=== PATIENT | female | born 1955 | race Caucasian/White ===

== ENCOUNTER 2023-06-12 11:00 | Outpatient (CLI) | payer MEDICARE, SELFPAY ==
[2023-06-12 11:27] LABS: Basophils Percent Auto 0.4 % (0.2-1.2); Eosinophils Absolute Auto 0.2 K/mm3 (0-0.3); Eosinophils Percent Auto 2.2 % (0-4.4); Hemoglobin 12.8 g/dL (12.0-15.0); Immature Granulocyte Absolute 0.05 K/mm3 (0.00-0.031); Immature Granulocyte Percent A 0.5 % (0-0.5); Lymphocytes Absolute Auto 2.24 K/mm3 (0.9-3.2); Lymphocytes Percent Auto 24.5 % (18.3-44.2); Mean Corpuscular HGB Conc 32.8 g/dl (32-36); Mean Corpuscular Hemoglobin 29.7 pg (26-34); Mean Corpuscular Volume 90.5 fl (80-100); Mean Platelet Volume 8.5 fl (7.4-10.4); Monocytes Absolute Auto 0.6 K/mm3 (0.1-0.6); Monocytes Percent Auto 6.1 % (2.6-8.5); Neutrophils Absolute Auto 6.1 K/mm3 (1.3-6.7); Neutrophils Percent Auto 66.3 % (45.5-73.1); Platelet Count Result 336 k/mm3 (150-375); Red Blood Count 4.31 M/mm3 (4.2-5.4); Red Cell Distribution Width 12.6 % (11.5-14.5); White Blood Count 9.2 K/mm3 (4.5-10.0)
[2023-06-12 12:31] LABS: Alanine Aminotransferase 20 U/L (6-35); Albumin Level 4.4 g/dL (3.5-5.1); Alkaline Phosphatase 55 U/L (38-126); Anion Gap 8 mmol/L (8-16); Aspartate Amino Transferase 23 U/L (14-36); Bilirubin,Total 0.7 mg/dL (0.2-1.3); Blood Urea Nitrogen 35 mg/dL (7-17); Calcium 9.7 mg/dL (8.4-10.2); Carbon Dioxide 28 mmol/L (22-30); Chloride 99 mmol/L (98-107); Estimated Glomerular Filt Rate 34; Glucose 109 mg/dL (65-110); Lactate Dehydrogenase 217 U/L (120-246); Potassium 3.5 mmol/L (3.4-5.0); Sodium 135 mmol/L (137-145)
[2023-06-12 12:41] LABS: Iron 93 ug/dL (37-170)
[2023-06-12 12:45] LABS: Percent Iron Saturation 27 % (20-50)
[2023-06-12 13:00] LABS: Thyroid Stimulating Hormone 0.099 uIU/mL (0.465-4.680)
[2023-06-12 13:36] LABS: Folic Acid 18.6 ng/mL (2.76->20)
[2023-06-15 07:23] LABS: Methylmalonic Acid 331 nmol/L (87-318)
[2023-06-16 21:00] LABS: Soluble Transferrin Receptor 2.01 mg/L (0.76-1.76)
== END 2023-06-12 11:01 | disposition home or self-care (01) ==
PROVIDERS: Visit Provider Internal Medicine Hematology & Oncology
DX: D64.9 Anemia, unspecified (principal)
CPT/HCPCS: 36415; 80053; 82607; 82728; 82746; 83540; 83550; 83615; 83921; 84238; 84443; 85025

== ENCOUNTER 2023-11-10 09:35 | Outpatient (CLI) | payer MEDICARE, OTHER, SELFPAY ==
[2023-11-10 09:58] LABS: Basophils Absolute Auto 0.1 K/mm3 (0.0-0.1); Basophils Percent Auto 0.8 % (0.2-1.2); Eosinophils Absolute Auto 0.2 K/mm3 (0-0.3); Eosinophils Percent Auto 3.2 % (0-4.4); Hematocrit 36.8 % (37.0-47.0); Immature Granulocyte Absolute 0.02 K/mm3 (0.00-0.031); Immature Granulocyte Percent A 0.3 % (0-0.5); Lymphocytes Absolute Auto 2.18 K/mm3 (0.9-3.2); Lymphocytes Percent Auto 34.5 % (18.3-44.2); Mean Corpuscular HGB Conc 32.6 g/dl (32-36); Mean Corpuscular Hemoglobin 29.9 pg (26-34); Mean Corpuscular Volume 91.5 fl (80-100); Mean Platelet Volume 8.4 fl (7.4-10.4); Monocytes Absolute Auto 0.5 K/mm3 (0.1-0.6); Monocytes Percent Auto 7.6 % (2.6-8.5); Neutrophils Absolute Auto 3.4 K/mm3 (1.3-6.7); Neutrophils Percent Auto 53.6 % (45.5-73.1); Platelet Count Result 267 k/mm3 (150-375); Red Blood Count 4.02 M/mm3 (4.2-5.4); Red Cell Distribution Width 12.1 % (11.5-14.5); White Blood Count 6.3 K/mm3 (4.5-10.0)
[2023-11-10 10:03] LABS: Blood Urea Nitrogen 30 mg/dL (8-26); Carbon Dioxide 29 mmol/L (22-30); Chloride 100 mmol/L (98-109); Estimated Glomerular Filt Rate 28; Glucose 99 mg/dL (70-105); Ionized Calcium (POC) 1.24 mmol/L (1.11-1.31); Sodium 140 mmol/L (138-146)
== END 2023-11-10 09:36 | disposition home or self-care (01) ==
LOC: ANHLAB 09:45
PROVIDERS: Visit Provider Internal Medicine Hematology & Oncology
DX: D64.9 Anemia, unspecified (principal)
CPT/HCPCS: 36415; 80047; 85025

== ENCOUNTER 2024-05-27 13:43 | Outpatient (CLI) | payer MEDICARE, OTHER, SELFPAY ==
[2024-05-27 14:00] LABS: Basophils Percent Auto 0.4 % (0.2-1.2); Eosinophils Absolute Auto 0.2 K/mm3 (0-0.3); Eosinophils Percent Auto 2.4 % (0-4.4); Hematocrit 35.7 % (37.0-47.0); Hemoglobin 11.8 g/dL (12.0-15.0); Immature Granulocyte Absolute 0.04 K/mm3 (0.00-0.031); Immature Granulocyte Percent A 0.6 % (0-0.5); Lymphocytes Absolute Auto 2.39 K/mm3 (0.9-3.2); Lymphocytes Percent Auto 33.5 % (18.3-44.2); Mean Corpuscular HGB Conc 33.1 g/dl (32-36); Mean Corpuscular Hemoglobin 30.4 pg (26-34); Mean Platelet Volume 8.3 fl (7.4-10.4); Monocytes Absolute Auto 0.4 K/mm3 (0.1-0.6); Monocytes Percent Auto 6.2 % (2.6-8.5); Neutrophils Absolute Auto 4.1 K/mm3 (1.3-6.7); Neutrophils Percent Auto 56.9 % (45.5-73.1); Platelet Count Result 260 k/mm3 (150-375); Red Blood Count 3.88 M/mm3 (4.2-5.4); Red Cell Distribution Width 13.6 % (11.5-14.5); White Blood Count 7.1 K/mm3 (4.5-10.0)
[2024-05-27 16:42] LABS: Anion Gap 8 mmol/L (4-12); Blood Urea Nitrogen 32 mg/dL (7-17); Calcium 9.8 mg/dL (8.4-10.2); Carbon Dioxide 29 mmol/L (22-30); Chloride 98 mmol/L (98-107); Estimated Glomerular Filt Rate 32; Glucose 102 mg/dL (65-110); Potassium 4.6 mmol/L (3.4-5.0); Sodium 135 mmol/L (137-145)
[2024-05-27 16:48] LABS: Iron 83 ug/dL (37-170)
[2024-05-27 16:59] LABS: Percent Iron Saturation 26 % (20-50)
== END 2024-05-27 13:44 | disposition home or self-care (01) ==
LOC: ANHLAB 13:46
PROVIDERS: PCP Specialist; Visit Provider Internal Medicine Hematology & Oncology
DX: D64.9 Anemia, unspecified (principal)
CPT/HCPCS: 36415; 80048; 82728; 83540; 83550; 85025

== ENCOUNTER 2025-02-27 14:56 | Outpatient (CLI) | payer MEDICARE, OTHER, SELFPAY ==
--- OUTSIDE RECORDS SUMMARY | 2025-02-27 15:00 | XMS_ITS ---
Author Organization [facility] Address [address] [place], [place] [id number] Care Team Providers Care Historic Interpreter Name Role Phone RAMON BERRY Unavailable [phone] Сергей Cunningham Unavailable Unavailable Allergies Allergen (clinical drug ingredient) Drug/Non Drug Allergy documented on EMR Reaction Allergy Type Onset Date Status oxaprozin Daypro Unknown Drug Allergy Active Aminoglycoside (FN) Aminoglycosides Unknown Drug Allergy Active aspirin Aspirin Unknown Drug Allergy Active Penicillin Unknown Drug Allergy Active quinine Quinine Unknown Drug Allergy Active tetracycline Tetracycline Unknown Drug Allergy A ctive REASON FOR VISIT *General care Social History Tobacco Use: Social History Observation Description Date Details (start date - stop date) Never Smoker NA - NA Tobacco Control (Standard) Question Answer Notes Tobacco use: Nonsmoker AUDIT-C (Standard) Question Answer Notes Did you have a drink containing alcohol in the p ast year? No Points 0 Interpretation Negative Vital Signs Height 67 in 02/17/2025 Weight 217 lbs 02/17/2025 BMI 33.98 kg/m2 02/17/2025 Height-cm 170.18 cm 02/17/2025 Weight-kg 98.43 kg 02/17/2025 Encounters Encounter Location Date Provider Diagnosis [facility] [address] [place], [place] [id number] 02/17/2025 RAMON BERRY Onychomycosis B35.1 ; Pain in right toe(s) M79.674 ; Pain in left toe(s) M79.675 and Atherosclerosis of [place] arteries of extremities with intermittent claudication, bilateral legs I70.213 Assessments Encounter Date Diagnosis (ICD Code) Assessment Notes Treatment Notes Treatment Clinical Notes Section Notes 02/17/2025 Onychomycosis (ICD-10 - B35.1) Nails 1-5 Bilateral were debrided extensively with nail nippers and emery board, reducing length and girth to pink healthy tissue with any subungual debris and necrotic tissue removed 02/17/2025 Pain in right toe(s) (ICD-10 - M79.674) 02/17/2025 Pain in left toe(s) (ICD-10 - M79.675) 02/17/2025 Atherosclerosis of [place] arteries of extremities with intermittent claudication, bilateral legs (ICD-10 - I70.213) Plan Of Treatment Treatment Notes Assessment Notes Onychomycosis Nails 1-5 Bilateral were debrided extensively with nail nippers and emery board, reducing length and girth to pink healthy tissue with any subungual debris and necrotic tissue removed Next Appt Details Follow Up: 9 weeks, Reason: Provider Name:RAMON ALVARADO, 04/28/2025 03:20:00 PM, [address] [facility] [address] [facility] [address], [place], [id number], Progress Notes * Angus LILLYB: 4 (69 yo F)Acc No.[id number]:02/17/2025 Patient: Latesha BATRES Provider: Chelo Berry DPM :1955 A ge:69 Y S ex:Female Date:02/17/2025 Address:[address] [place], [place] [id number] Subjective: * Chief Complaints: * 1 . *General care. * HPI: H PI: General care P atient presents to the office for at risk foot care. Patient states that their nails are thickened, elongated and painful. Patient states that it is aggravated by shoe gear. Onset is gradual. Patient denies being diabetic., Patient is taking prescription blood thinners., Date last seen by Dr. Cunningham was 02/17/25. , Initials ars. * Medical History: A kaci reflux, Pneumonia, Stroke, Anemia, Asthma/Bronchitis, Cancer, GERD, Leg/Feet cramps, Respiratory disease, Arthritis, Bladder infections, Gout, Angina, Back Trouble, Heart Disease, Varicose veins, High blood pressure, Lung Disease, Restless leg syndrome, Family member . * Family History: F ather: unknown, cancer, kidney stones. M other: unknown, Acid Reflux, arthritis. B rother: unknown, Cancer, High Blood Pressure. S ister: unknown, High Blood Pressure, cancer. * Social History: T obacco Use: T obacco Control (Standard) T obacco use: N onsmoker D rug/Alcohol: A CHAZ-C (Standard) D id you have a drink containing alcohol in the past year? N o P oints 0 I nterpretation N egative * Allergies: Q uinine, Daypro, Penicillin, Aspirin, Tetracycline, Aminoglycosides. Objective: * Vitals: S hoe Size: 10, Wt:217lbs, Wt-k.43 kg, Ht: 67 in, Ht-cm: 170.18 cm, BMI:33.98Index, Body Surface Area: 2.15. * Examination: C onstitutional: Constitutional T he patient is awake, alert, well developed, well groomed and well nourished. . D ermatologic: Skin findings: S kin is thin, atrophic and lacking pedal hair. . Nail pathology: N ails 1-5 bilateral are elongated, thick, discolored, and dystrophic with subungual debris. They are painful to palpation . Ulcer: T here is no evidence of ulceration noted at this time . Hyperkeratotic Skin Lesion T here is no evidence of hyperkeratosis . M usculoskeletal: Muscle Strength M uscle strength is 5/5 in regards to dorsiflexion, plantarflexion, inversion, and eversion in bilateral lower extremities. . Foot Structure T he foot structure is noted to be normal bilaterally . Pain on palpation T here is no pain on palpation . Gait T here is normal gait noted . N eurologic: Muscle power: 5 /5 bilaterally . Gross sensation G ross sensation is intact to light touch. . V ascular: Dorsalis pedis pulse: 0 /4 bilateral . Posterior tibial pulse: 0 /4 bilaterally . Capillary refill: g reater than 3 seconds bilaterally .? Temperature gradient: w arm to cool bilaterally . ? Assessment: * Assessment: 1. O nychomycosis - B35.1 (Primary) 2 . P ain in right toe(s) - M79.674? 3. P ain in left toe(s) - M79.675 4 . A therosclerosis of [place] arteries of extremities with intermittent claudication, bilateral legs - I70.213 Plan: * Treatment: * Procedure Codes: 1 1721 DEBRIDE NAIL, 6 OR MORE, Modifiers: Q8 * Follow Up: 9 weeks * Billing Information: * Visit Code: * Procedure Codes: 65216 DEBRIDE NAIL, 6 OR MORE. Modifiers: Q8 * Electronic signature of RAMON BERRY DPM on 02/27/2025 at 03:00 PM CDT Sign off status: Pending * Provider: Chelo Berry DPM Date: 0 02/17/2025 Generated for Axel Zacarias/Zi on: 0 02/27/2025 03:00 PM CDT History and Physical Notes * HPI (History of Present Illness) Category Sub-Category Detail Notes Category Not es HPI General care Patient presents to the office for at risk foot care. Patient states that their nails are thickened, elongated and painful. Patient states that it is aggravated by shoe gear. Onset is gradual. Patient denies being diabetic., Patient is taking prescription blood thinners., Date last seen by Dr. Cunningham was 02/17/25. , Initials ars Examination Category Sub-Category Detail Notes Category Not es Constitutional Constitutional The patient is a wake, alert, well developed, well groomed and well nourished. Dermatologic Skin findings: Skin is thin, at rophic and lacking pedal hair. Nail pathology: Nails 1-5 bilateral are elongated, thick, discolored, and dystrophic with subungual debris. They are painful to palpation Ulcer: There is no evidence of ulceration noted at this time Hyperkeratotic Skin Lesion There is no e vidence of hyperkeratosis Musculoskeletal Muscle Strength Muscle strength is 5/5 in regards to dorsiflexion, plantarflexion, inversion, and eversion in bilateral lower extremities. Pain on palpation There is no pain on palpation Foot Structure The foot structure i s noted to be normal bilaterally Gait There is normal gait noted Neurologic Muscle power: 5/5 bilaterally Gross sensation Gross sensation is i ntact to light touch. Vascular Dorsalis pedis pulse: 0/4 bilateral Posterior tibial pulse: 0/4 bilaterally Capillary refill: greater than 3 secon ds bilaterally Temperature gradient: warm to cool bilat erally
--- OUTSIDE RECORDS SUMMARY | 2025-02-27 15:00 | XMS_ITS ---
Author Organization [facility] Address [address] [address] Care Team Providers Care Publication Manager Name Role Phone Javier Momin Unavailable [phone] Social History Sex Assigned At : Social History Observation Description Sex Assigned At Male Encounters Encounter Location Date Provider Diagnosis [facility] [address] [facility] [address] [place] [address] 01/24/2025 Javier Momin Chronic kidney disea se, stage 3b N18.32 ; Essential (primary) hypertension I10 ; Heart failure, unspecified I50.9 ; Renal osteodystrophy N25.0 ; Retention of urine, unspecified R33.9 ; Gastro-esophageal reflux disease without esophagitis K21.9 ; Diverticulosis of large intestine without perforation or abscess without bleeding K57.30 ; Low back pain, unspecified M54.50 ; Vitamin D deficiency, unspecified E55.9 ; Hypothyroidism, unspecified E03.9 ; Chronic fatigue, unspecified R53.82 ; Atherosclerotic heart disease of [place] coronary artery with unspecified angina pectoris I25.119 and CAD (coronary artery disease) I25.10 Assessments Encounter Date Diagnosis (ICD Code) Assessment Notes Treatment Notes Treatment Clinical Notes Section Notes 01/24/2025 Chronic kidney disease, stage 3b (ICD-10 - N18.32) 01/24/2025 Essential (primary) hypertension (ICD-10 - I10) 01/24/2025 Heart failure, unspecified (ICD-10 - I50.9) 01/24/2025 Renal osteodystrophy (ICD-10 - N25.0) 01/24/2025 Retention of urine, unspecified (ICD-10 - R33.9) 01/24/2025 Gastro-esophageal reflux disease without esophagitis (ICD-10 - K21.9) 01/24/2025 Diverticulosis of large intestine without perforation or abscess without bleeding (ICD-10 - K57.30) 01/24/2025 Low back pain, unspecified (ICD-10 - M54.50) 01/24/2025 Vitamin D deficiency, unspecified (ICD-10 - E55.9) 01/24/2025 Hypothyroidism, unspecified (ICD-10 - E03.9) 01/24/2025 Chronic fatigue, unspecified (ICD-10 - R53.82) 01/24/2025 Atherosclerotic heart disease of [place] coronary artery with unspecified angina pectoris (ICD-10 - I25.119) 01/24/2025 CAD (coronary artery disease) (ICD-10 - I25.10) Plan Of Treatment Next Appt Details Provider Name:Javier Momin , 03/28/2025 01:45:00 PM, [address] [facility] [address], [address], Progress Notes * ROSANNA DUMASMELVAB: 4 (69 yo F)Acc No.[id number]:01/24/2025 Progress Notes Patient: STEPHEN BATRES Provider: Arturo BLACKWELL MD, F.A.C.P, F.A.S.N. :1955 A ge:69 Y S ex:Female Date:01/24/2025 Address:[address] [place] [address] Subjective: * Chief Complaints: * * Medical History: Objective: * Vitals: Assessment: * Assessment: 1. C hronic kidney disease, stage 3b - N18.32 2 . E ssential (primary) hypertension - I10 3 . H eart failure, unspecified - I50.9 4 . R enal osteodystrophy - N25.0 5 . R etention of urine, unspecified - R33.9 & #160; 6 . G hannah-esophageal reflux disease without esophagitis - K21.9 7 .?Diverticulosis of large intestine without perforation or abscess without bleeding - K57.30 8 . L ow back pain, unspecified - M54.50 9 . V itamin D deficiency, unspecified - E55.9 1 0. H ypothyroidism, unspecified - E03.9 ?11. C hronic fatigue, unspecified - R53.82 1 2. A therosclerotic heart disease of [place] coronary artery with unspecified angina pectoris - I25.119 1 3. C AD (coronary artery disease) - I25.10 Plan: * Treatment: * Billing Information: * Visit Code: 72903 Office Visit, Est Pt., Level 4. * Procedure Codes: * Electronic signature of Austen Momin MD on 02/27/2025 at 03:00 PM CDT Sign off status: Pending * Provider: Arturo BLACKWELL MD, F.A.C.P, F.A.S.N. Date: 0 01/24/2025 Generated for Printing/Faxing/eTransmitting on: 0 02/27/2025 03:00 PM CDT
--- OUTSIDE RECORDS SUMMARY | 2025-02-27 15:00 | XMS_ITS | Clinical Summary ---
Author Organization [facility] Address [address] [place] [address] Care Team Providers Care Assisted Living Administrator Name Role Phone Сергей Cunningham MD Primary Care Provider + Сергей Cunningham MD Unavailable [phone] Source Comments [facility],non-owned Affiliates and Associated Physician Practices is amultiple site organization consisting of ambulatory clinics and hospital sitesin [place], [place], [place] and [place]. This disclosure is being madepursuant to the Care Everywhere program and may not contain all information available regarding this patient. Last updated 18.[facility] Allergies Active Allergy Reactions Criticality Noted Date Comments Aspirin Other Low 09/11/2014 Unknown Erythromycin Anaphylaxis High 11/19/2018 Oxaprozin Other Low 09/11/2014 Unknown Penicillins Other Low 09/11/2014 unknown Pentazocine Anaphylaxis High 11/19/2018 Quinine Other Low 09/11/2014 Unknown Sumatriptan Anaphylaxis High 11/19/2018 Tetracycline Other Low 09/11/2014 unknown Medications * Be aware that medications may not be up to date on this document. Alwaysverify current medications with the patient. spironolactone (ALDACTONE) 100 MG tablet Take 100 mg by mouth once daily 05/10/20 21 Active acetaminophen-codeine (TYLENOL #4) 300-60 MG tablet TAKE 2 TABLETS BY MOUTH EVERY 4 HOURS NEEDED FOR PAIN . DO NOT EXCEED 6 PER 24 HOURS 12/21/19 22 Active albuterol (PROVENTIL;VENTOLIN) (2.5 MG/3ML) 0.083% nebulizer solution Inhale 2.5 mg by mouth 3 times daily as needed 08/17/20 21 Active amLODIPine (NORVASC) 10 MG tablet Take 10 mg by mouth once daily 05/21/20 21 Active Calcium Carb-Cholecalciferol 600-1000 MG-UNIT Take 1 tablet by mouth 2 times daily 07/05/20 21 Active clopidogrel (PLAVIX) 75 MG tablet Take 75 mg by mouth once daily 11/15/19 22 Active diphenhydrAMINE (BENADRYL) 25 MG capsule Take 25 mg by mouth every 6 hours as needed Active Docusate Sodium (DSS) 100 MG Take 100 mg by mouth once daily 07/12/20 21 Active furosemide (LASIX) 20 MG tablet 07/26/20 21 Active gabapentin (NEURONTIN) 300 MG capsule TAKE 1 CAPSULE BY MOUTH EVERY 8 HOURS 11/30/19 22 Active guanFACINE CR 24hr (INTUNIV) 2 MG tablet Take 2 mg by mouth once daily 11/30/19 22 Active isosorbide mononitrate CR 24hr (IMDUR) 120 MG tablet Take 120 mg by mouth once daily 05/21/20 21 Active levETIRAcetam (KEPPRA) 500 MG tablet Take 500 mg by mouth 2 times daily 11/30/19 22 Active linaCLOtide (LINZESS) 145 MCG capsule Take 145 mcg by mouth once daily 06/22/20 21 Active nitroGLYCERIN (NITROSTAT) 0.4 MG tablet Dissolve 0.4 mg under the tongue Active ondansetron (ZOFRAN) 8 MG tablet TAKE 1 TABLET BY MOUTH EVERY 8 HOURS NEEDED FOR NAUSEA 01/09/20 21 Active pantoprazole EC (PROTONIX) 40 MG tablet Take 40 mg by mouth once daily 10/27/19 22 Active ranolazine ER 12hr (RANEXA) 500 MG tablet Take 1 tablet by mouth 2 times daily 11/18/19 21 Active atorvastatin (LIPITOR) 10 MG tablet 1 tab Active calcium carbonate (CALTRATE) 600 MG tablet Active Cholecalciferol 25 MCG (1000 UT) Active cloNIDine (CATAPRES) 0.1 MG tablet Take 0.1 mg by mouth Active EPINEPHrine (EPIPEN) 0.3 MG/0.3ML auto-injector pen Continuous as needed. Active levalbuterol (XOPENEX) 1.25 MG/3ML nebulizer solution Inhale 3 mL by mouth every 8 hours Active losartan - hydroCHLOROthiazide (HYZAAR) 50-12.5 MG tablet losartan-hydr ochlorothiazi de 50-12.5 mg tablet 01/26/20 22 Active Magnesium 200 MG TABS Active Active Problems Problem Noted Date Diagnosed Date Greater trochanteric pain syndrome 12/24/2021 Lumbar radiculopathy 12/24/2021 Sacroiliac joint dysfunction of right side 12/24 Infectious disease contact 06/03/2021 Chronic kidney disease, unspecified 06/01/2021 Dizziness 05/20/2021 Frequent falls 06/24/2020 Overview (12/24/2021): Last Assessment & Plan: Most likely secondary to right foot drop. Would benefit from an AFO. Right foot drop 06/24/2020 Overview (12/24/2021): Last Assessment & Plan: Stable. Requires AFO to ambulate Right hemiparesis 06/24/2020 Overview (12/24/2021): Last Assessment & Plan: Residual weakness secondary to CVA. Depression screening 06/23/2020 Overview (12/24/2021): Last Assessment & Plan: Negative for depression Risk for falls 06/23/2020 Overview (12/24/2021): Last Assessment & Plan: High risk for falls secondary to right foot drop Osteopenia of neck of femur 12/18/2019 Overview (12/24/2021): Last bone density was done in June of 2019. She was started on Fosamax at that time. Last Assessment & Plan: Bone density was improved on a July 05, 2021. Continue calcium plus vitamin- D. Other headache syndrome 12/18/2019 Overview (12/24/2021): Last Assessment & Plan: Most likely Allergic to aspirin 12/16/2019 Overview (12/24/2021): Last Assessment & Plan: Patient gets anaphylaxis from aspirin. Dyspnea on exertion 07/10/2019 Other fatigue 07/10/2019 Atherosclerotic heart diseas e of [place] coronary artery without angina pectoris 06/05/2019 Cerebral infarction due to u nspecified occlusion or stenosis of unspecified cerebral artery 06/05/2019 Essential (primary) hypertension 06/05/2019 Hyperlipidemia 06/05/2019 Chronic stable angina 05/07/2019 Overview (12/24/2021): Last Assessment & Plan: Stable on isosorbide and Ranexa Hypertensive heart disease without heart failure 10/31/2018 Overview (12/24/2021): Last Assessment & Plan: Well controlled on chlorthalidone, amlodipine, clonidine, and guanfacine. Spironolactone and isosorbide on hold. History of coronary artery stent placement 08/15 Overview (12/24/2021): Patient had stent placement in the mid LAD and also proximal to mid RCA on 07/16/2018 Last Assessment & Plan: Stable on clopidogrel Chronic constipation 04/18/2018 Overview (12/24/2021): Last Assessment & Plan: Stable on linzess and docusate sodium. Class 1 obesity due to exces s calories with serious comorbidity and body mass index (BMI) of 33.0 to 33.9 in adult 04/18/2018 Overview (12/24/2021): Last Assessment & Plan: BMI Follow-up includes: exercise counseling. Pure hypercholesterolemia 10/04/2016 Overview (12/24/2021): Last Assessment & Plan: Stable on atorvastatin GERD (gastroesophageal reflux disease) 6 Overview (12/24/2021): Last Assessment & Plan: Stable on pantoprazole Right sided sciatica 03/29/2016 Overview (12/24/2021): Last Assessment & Plan: Pain is worse than usual for 1 week. No history of falling this time. Will continue Tylenol No. 4, gabapentin. Will add baclofen for 1 week to cover for this pain and left neck pain. Allergic rhinitis 03/23/2016 Overview (12/24/2021): Last Assessment & Plan: Stable. Patient takes Benadryl p.r.n. Asthma 03/23/2016 Overview (12/24/2021): Last Assessment & Plan: Stable. Continue albuterol HFA and albuterol nebulizer. Expressive aphasia 03/23/2016 Overview (12/24/2021): Last Assessment & Plan: Stable History of CVA with residual deficit 03/23/2016 Overview (12/24/2021): Last Assessment & Plan: Stable on clopidogrel and atorvastatin Seizure disorder 03/23/2016 Overview (12/24/2021): Last Assessment & Plan: Brandon currently on hold Syncope and collapse 09/11/2014 Immunizations Immunization Administration Dates Next Due INFLUENZA VACCINE, TRIV. (AF LURIA, FLUZONE TRIVALENT; 6MO+) (IIV3) 09/16/2014 PNEUMOCOCCAL PPSV23 09/16/2014 Family History Medical History Relation Name Comments Cancer Father Colon Heart Disease Father Hypertension Father Cancer Mother Breast Heart Disease Mother Hypertension Mother Relation Name Status Comments Father Mother Social History Tobacco Use Types Packs/Day Years Used Date Smoking Tobacco: Former Smokeless Tobacco: Never Alcohol Use Standard Drinks/Week Comments No 0 (1 standard drink = 0.6 oz pur e alcohol) Comments Unknown Sex and Gender Information Value Date Recorded Sex Assigned at Female 08/20/2024 8:11 PM FIRE PREVENTION INSPECTOR Legal Sex Female 6:22 PM FIRE PREVENTION INSPECTOR Gender Identity Female 08/20/2024 8:11 PM FIRE PREVENTION INSPECTOR Sexual Orientation Not on file Last Filed Vital Signs Vital Sign Reading Time Taken Comments Blood Pressure 129/66 09/16/2014 11:53 AM FIRE PREVENTION INSPECTOR Pulse 79 09/16/2014 11:53 AM FIRE PREVENTION INSPECTOR Temperature 36.2 C (97.2 F) 09/16/2014 11:53 AM FIRE PREVENTION INSPECTOR Respiratory Rate 22 09/16/2014 11:53 AM FIRE PREVENTION INSPECTOR Oxygen Saturation 100% 09/16/2014 11:53 AM FIRE PREVENTION INSPECTOR Inhaled Oxygen Concentration - - Weight 104.3 kg (230 lb) 12/24/2021 10:59 AM CDT Height 170.2 cm (5' 7) 12/24/2021 10:59 AM CDT Body Mass Index 36.02 12/24/2021 10:59 AM CDT Plan of Treatment Health Maintenance Due Date Last Done Comments BONE DENSITY TESTING 1955 COLOGUARD (AGES 45-75) - COLON CA SCREENING 1955 COLON MONITORING 1955 COLONOSCOPY - COLON CA SCREENING 1955 CT COLONOGRAPHY - COLON CA SCREENING 1955 Colorectal Cancer Screening 1955 FIT - COLON CA SCREENING 1955 FLEX SIG - COLON CA SCREENING 1955 MAMMOGRAM 1955 HEPATITIS C SCREENING 09/02/1971 DTAP/TDAP/TD VACCINES (1 - Tdap) 1972 ZOSTER VACCINE (1 of 2) 2003 Respiratory Syncytial Virus (RSV) Vaccine Pt: or over 60 yrs (1 - Risk 60-74 years 1-dose series) 2013 PNEUMOCOCCAL VACCINE 50+ (2 of 2 - PCV) 09/16/2015 09/16/2014 SCREENING FOR DIABETES 12/24/2021 5, 09/15/2014, 09/14/2014, Additional history exists COVID-19 VACCINE ( season) 2024 10/29/2020, 10/08/2020 DEPRESSION SCREENING 08/21/2024 INFLUENZA VACCINE (Season Ended) 2025 08/07/2019, 07/17/2018, 07/05/2017, Additional history exists HEPATITIS B VACCINE Aged Out No longe r eligible based on patient's age to complete this topic HIB VACCINE Aged Out No longer eligi ble based on patient's age to complete this topic HPV VACCINE Aged Out No longer eligi ble based on patient's age to complete this topic MENINGOCOCCAL (Group B) VACCINE SHARED DECISION-MAKING Aged Out No longer eligible based on patient's age to complete this topic MENINGOCOCCAL GROUPS A/C/Y/W VACCINE Aged Out No longer eligible based on patient's age to complete this topic Procedures Procedure Name Priority Date/Time Associated Diagnosis Comments BASIC METABOLIC PANEL (CALCIUM TOTAL) Routine 09/16/2014 6:17 AM FIRE PREVENTION INSPECTOR from Last 3 Months or Most Recently Relevant to Health Maintenance Results * (ABNORMAL) BASIC METABOLIC PANEL (CALCIUM TOTAL) (09/16/2014 6:17 AM FIRE PREVENTION INSPECTOR) BUN 28(H) 7 - 26 mg/dL [facility] Creatinine 1.0 0.6 - 1.2 mg/dL [facility] Sodium 135(L) 136 - 145 mmol/L [facility] Potassium 3.5 3.5 - 4.5 mmol/L [facility] Chloride 98 98 - 107 mmol/L [facility] CO2 24 22 - 29 mmol/L [facility] Glucose 102 70 - 115 mg/dL [facility] Calcium 9.0 8.4 - 10.2 mg/dL [facility] Anion Gap 17 8 - 18 [facility] BUN/Creatinine Ratio 28(H) 7 - 23 [facility] Osmolality Calculated 272 270 - 300 mOsm/kg [facility] eGFR 56(L) >60 mL/min/1.7 3 m2 [facility] Blood specimen (specimen) BLOOD SPECIMEN / Unknown 09/16/2014 6:17 AM FIRE PREVENTION INSPECTOR 09/16/2014 6:17 AM FIRE PREVENTION INSPECTOR us Basim Alvarez MD LAB - CHEMISTRY ORDERABLES Fin al Result [facility] [address] [place] [address] from Last 3 Months or Most Recently Relevant to Health Maintenance Insurance MEDICARE [facility] MEDICARE [facility] Care Teams Assisted Living Administrator Relationship Specialty Start Date End Date Сергей Cunningham MD PCP - General 09/11/14 Сергей Cunningham MD [address] [place] [address] PCP - Strive [facility] 12/19/24
--- OUTSIDE RECORDS SUMMARY | 2025-02-27 15:01 | XMS_ITS | Clinical Summary ---
Author Organization [facility] Address [address] [place] [address] Care Team Providers Care End User Support Specialist Name Role Phone Unavailable Primary Care Provider Unavailabl e Social History Tobacco Use Types Packs/Day Years Used Date Smoking Tobacco: Never Assessed Comments Unknown Sex and Gender Information Value Date Recorded Sex Assigned at Not on file Legal Sex Female 6:03 PM CDT Gender Identity Not on file Sexual Orientation Not on file Plan of Treatment Health Maintenance Due Date Last Done Comments Colorectal Cancer Screening Colonoscopy (10 Years) 1953 Hepatitis C 1971 DTaP, Tdap and Td Vaccines (1 - Tdap) 1972 Mammogram Screening 1993 Zoster Vaccines (1 of 2) 2003 Dexa Scan (General) 2018 COVID-19 Vaccine (3 - season) 2024 10/29/2020, 10/08/2020 RSV Immunization or 60+ Years (1 - 1-dose 75+ series) 2028 Pneumococcal Vaccine: 50+ Years Completed 06/24/2020, 08/21/2019, 10/31/2018, Additional history exists Meningococcal B Vaccine Aged Out No l onger eligible based on patient's age to complete this topic Meningococcal Vaccine Aged Out No zofia curtis eligible based on patient's age to complete this topic RSV Immunizations Under 20 Months Aged Out No longer eligible based on patient's age to complete this topic
--- OUTSIDE RECORDS SUMMARY | 2025-02-27 15:01 | XMS_ITS | Encounter Summary ---
Author Organization [facility] Facility Care Team Providers Care Race Engine Builder Name Role Phone Сергей Cunningham MD Primary Care Provider + Reina Mena MD Unavailable Pedro Momin MD Unavailable Encounter Details Date Type Department Care Team (Latest Contact Info) Description 09/19/2017 Orders Only [facility] CLINCONV ProviderVicky MD [address] [place], [place] [id number] Social History Tobacco Use Types Packs/Day Years Used Date Smoking Tobacco: Former Comments Unknown Sex and Gender Information Value Date Recorded Sex Assigned at Not on file Legal Sex Female 7:20 PM ELEMENTARY TEACHER Gender Identity Female 08/19/2022 6:55 AM ELEMENTARY TEACHER Sexual Orientation Not on file documented as of this encounter Plan of Treatment Not on file documented as of this encounter Procedures Procedure Name Priority Date/Time Associated Diagnosis Comments COLONOSCOPY - SCAN 09/19/2017 12 :00 AM ELEMENTARY TEACHER documented in this encounter Results * COLONOSCOPY - SCAN (09/19/2017 12:00 AM ELEMENTARY TEACHER) Narrative 09/19/2017 12:00 AM ELEMENTARY TEACHER Ordered by an unspecified provider. us Historical Provider Final Res ult documented in this encounter Visit Diagnoses Not on filedocumented in this encounter Additional Health Concerns Infection Onset Date Last Indicated Resolved Time COVID: Suspected 04/12/2024 04/12/2024 04/12/2024 6:54 PM CDT COVID: Suspected 11/06/2024 11/06/2024 11/06/2024 2:41 PM CDT COVID: Suspected 02/20/2025 02/20/2025 02/20/2025 8:21 AM CDT documented as of this encounter Care Teams Race Engine Builder Relationship Specialty Start Date End Date Сергей Cunningham MD [address] [place] [address] PCP - General Internal Medicine 01/15/19 Reina Mena MD [address] [facility] [address] Consulting Physician Pain Management 10/12/22 [place] [address] [address] Consulting Physician Cardiology 08/04/23 documented as of this encounter
--- OUTSIDE RECORDS SUMMARY | 2025-02-27 15:01 | XMS_ITS | Patient Health Record ---
Author Organization [facility] Address [address] [place] [address] Care Team Providers Care Semi Automatic Sewing Machine Operator Name Role Phone Javier Momin Unavailable [phone] Reason For Referral No Information Medications Medication SIG (Take, Route, Frequency, Duration) Notes Start Date End Date Status Allopurinol 100 MG Take 1 tablet by fady th once daily; Duration: 90 Active Calcitriol 0.25 MCG Take 1 capsule by mo uth once daily; Duration: 90 Active Vitamin D (Ergocalciferol) 1.25 MG (37732 UT) 1 capsule Orally twice a week; Duration: 90 days Active Losartan Potassium 50 MG Take 1 tablet b y mouth once daily; Duration: 90 Active Social History Sex Assigned At : Social History Observation Description Sex Assigned At Male Problems Problem Type SNOMED Code ICD Code Onset Dates Problem Status W/U Status Risk Notes Problem Hypothyroidism (45107295) Hypothyroidism, unspecified (E03.9) Active confirmed Problem Vitamin D deficiency (63738632) Vitamin D deficiency, unspecified (E55.9) Active confirmed Problem Essential hypertension (94808651) Essential (primary) hypertension (I10) Active confirmed Problem Angina (959674855) 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) Active confirmed Problem Heart failure (63059279) Heart failure, unspecified (I50.9) Active confirmed Problem Gastro-esophageal reflux disease without esophagitis (279458718) Gastro-esophageal reflux disease without esophagitis (K21.9) Active confirmed Problem Diverticular disease of colon (339798853) Diverticulosis of large intestine without perforation or abscess without bleeding (K57.30) Active confirmed Problem Chronic kidney disease stage 4 (564732154) Chronic kidney disease, stage 4 (severe) (N18.4) Active confirmed Problem Renal osteodystrophy (43063817) Renal osteodystrophy (N25.0) Active confirmed Problem Retention of urine (293104174) Retention of urine, unspecified (R33.9) Active confirmed Problem Chronic fatigue syndrome (disorder) (88357505) Chronic fatigue, unspecified (R53.82) Active confirmed Problem Chronic kidney disease stage 3B (disorder) (530178107) Chronic kidney disease, stage 3b (N18.32) Active confirmed Problem Low back pain (452907258) Low back pain, unspecified (M54.50) Active confirmed Problem Coronary artery disease (31342486) CAD (coronary artery disease) (I25.10) Active confirmed Encounters Encounter Location Date Provider Diagnosis [facility] [address] [address] 05/03/2024 Javier Momin Chronic kidney disea se, stage 3b N18.32 ; Essential (primary) hypertension I10 ; Gastro-esophageal reflux disease without esophagitis K21.9 ; Heart failure, unspecified I50.9 ; Renal osteodystrophy N25.0 and Retention of urine, unspecified R33.9 [facility] [address] [place] [address] 06/14/2024 Javier Momin Chronic kidney disea se, stage 3a N18.31 ; Chronic kidney disease, stage 4 (severe) N18.4 ; Essential (primary) hypertension I10 ; Heart failure, unspecified I50.9 ; Renal osteodystrophy N25.0 ; Retention of urine, unspecified R33.9 ; Chronic kidney disease, stage 3b N18.32 and Gastro-esophageal reflux disease without esophagitis K21.9 [facility] [address] [place] [address] 08/30/2024 Javier Momin Chronic kidney disea se, stage 3b N18.32 ; Low back pain, unspecified M54.50 ; Diverticulosis of large intestine without perforation or abscess without bleeding K57.30 ; Hypothyroidism, unspecified E03.9 ; Vitamin D deficiency, unspecified E55.9 and Renal osteodystrophy N25.0 [facility] [address] [address] 10/04/2024 Javier Momin Chronic kidney disea se, stage 3b N18.32 ; Essential (primary) hypertension I10 ; Heart failure, unspecified I50.9 ; Renal osteodystrophy N25.0 ; Retention of urine, unspecified R33.9 ; Gastro-esophageal reflux disease without esophagitis K21.9 ; Chronic kidney disease, stage 4 (severe) N18.4 ; Diverticulosis of large intestine without perforation or abscess without bleeding K57.30 ; Low back pain, unspecified M54.50 ; Vitamin D deficiency, unspecified E55.9 and Hypothyroidism, unspecified E03.9 [facility] [address] [place] [address] 10/18/2024 Javier Momin Chronic kidney disea se, stage 3b N18.32 ; Renal osteodystrophy N25.0 ; Chronic fatigue, unspecified R53.82 ; Atherosclerotic heart disease of stebbins coronary artery with unspecified angina pectoris I25.119 ; CAD (coronary artery disease) I25.10 ; Essential (primary) hypertension I10 ; Heart failure, unspecified I50.9 ; Retention of urine, unspecified R33.9 ; Gastro-esophageal reflux disease without esophagitis K21.9 ; Chronic kidney disease, stage 4 (severe) N18.4 ; Diverticulosis of large intestine without perforation or abscess without bleeding K57.30 ; Low back pain, unspecified M54.50 ; Vitamin D deficiency, unspecified E55.9 and Hypothyroidism, unspecified E03.9 [facility] [address] [place] [address] 11/29/2024 Javier Momin Chronic kidney disea se, stage 3b N18.32 ; Essential (primary) hypertension I10 ; Heart failure, unspecified I50.9 ; Renal osteodystrophy N25.0 ; Retention of urine, unspecified R33.9 ; Gastro-esophageal reflux disease without esophagitis K21.9 ; Chronic kidney disease, stage 4 (severe) N18.4 ; Diverticulosis of large intestine without perforation or abscess without bleeding K57.30 ; Low back pain, unspecified M54.50 ; Vitamin D deficiency, unspecified E55.9 ; Hypothyroidism, unspecified E03.9 ; Chronic fatigue, unspecified R53.82 ; Atherosclerotic heart disease of stebbins coronary artery with unspecified angina pectoris I25.119 and CAD (coronary artery disease) I25.10 [facility] [address] [place] [address] 01/24/2025 Javier Momin Chronic kidney disea se, [...] unspecified R53.82 ; Atherosclerotic heart disease of stebbins coronary artery with unspecified angina pectoris I25.119 and CAD (coronary artery disease) I25.10 [facility] [address] [facility] [address] [place] [address] 07/25/2024 Javier Samuel [address] [place] [address] 10/17/2024 Javier Momin [facility] [address] [place] [address] 10/18/2024 Javier Momin [facility] [address] [address] 02/18/2025 Javier Momin Assessments Encounter Date Diagnosis (ICD Code) Assessment Notes Treatment Notes Treatment Clinical Notes Section Notes 05/03/2024 Chronic kidney disease, stage 3b (ICD-10 - N18.32) 06/14/2024 Chronic kidney disease, stage 4 (severe) (ICD-10 - N18.4) 06/14/2024 Chronic kidney disease, stage 3a (ICD-10 - N18.31) 08/30/2024 Chronic kidney disease, stage 3b (ICD-10 - N18.32) 10/04/2024 Chronic kidney disease, stage 3b (ICD-10 - N18.32) 10/18/2024 Renal osteodystrophy (ICD-10 - N25.0) 10/18/2024 Chronic kidney disease, stage 3b (ICD-10 - N18.32) 11/29/2024 Chronic kidney disease, stage 3b (ICD-10 - N18.32) 01/24/2025 Chronic kidney disease, stage 3b (ICD-10 - N18.32) 01/24/2025 Essential (primary) hypertension (ICD-10 - I10) 10/18/2024 Chronic fatigue, unspecified (ICD-10 - R53.82) 11/29/2024 Essential (primary) hypertension (ICD-10 - I10) 08/30/2024 Low back pain, unspecified (ICD-10 - M54.50) 10/04/2024 Essential (primary) hypertension (ICD-10 - I10) 06/14/2024 Essential (primary) hypertension (ICD-10 - I10) 05/03/2024 Essential (primary) hypertension (ICD-10 - I10) 05/03/2024 Gastro-esophageal reflux disease without esophagitis (ICD-10 - K21.9) 06/14/2024 Heart failure, unspecified (ICD-10 - I50.9) 10/04/2024 Heart failure, unspecified (ICD-10 - I50.9) 08/30/2024 Diverticulosis of large intestine without perforation or abscess without bleeding (ICD-10 - K57.30) 10/18/2024 Atherosclerotic heart disease of stebbins coronary artery with unspecified angina pectoris (ICD-10 - I25.119) 01/24/2025 Heart failure, unspecified (ICD-10 - I50.9) 11/29/2024 Heart failure, unspecified (ICD-10 - I50.9) 11/29/2024 Renal osteodystrophy (ICD-10 - N25.0) 01/24/2025 Renal osteodystrophy (ICD-10 - N25.0) 10/18/2024 CAD (coronary artery disease) (ICD-10 - I25.10) 08/30/2024 Hypothyroidism, unspecified (ICD-10 - E03.9) 10/04/2024 Renal osteodystrophy (ICD-10 - N25.0) 06/14/2024 Renal osteodystrophy (ICD-10 - N25.0) 05/03/2024 Heart failure, unspecified (ICD-10 - I50.9) 05/03/2024 Renal osteodystrophy (ICD-10 - N25.0) 06/14/2024 Retention of urine, unspecified (ICD-10 - R33.9) 10/04/2024 Retention of urine, unspecified (ICD-10 - R33.9) 08/30/2024 Vitamin D deficiency, unspecified (ICD-10 - E55.9) 10/18/2024 Essential (primary) hypertension (ICD-10 - I10) 01/24/2025 Retention of urine, unspecified (ICD-10 - R33.9) 11/29/2024 Retention of urine, unspecified (ICD-10 - R33.9) 11/29/2024 Gastro-esophageal reflux disease without esophagitis (ICD-10 - K21.9) 01/24/2025 Gastro-esophageal reflux disease without esophagitis (ICD-10 - K21.9) 10/18/2024 Heart failure, unspecified (ICD-10 - I50.9) 08/30/2024 Renal osteodystrophy (ICD-10 - N25.0) 10/04/2024 Gastro-esophageal reflux disease without esophagitis (ICD-10 - K21.9) 06/14/2024 Chronic kidney disease, stage 3b (ICD-10 - N18.32) 05/03/2024 Retention of urine, unspecified (ICD-10 - R33.9) 06/14/2024 Gastro-esophageal reflux disease without esophagitis (ICD-10 - K21.9) 10/04/2024 Chronic kidney disease, stage 4 (severe) (ICD-10 - N18.4) 10/18/2024 Retention of urine, unspecified (ICD-10 - R33.9) 01/24/2025 Diverticulosis of large intestine without perforation or abscess without bleeding (ICD-10 - K57.30) 11/29/2024 Chronic kidney disease, stage 4 (severe) (ICD-10 - N18.4) 11/29/2024 Diverticulosis of large intestine without perforation or abscess without bleeding (ICD-10 - K57.30) 01/24/2025 Low back pain, unspecified (ICD-10 - M54.50) 10/18/2024 Gastro-esophageal reflux disease without esophagitis (ICD-10 - K21.9) 10/04/2024 Diverticulosis of large intestine without perforation or abscess without bleeding (ICD-10 - K57.30) 10/04/2024 Low back pain, unspecified (ICD-10 - M54.50) 10/18/2024 Chronic kidney disease, stage 4 (severe) (ICD-10 - N18.4) 11/29/2024 Low back pain, unspecified (ICD-10 - M54.50) 01/24/2025 Vitamin D deficiency, unspecified (ICD-10 - E55.9) 01/24/2025 Hypothyroidism, unspecified (ICD-10 - E03.9) 11/29/2024 Vitamin D deficiency, unspecified (ICD-10 - E55.9) 10/18/2024 Diverticulosis of large intestine without perforation or abscess without bleeding (ICD-10 - K57.30) 10/04/2024 Vitamin D deficiency, unspecified (ICD-10 - E55.9) 10/04/2024 Hypothyroidism, unspecified (ICD-10 - E03.9) 10/18/2024 Low back pain, unspecified (ICD-10 - M54.50) 11/29/2024 Hypothyroidism, unspecified (ICD-10 - E03.9) 01/24/2025 Chronic fatigue, unspecified (ICD-10 - R53.82) 01/24/2025 Atherosclerotic heart disease of stebbins coronary artery with unspecified angina pectoris (ICD-10 - I25.119) 11/29/2024 Chronic fatigue, unspecified (ICD-10 - R53.82) 10/18/2024 Vitamin D deficiency, unspecified (ICD-10 - E55.9) 11/29/2024 Atherosclerotic heart disease of stebbins coronary artery with unspecified angina pectoris (ICD-10 - I25.119) 10/18/2024 Hypothyroidism, unspecified (ICD-10 - E03.9) 01/24/2025 CAD (coronary artery disease) (ICD-10 - I25.10) 11/29/2024 CAD (coronary artery disease) (ICD-10 - I25.10) Plan Of Treatment Next Appt Details Provider Name:Javier Momin , 03/28/2025 01:45:00 PM, [address], [facility] [address], [place], [address],
--- OUTSIDE RECORDS SUMMARY | 2025-02-27 15:01 | XMS_ITS | Encounter Summary ---
Author Organization [facility] Healthcare Address [address] [place] [address] Care Team Providers Care Senior Education Specialist Name Role Phone Сергей Cunningham MD Primary Care Provider + Reina Mena MD Unavailable Pedro Momin MD Unavailable Encounter Details Date Type Department Care Team (Late st Contact Info) Description 02/18/2025 Results Follow-Up [facility] Primary Care [address] [place] [address] Azucena Dickinson PA [address] [place] [address] XR Spine Thoracic 2 Views, XR Ribs Left 2 Views, XR Spine Lumbar 4 or More Views, Additional followed-up results: 2 Social History Tobacco Use Types Packs/Day Years Used Date Smoking Tobacco: Former Cigarettes Q uit: 1984 Smokeless Tobacco: Never Alcohol Use Standard Drinks/Week Comments Never 0 (1 standard drink = 0.6 oz pur e alcohol) OASIS D0700: Social Isolation Answer Da te Recorded Frequency of experiencing loneliness or isolatio n Never 05/14/2024 OASIS A1250: Transportation Answer Date Recorded Lack of Transportation (Medical) No 05/14/2024 Lack of Transportation (Non-Medical) No 05/14/2024 Patient Unable or Declines to Respond No 05/14/2024 OASIS B1300: Health Literacy Answer Javier e Recorded Frequency of needing help to read materials from doctor or pharmacy Never 05/14/2024 [facility] Utilities Answer Date Recorded In the past 12 months has th e electric, gas, oil, or water company threatened to shut off services in your home? No 04/15/2024 Social Connection and Isolat ion Panel [NHANES] Answer Date Recorded In a typical week, how many times do you talk on the phone with family, friends, or neighbors? More than three times a week 04/15/2024 How often do you get togethe r with friends or relatives? More than three times a week 04/15/2024 How often do you attend chur ch or yazdanism services? 1 to 4 times per year 04/15/2024 Do you belong to any clubs o r organizations such as restorationism groups, unions, fraternal or athletic groups, or school groups? Yes 04/15/2024 How often do you attend meet ings of the clubs or organizations you belong to? 1 to 4 times per year 04/15/2024 Are you , , di vorced, , never , or living with a partner? 04/15/2024 AUDIT-C Answer Date Recorded Q1: How often do you have a drink containing alcohol? Never 02/17/2025 Q2: How many drinks containi ng alcohol do you have on a typical day when you are drinking? Patient does not drink Q3: How often do you have si x or more drinks on one occasion? Never 02/17/2025 Overall Financial Resource Strain (CARDIA) Answe r Date Recorded How hard is it for you to pa y for the very basics like food, housing, medical care, and heating? Not hard at all 04/15/2024 PHQ-2 Answer Date Recorded PHQ-2 Total Score (If total score is 3 or more points, staff should administer the PHQ-9) 0 10/03/2024 Hunger Vital Sign Answer Date Recorded Within the past 12 months, y ou worried that your food would run out before you got the money to buy more. Never true 04/15/20 24 Within the past 12 months, t he food you bought just didn't last and you didn't have money to get more. Never true 04/15/2024 PRAPARE - Transportation Answer Date Re corded In the past 12 months, has l ack of transportation kept you from medical appointments or from getting medications? No 03/22 In the past 12 months, has l ack of transportation kept you from meetings, work, or from getting things needed for daily living? No 04/15/2024 Housing Stability Vital Sign Answer Javier e Recorded In the last 12 months, was t here a time when you were not able to pay the mortgage or rent on time? No 04/15/2024 In the past 12 months, how m any times have you moved where you were living? 0 04/15/2024 At any time in the past 12 m [facility], were you homeless or living in a [facility] (including now)? No 04/15/2024 Personal Safety Answer Date Recorded Have you ever been in or are you currently in a harmful physical or emotional relationship or is someone making you feel afraid or unsafe? Denies 02/20/2025 Comments No Sex and Gender Information Value Date Recorded Sex Assigned at Not on file Legal Sex Female 7:20 PM BARREL SCRAPER Gender Identity Female 08/19/2022 6:55 AM BARREL SCRAPER Sexual Orientation Not on file documented as of this encounter Plan of Treatment Not on file documented as of this encounter Visit Diagnoses Not on filedocumented in this encounter Additional Health Concerns Infection Onset Date Last Indicated Resolved Time COVID: Suspected 02/20/2025 02/20/2025 02/20/2025 8:21 AM CDT documented as of this encounter Care Teams Senior Education Specialist Relationship Specialty Start Date End Date Сергей Cunningham MD [address] [place] [address] PCP - General Internal Medicine 01/15/19 Reina Mena MD [address] [facility], [address] [address] Consulting Physician Pain Management 10/12/22 [place] [id number] [address] Consulting Physician Cardiology 08/04/23 documented as of this encounter
--- OUTSIDE RECORDS SUMMARY | 2025-02-27 15:01 | XMS_ITS | Encounter Summary ---
Author Organization [facility] Facility Care Team Providers Care Rug Receiving Clerk Name Role Phone Сергей Cunningham MD Primary Care Provider + Reina Mena MD Unavailable Pedro Momin MD Unavailable Encounter Details Date Type Department Care Team (Latest Contact Info) Description 08/31/2017 Orders Only [facility] CLINCONV ProviderVicky MD [address] [place] [address] Social History Tobacco Use Types Packs/Day Years Used Date Smoking Tobacco: Former Comments Unknown Sex and Gender Information Value Date Recorded Sex Assigned at Not on file Legal Sex Female 7:20 PM TENSION WORKER Gender Identity Female 08/19/2022 6:55 AM TENSION WORKER Sexual Orientation Not on file documented as of this encounter Plan of Treatment Not on file documented as of this encounter Procedures Procedure Name Priority Date/Time Associated Diagnosis Comments PROCEDURE - RESULT 08/31/2017 12 :00 AM TENSION WORKER documented in this encounter Results * PROCEDURE - RESULT (08/31/2017 12:00 AM TENSION WORKER) Narrative 08/31/2017 12:00 AM TENSION WORKER Ordered by an unspecified provider. us Historical [...] documented as of this encounter Care Teams Rug Receiving Clerk Relationship Specialty Start Date End Date Сергей Cunningham MD [address] [place] [address] PCP - General Internal Medicine 01/15/19 Reina Mena MD [address] [facility] [address] Consulting Physician Pain Management 10/12/22 [place] [address] [address] Consulting Physician Cardiology 08/04/23 documented as of this encounter
--- OUTSIDE RECORDS SUMMARY | 2025-02-27 15:01 | XMS_ITS | Clinical Summary ---
Author Organization [facility] Address [address] [place] [id number] Care Team Providers Care Die Set Up Worker Name Role Phone Сергей Cunningham MD Primary Care Provider [phone] Allergies Active Allergy Reactions Criticality Noted Date Comments Aspirin Anaphylaxis,Other (S ee Comments),Rash High 04/17/2014 Unknown Erythromycin Anaphylaxis High 11/19/2018 Oxaprozin Anaphylaxis,Other (S ee Comments),Unknown High 09/11/2014 Unknown Penicillins Anaphylaxis,Other (S ee Comments),Unknown High 04/17/2014 unknown anaphylaxis Pentazocine Anaphylaxis,Unknown High 01/01/2018 Quinine Anaphylaxis,Other (S ee Comments),Unknown High 09/11/2014 Unknown Sumatriptan Anaphylaxis High 11/19/2018 Tetracyclines Anaphylaxis,Nausea a nd Vomiting,Unknown High 09/11/2014 unknown Medications ranolazine ER (RANEXA) 500 mg Extended Release 12 hour tablet TAKE 1 TABLET BY MOUTH TWICE A DAY 02/19/20 20 Active pantoprazole (PROTONIX) 40 mg Tablet, Delayed Release (E.C.) TAKE 1 TABLET BY MOUTH EVERY DAY 03/25/20 20 Active ondansetron (ZOFRAN) 8 mg Tablet TAKE 1 TABLET BY MOUTH THREE TIMES A DAY 03/16/20 20 Active levETIRAcetam (KEPPRA) 500 mg tablet TAKE 1 TABLET BY MOUTH TWICE A DAY 02/25/20 20 Active levalbuterol (XOPENEX) 1.25 mg/3 mL Solution for Nebulization Take 3 mL by inhalation. Active guanFACINE (INTUNIV) 2 mg Extended Release 24 hour tablet TAKE 1 TABLET BY MOUTH EVERY DAY 02/18/20 20 Active EPINEPHrine (EPIPEN) 0.3 mg/0.3 mL Auto-Injector Inject 1 Pen by intramuscular injection. 04/05/20 Active diphenhydrAMINE (BENADRYL) 25 mg capsule Take 25 mg by mouth. Active clopidogreL (PLAVIX) 75 mg Tablet TAKE ONE TABLET BY MOUTH ONCE DAILY 02/18/20 Active cloNIDine HCL (CATAPRES) 0.1 mg tablet Take 0.1 mg by mouth. Active atorvastatin (LIPITOR) 10 mg tablet 1 tab Active amLODIPine (NORVASC) 10 mg tablet TAKE 1 TABLET BY MOUTH EVERY DAY 03/25/20 Active acetaminophen-co deine (TYLENOL #4) 300-60 mg tablet TAKE TWO TABLETS BY MOUTH EVERY 4 HOURS NEEDED FOR PAIN 01/27/20 Active albuterol (PROVENTIL,FEDERICO PERLITA) 2.5 mg /3 mL (0.083 %) Solution for Nebulization Take 2.5 mg by inhalation. Active furosemide (LASIX) 20 mg tablet Take 1 Tablet (20 mg) by mouth daily. 30 Tablet 1 04/12/20 Active spironolactone (ALDACTONE) 100 mg tablet Take 1 Tablet (100 mg) by mouth daily. 30 Tablet 1 04/12/20 Active Additional Information Patient taking differently: 25 mgOral DAILY, Reported on 05/28/2024 allopurinoL (ZYLOPRIM) 100 mg tablet Take 100 mg by mouth daily. 05/14/20 24 Active losartan (COZAAR) 50 mg tablet Take 50 mg by mouth daily. 08/09/20 Active Active Problems Problem Noted Date Diagnosed Date Fall 04/09/2023 Acute non-recurrent maxillary sinusitis 03/08/20 23 Overview (04/09/2023): Last Assessment & Plan: Mostly sinus congestion. Pt had anaphylactic reaction to PCN, erythromycin and doxy. I didn't consider antibiotic as there is no significant danger from not using antibiotics. Will try prednisone taper to improve congestion, also can try claritin 10 mg as needed. Chronic bilateral low back pain without sciatica 01/24/2022 Overview (04/09/2023): Last Assessment & Plan: Stable on Tylenol No. 4 and gabapentin. Chronic kidney disease, unspecified 06/01/2021 Depression screening 06/23/2020 Overview (04/09/2023): Last Assessment & Plan: Negative for depression Last Assessment & Plan: Negative for depression Cerebral infarction due to u nspecified occlusion or stenosis of unspecified cerebral artery 06/05/2019 Essential (primary) hypertension 06/05/2019 Hyperlipidemia 06/05/2019 Atherosclerotic heart diseas e of [place] coronary artery without angina pectoris 08/15/2018 Overview (04/09/2023): Cardiac catheterization done on 07/16/2018 showed a occlusive disease involving the mid LAD and 20% stenosis in the distal and proximal LAD. Circumflex has 25% stenosis. RCA has proximal 30% followed was on 5% stenosis. Distally it has a 30% and 60% les Last Assessment & Plan: Stable on atorvastatin and clopidogrel. Not on aspirin secondary to aspirin allergy Chronic constipation 04/18/2018 Overview (04/09/2023): Last Assessment & Plan: Stable on Linzess Last Assessment & Plan: Stable on linzess and docusate sodium. Class 2 severe obesity due t o excess calories with serious comorbidity and body mass index (BMI) of 37.0 to 37.9 in adult 04/18/2018 Overview (04/09/2023): Last Assessment & Plan: BMI Follow-up includes: exercise counseling. Last Assessment & Plan: BMI Follow-up includes: exercise counseling. GERD (gastroesophageal reflux disease) 6 Overview (04/09/2023): Last Assessment & Plan: Stable on pantoprazole Last Assessment & Plan: Stable on pantoprazole Allergic rhinitis 03/23/2016 Overview (04/09/2023): Last Assessment & Plan: Stable. Patient takes Benadryl p.r.n. Asthma 03/23/2016 Overview (04/09/2023): Last Assessment & Plan: Stable. Continue albuterol HFA and albuterol nebulizer Last Assessment & Plan: Stable. Continue albuterol HFA and albuterol nebulizer. History of CVA with residual deficit 03/23/2016 Overview (04/09/2023): Last Assessment & Plan: Stable on clopidogrel and atorvastatin Last Assessment & Plan: Stable on clopidogrel and atorvastatin Encounters Date Type Department Care Team Description 02/18/2025 External Device Data STL ABSTRACTION Provider, Abstract from Last 3 Months Family History Medical History Relation Name Comments Heart Disease Brother Lung Cancer Brother Diabetes Father Heart Disease Father Kidney Cancer Father Cancer Mother Diabetes Mother Heart Disease Mother Cancer Sister Heart Disease Sister Relation Name Status Comments Brother Daughter Alive Father Mother Sister Social History Tobacco Use Types Packs/Day Years Used Date Smoking Tobacco: Never Tobacco Cessation:Counseling Given: Not Answered Alcohol Use Standard Drinks/Week Comments Never 0 (1 standard drink = 0.6 oz pur e alcohol) Feeling Safe Answer Date Recorded Are you in a relationship wi th someone who hurts you emotionally and/or physically? No 04/10/2023 Food Insecurity Answer Date Recorded Social/Environmental Concerns No concerns Transportation Needs Answer Date Record ed Social/Environmental Concerns No concerns Housing Stability Answer Date Recorded Social/Environmental Concerns No concerns Utility Needs Answer Date Recorded Social/Environmental Concerns No concerns Comments No Sex and Gender Information Value Date Recorded Sex Assigned at Not on file Legal Sex Female 10:09 PM CDT Gender Identity Not on file Sexual Orientation Not on file Last Filed Vital Signs Vital Sign Reading Time Taken Comments Blood Pressure 120/74 05/28/2024 2:45 PM CDT Pulse 62 05/28/2024 2:45 PM CDT Temperature 36.3 C (97.3 F) 05/28/2024 2:45 PM CDT Respiratory Rate 16 05/28/2024 2:45 PM CDT Oxygen Saturation 94% 05/28/2024 2:45 PM CDT Inhaled Oxygen Concentration - - Weight 97.1 kg (214 lb) 05/28/2024 2:45 PM CDT Height 170.2 cm (5' 7) 06/12/2023 9:59 AM CDT Body Mass Index 33.52 06/12/2023 9:59 AM CDT Plan of Treatment Upcoming Encounters Date Type Department Care Team (Late st Contact Info) Description 03/10/2025 4:35 PM CDT Telephone Check Up [facility] Oncology and Hematology - Dougie [address] [facility] [address] [place] [address] Daniel Ram MD [address] [facility] [address] [place] [address] Health Maintenance Due Date Last Done Comments DTAP/TDAP/TD VACCINES (1 - Tdap) 1972 Traditional Medicare (ACO) A nnual Wellness Visit 1972 FIT-DNA Q 3 years 1998 FIT/FOBT Q 1 year 1998 ZOSTER VACCINE (1 of 2) 2003 RSV VACCINE (60+ or ) (1 - Risk 60-74 years 1-dose series) 2013 COVID-19 Vaccine (2023-2 5 season) 2024 10/29/2020, 10/08/2020 BREAST CANCER SCREENING 02/12/2025 02/13/20 24, 02/13/2024, 12/02/2022, Additional history exists INFLUENZA VACCINE (#1) 2025 2, 06/16/2020, 08/07/2019, Additional history exists OSTEOPOROSIS SCREENING 09/05/2028 4, 09/05/2023, 07/05/2021, Additional history exists Flex Sig/CT Colonography Q 5 years 04/14/20292023, 04/14/2024 COLORECTAL SCREENING 04/14/2034 04/14/2024, 04/14/2024, 11/03/2023, Additional history exists Colorectal Cancer Screening 04/14/2034 PNEUMOCOCCAL VACCINE 50+ YEARS Completed 1 08/24/2019, 08/21/2019, 10/31/2018, Additional history exists Insurance MEDICARE PART A AND B [facility] MEDICARE PART A AND B [facility] Advance Directives For more information, please contact: [phone] * NO CPR (In Event of Cardiopulmonary Arrest) (Latest Code Status on File) Date Activated Date Inactivated Comments 04/09/2023 6:57 PM 04/10/2023 6:53 PM Question Answer Comments Mechanical Ventilation (for respiratory distress) - Invasive (i.e. intubation): No Mechanical Ventilation (for respiratory distress) - Non-Invasive (i.e. BiPAP, CPAP): Yes * Full Code Date Activated Date Inactivated Comments 04/09/2023 5:38 PM 04/09/2023 6:57 PM Care Teams Die Set Up Worker Relationship Specialty Start Date End Date Сергей Cunningham MD [address] [place] [phone] PCP - General Internal Medicine 04/01/20
--- OUTSIDE RECORDS SUMMARY | 2025-02-27 15:01 | XMS_ITS | Encounter Summary ---
Author Organization [facility] Facility Care Team Providers Care Salesperson Shoes Name Role Phone Сергей Cunningham MD Primary Care Provider + Reina Mena MD Unavailable [place] Momin MD Unavailable Encounter Details Date Type Department Care Team (Latest Contact Info) Description 05/22/2018 Orders Only [facility] CLINCONV ProviderVicky MD [address] [place], [place] [id number] Social History Tobacco Use Types Packs/Day Years Used Date Smoking Tobacco: Former Comments Unknown Sex and Gender Information Value Date Recorded Sex Assigned at Not on file Legal Sex Female 7:20 PM FREELANCE DIRECTOR Gender Identity Female 08/19/2022 6:55 AM FREELANCE DIRECTOR Sexual Orientation Not on file documented as of this encounter Plan of Treatment Not on file documented as of this encounter Procedures Procedure Name Priority Date/Time Associated Diagnosis Comments CARDIOLOGY REPORT 05/22/2018 12: 00 AM CDT documented in this encounter Results * CARDIOLOGY REPORT (05/22/2018 12:00 AM CDT) Anatomical Region Laterality Modality Other Narrative 05/22/2018 12:00 AM CDT Ordered by an unspecified provider. Historical Provider [facility] Final Result documented in this encounter Visit Diagnoses Not on filedocumented in this encounter Additional Health Concerns Infection Onset Date Last Indicated Resolved Time COVID: Suspected 04/12/2024 04/12/2024 04/12/2024 6:54 PM CDT COVID: Suspected 11/06/2024 11/06/2024 11/06/2024 2:41 PM CDT COVID: Suspected 02/20/2025 02/20/2025 02/20/2025 8:21 AM CDT documented as of this encounter Care Teams Salesperson Shoes Relationship Specialty Start Date End Date Сергей Cunningham MD [address] [place] [address] PCP - General Internal Medicine 01/15/19 Reina Mena MD [address] [address] Consulting Physician Pain Management 10/12/22 [place] [address] [address] Consulting Physician Cardiology 08/04/23 documented as of this encounter
--- OUTSIDE RECORDS SUMMARY | 2025-02-27 15:01 | XMS_ITS ---
Author Organization [facility] Address [address] [address] Care Team Providers Care Drilling Engineering Manager Name Role Phone Javier Momin Unavailable [phone] Social History Sex Assigned At : Social History Observation Description Sex Assigned At Male Encounters Encounter Location Date Provider Diagnosis [facility] [address] [facility] [address] [place] [address] 11/29/2024 Javier Momin Chronic kidney disea se, [...] unspecified R53.82 ; Atherosclerotic heart disease of [place] coronary artery with unspecified angina pectoris I25.119 and CAD (coronary artery disease) I25.10 Assessments Encounter Date Diagnosis (ICD Code) Assessment Notes Treatment Notes Treatment Clinical Notes Section Notes 11/29/2024 Chronic kidney disease, stage 3b (ICD-10 - N18.32) 11/29/2024 Essential (primary) hypertension (ICD-10 - I10) 11/29/2024 Heart failure, unspecified (ICD-10 - I50.9) 11/29/2024 Renal osteodystrophy (ICD-10 - N25.0) 11/29/2024 Retention of urine, unspecified (ICD-10 - R33.9) 11/29/2024 Gastro-esophageal reflux disease without esophagitis (ICD-10 - K21.9) 11/29/2024 Chronic kidney disease, stage 4 (severe) (ICD-10 - N18.4) 11/29/2024 Diverticulosis of large intestine without perforation or abscess without bleeding (ICD-10 - K57.30) 11/29/2024 Low back pain, unspecified (ICD-10 - M54.50) 11/29/2024 Vitamin D deficiency, unspecified (ICD-10 - E55.9) 11/29/2024 Hypothyroidism, unspecified (ICD-10 - E03.9) 11/29/2024 Chronic fatigue, unspecified (ICD-10 - R53.82) 11/29/2024 Atherosclerotic heart disease of [place] coronary artery with unspecified angina pectoris (ICD-10 - I25.119) 11/29/2024 CAD (coronary artery disease) (ICD-10 - I25.10) Plan Of Treatment Next Appt Details Provider Name:Javier Merrill , 03/28/2025 01:45:00 PM, [address], [facility], Progress Notes * LUIS ANGEL DUMASB: 4 (69 yo F)Acc No.[id number]:11/29/2024 Patient: STEPHEN BATRES Provider: Arturo BLACKWELL MD, F.A.C.P, F.A.S.N. :1955 A ge:69 Y S ex:Female Date:11/29/2024 Address:[address] [place] [address] Subjective: * Chief Complaints: Objective: Assessment: * Assessment: 1. C hronic kidney disease, stage 3b - N18.32 (Primary) 2 . E ssential (primary) hypertension - I10 3 . H eart failure, unspecified - I50.9 ?4. R enal osteodystrophy - N25.0 5 . R etention of urine, unspecified - R33.9 6 . G hannah-esophageal reflux disease without esophagitis - K21.9 7 . C hronic kidney disease, stage 4 (severe) - N18.4 8 . D iverticulosis of large intestine without perforation or abscess without bleeding - K57.30 9 . Low back pain, unspecified - M54.50 1 0. V itamin D deficiency, unspecified - E55.9 1 1. H ypothyroidism, unspecified - E03.9 1 2. C hronic fatigue, unspecified - R53.82 1 3. A therosclerotic heart disease of [place] coronary artery with unspecified angina pectoris - I25.119 1 4. C AD (coronary artery disease) - I25.10 Plan: * Billing Information: * Visit Code: 41367 Office Visit, Est Pt., Level 4. * Procedure Codes: * Electronic signature of Austen Momin MD on 02/27/2025 at 03:01 PM CDT Sign off status: Pending * Provider: rAturo BLACKWELL MD, F.A.C.P, F.A.S.N. Date: 0 11/29/2024 Generated for Printing/Faxing/eTransmitting on: 0 02/27/2025 03:01 PM CDT
--- OUTSIDE RECORDS SUMMARY | 2025-02-27 15:01 | XMS_ITS | Encounter Summary ---
Author Organization [facility] Facility Care Team Providers Care Health Consultant Name Role Phone Сергей Cunningham MD Primary Care Provider + Reina Mena MD Unavailable [place] Momin MD Unavailable Encounter Details Date Type Department Care Team (Latest Contact Info) Description 07/11/2017 Orders Only [facility] CLINCONV ProviderVicky MD [address] [place] [id number] Social History Tobacco Use Types Packs/Day Years Used Date Smoking Tobacco: Former Comments Unknown Sex and Gender Information Value Date Recorded Sex Assigned at Not on file Legal Sex Female 7:20 PM BOWLING ALLEY OPERATOR Gender Identity Female 08/19/2022 6:55 AM BOWLING ALLEY OPERATOR Sexual Orientation Not on file documented as of this encounter Plan of Treatment Not on file documented as of this encounter Procedures Procedure Name Priority Date/Time Associated Diagnosis Comments PROCEDURE - RESULT 07/11/2017 12 :00 AM BOWLING ALLEY OPERATOR documented in this encounter Results * PROCEDURE - RESULT (07/11/2017 12:00 AM BOWLING ALLEY OPERATOR) Narrative 07/11/2017 12:00 AM BOWLING ALLEY OPERATOR Ordered by an unspecified provider. us Historical [...] documented as of this encounter Care Teams Health Consultant Relationship Specialty Start Date End Date Сергей Cunningham MD [address] [place] [address] PCP - General Internal Medicine 01/15/19 Reina Mena MD [address] [facility] [address] Consulting Physician Pain Management 10/12/22 [place] [address] [address] Consulting Physician Cardiology 08/04/23 documented as of this encounter
--- OUTSIDE RECORDS SUMMARY | 2025-02-27 15:01 | XMS_ITS | Encounter Summary ---
Author Organization [facility] Facility Care Team Providers Care Corporate Fitness Program Coordinator Name Role Phone Сергей Cunningham MD Primary Care Provider + Reina Mena MD Unavailable [place] Momin MD Unavailable Encounter Details Date Type Department Care Team (Latest Contact Info) Description 07/16/2018 Orders Only [facility] CLINCONV ProviderVicky MD [address] [place], [place] [phone] Social History Tobacco Use Types Packs/Day Years Used Date Smoking Tobacco: Former Comments Unknown Sex and Gender Information Value Date Recorded Sex Assigned at Not on file Legal Sex Female 7:20 PM EVENT SALES MANAGER Gender Identity Female 08/19/2022 6:55 AM EVENT SALES MANAGER Sexual Orientation Not on file documented as of this encounter Plan of Treatment Not on file documented as of this encounter Procedures Procedure Name Priority Date/Time Associated Diagnosis Comments CARDIOLOGY REPORT 07/23/2018 12: 00 AM EVENT SALES MANAGER documented in this encounter Results * CARDIOLOGY REPORT (07/23/2018 12:00 AM EVENT SALES MANAGER) Anatomical Region Laterality Modality Other Narrative 07/23/2018 12:00 AM EVENT SALES MANAGER Ordered by an unspecified provider. us Historical Provider [facility] Final Result documented in this encounter Visit Diagnoses Not on filedocumented in this encounter Additional Health Concerns Infection Onset Date Last Indicated Resolved Time COVID: Suspected 04/12/2024 04/12/202404/1204/12/2024 6:54 PM CDT COVID: Suspected 11/06/2024 11/06/2024 11/06/2024 2:41 PM CDT COVID: Suspected 02/20/2025 02/20/2025 02/20/2025 8:21 AM CDT documented as of this encounter Care Teams Corporate Fitness Program Coordinator Relationship Specialty Start Date End Date Сергей Cunningham MD [address] [place] [address] PCP - General Internal Medicine 01/15/19 Reina Mena MD [address] [facility] [address] Consulting Physician Pain Management 10/12/22 [place] [address] [address] Consulting Physician Cardiology 08/04/23 documented as of this encounter
--- OUTSIDE RECORDS SUMMARY | 2025-02-27 15:01 | XMS_ITS | Encounter Summary ---
Author Organization [facility] Facility Care Team Providers Care Cement Mason Name Role Phone Сергей Cunningham MD Primary Care Provider + Reina Mena MD Unavailable [place] Momin MD Unavailable Encounter Details Date Type Department Care Team (Latest Contact Info) Description 04/18/2018 Orders Only [facility] CLINCONV ProviderVicky MD [address] [place], [place] [phone] Social History Tobacco Use Types Packs/Day Years Used Date Smoking Tobacco: Former Comments Unknown Sex and Gender Information Value Date Recorded Sex Assigned at Not on file Legal Sex Female 7:20 PM EXPERIMENTAL ROCKETSLED MECHANIC Gender Identity Female 08/19/2022 6:55 AM EXPERIMENTAL ROCKETSLED MECHANIC Sexual Orientation Not on file documented as of this encounter Plan of Treatment Not on file documented as of this encounter Procedures Procedure Name Priority Date/Time Associated Diagnosis Comments CARDIOLOGY REPORT 04/18/2018 12: 00 AM CDT documented in this encounter Results * CARDIOLOGY REPORT (04/18/2018 12:00 AM CDT) Anatomical Region Laterality Modality Other Narrative 04/18/2018 12:00 AM CDT Ordered by an unspecified [...] documented as of this encounter Care Teams Cement Mason Relationship Specialty Start Date End Date Сергей Cunningham MD [address] [place] [address] PCP - General Internal Medicine 01/15/19 Reina Mena MD [address] [address] Consulting Physician Pain Management 10/12/22 [place] [address] [address] Consulting Physician Cardiology 08/04/23 documented as of this encounter
--- OUTSIDE RECORDS SUMMARY | 2025-02-27 15:01 | XMS_ITS | Encounter Summary ---
Author Organization [facility] Facility Care Team Providers Care Marksmanship Instructor Name Role Phone Сергей Cunningham MD Primary Care Provider + Renia Mena MD Unavailable [place] Momin MD Unavailable Encounter Details Date Type Department Care Team (Latest Contact Info) Description 07/02/2018 Orders Only [facility] CLINCONV ProviderVicky MD [address] [place], [place] [phone] Social History Tobacco Use Types Packs/Day Years Used Date Smoking Tobacco: Former Comments Unknown Sex and Gender Information Value Date Recorded Sex Assigned at Not on file Legal Sex Female 7:20 PM TRAVELING CLERK Gender Identity Female 08/19/2022 6:55 AM TRAVELING CLERK Sexual Orientation Not on file documented as of this encounter Plan of Treatment Not on file documented as of this encounter Procedures Procedure Name Priority Date/Time Associated Diagnosis Comments CARDIOLOGY REPORT 07/03/2018 12: 00 AM TRAVELING CLERK documented in this encounter Results * CARDIOLOGY REPORT (07/03/2018 12:00 AM TRAVELING CLERK) Anatomical Region Laterality Modality Other Narrative 07/03/2018 12:00 AM TRAVELING CLERK Ordered by an unspecified provider. us Historical [...] documented as of this encounter Care Teams Marksmanship Instructor Relationship Specialty Start Date End Date Сергей Cunningham MD [address] [place] [address] PCP - General Internal Medicine 01/15/19 Reina Mena MD [address] [facility] [address] Consulting Physician Pain Management 10/12/22 [place] [address] [address] Consulting Physician Cardiology 08/04/23 documented as of this encounter
--- OUTSIDE RECORDS SUMMARY | 2025-02-27 15:01 | XMS_ITS ---
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) Active confirmed Problem Coronary artery disease (43628732) CAD (coronary artery disease) (I25.10) Active confirmed Encounters Encounter Location Date Provider Diagnosis [place] [address] [facility] [address] [place] [address] 10/18/2024 Javier Momin Chronic kidney disea se, stage 3b N18.32 ; Renal osteodystrophy N25.0 ; Chronic fatigue, unspecified R53.82 ; Atherosclerotic heart disease of knik coronary artery with unspecified angina pectoris I25.119 [...] deficiency, unspecified E55.9 and Hypothyroidism, unspecified E03.9 Assessments Encounter Date Diagnosis (ICD Code) Assessment Notes Treatment Notes Treatment Clinical Notes Section Notes 10/18/2024 Chronic kidney disease, stage 3b (ICD-10 - N18.32) 10/18/2024 Renal osteodystrophy (ICD-10 - N25.0) 10/18/2024 Chronic fatigue, unspecified (ICD-10 - R53.82) 10/18/2024 Atherosclerotic heart disease of knik coronary artery with unspecified angina pectoris (ICD-10 - I25.119) 10/18/2024 CAD (coronary artery disease) (ICD-10 - I25.10) 10/18/2024 Essential (primary) hypertension (ICD-10 - I10) 10/18/2024 Heart failure, unspecified (ICD-10 - I50.9) 10/18/2024 Retention of urine, unspecified (ICD-10 - R33.9) 10/18/2024 Gastro-esophageal reflux disease without esophagitis (ICD-10 - K21.9) 10/18/2024 Chronic kidney disease, stage 4 (severe) (ICD-10 - N18.4) 10/18/2024 Diverticulosis of large intestine without perforation or abscess without bleeding (ICD-10 - K57.30) 10/18/2024 Low back pain, unspecified (ICD-10 - M54.50) 10/18/2024 Vitamin D deficiency, unspecified (ICD-10 - E55.9) 10/18/2024 Hypothyroidism, unspecified (ICD-10 - E03.9) Plan Of Treatment Next Appt Details Provider Name:Javier Momin , 03/28/2025 01:45:00 PM, [address], [address], Progress Notes * PITERLUIS ANGELB: 4 (69 yo F)Acc No.[id number]:10/18/2024 Progress Notes Patient: STEPHEN BATRES Provider: Arturo BLACKWELL MD, F.A.C.P, F.A.S.N. :1955 A ge:69 Y S ex:Female Date:10/18/2024 Address:[address] [place] [address] Subjective: * Chief Complaints: * * Medical History: Objective: * Vitals: Assessment: * Assessment: 1. C hronic kidney disease, stage 3b - N18.32 (Primary) 2 . R enal osteodystrophy - N25.0 3 . C hronic fatigue, unspecified - R53.82 4 .?Atherosclerotic heart disease of knik coronary artery with unspecified angina pectoris - I25.119 5 . C AD (coronary artery disease) - I25.10 6 . E ssential (primary) hypertension - I10 7 . H eart failure, unspecified - I50.9 8 . R etention of urine, unspecified - R33.9 9 . G hannah-esophageal reflux disease without esophagitis - K21.9 1 0. C hronic kidney disease, stage 4 (severe) - N18.4 1 1. D iverticulosis of large intestine without perforation or abscess without bleeding - K57.30 1 2. L ow back pain, unspecified - M54.50 & #160; 1 3. V itamin D deficiency, unspecified - E55.9 1 4. H ypothyroidism, unspecified - E03.9 Plan: * Treatment: * Billing Information: * Visit Code: 85516 Office Visit, Est Pt., Level 4. * Procedure Codes: * Electronic signature of Austen Momin MD on 02/27/2025 at 03:01 PM CDT Sign off status: Pending * Provider: Arturo BLACKWELL MD, F.A.C.P, F.A.S.N. Date: 0 10/18/2024 Generated for Printing/Faxing/eTransmitting on: 0 02/27/2025 03:01 PM CDT
--- OUTSIDE RECORDS SUMMARY | 2025-02-27 15:01 | XMS_ITS | Clinical Summary ---
Author Organization [facility] Care Team Providers Care Pressure Welder Name Role Phone Unavailable Primary Care Provider Unavailabl e Social History Tobacco Use Types Packs/Day Years Used Date Smoking Tobacco: Never Assessed Comments Unknown Sex and Gender Information Value Date Recorded Sex Assigned at Not on file Legal Sex Female 2:44 PM PATTERN MOLDER Gender Identity Not on file Sexual Orientation Not on file Plan of Treatment Health Maintenance Due Date Last Done Comments DEXA Bone Density 1955 Hepatitis C Virus (HCV) Screening 1955 TdaP Immunization 1955 Colonoscopy 1998 Colorectal Cancer Screening 1998 Cologuard 2003 Immunochemical Fecal Occult Blood 2003 Mammogram 2003 Pneumococcal Immunization (5 0+ years) (1 of 1 - PCV) 2003 Zoster Immunization (1 of 2) 2003 Influenza Immunization (#1) 04/21/202405/22, 08/07/2019, 07/17/2018 SARS-COV-2 Immunization ( season) 2024 10/29/2020, 10/08/2020 Respiratory Syncytial Virus (RSV) Immunization (Adult) (1 - 1-dose 75+ series) 2028 Hepatitis B Immunization Aged Out No longer eligible based on patient's age to complete this topic Meningococcal Immunization (ACWY) Aged Out No longer eligible b ased on patient's age to complete this topic Rotavirus Immunization Aged Out No lo nger eligible based on patient's age to complete this topic
--- OUTSIDE RECORDS SUMMARY | 2025-02-27 15:01 | XMS_ITS | Encounter Summary ---
Author Organization [facility] Care Team Providers Care Cobbler Apprentice Name Role Phone Сергей Cunningham MD Primary Care Provider + Reina Mena MD Unavailable Pedro Momin MD Unavailable Encounter Details Date Type Department Care Team (Latest Contact Info) Description 09/20/2017 Orders Only [facility] ProviderVicky MD [address] [place], [place] [id number] Social History Tobacco Use Types Packs/Day Years Used Date Smoking Tobacco: Former Comments Unknown Sex and Gender Information Value Date Recorded Sex Assigned at Not on file Legal Sex Female 7:20 PM BOARD SAW RUNNER Gender Identity Female 08/19/2022 6:55 AM BOARD SAW RUNNER Sexual Orientation Not on file documented as of this encounter Plan of Treatment Not on file documented as of this encounter Procedures Procedure Name Priority Date/Time Associated Diagnosis Comments COLONOSCOPY - SCAN 09/20/2017 12 :00 AM BOARD SAW RUNNER documented in this encounter Results * COLONOSCOPY - SCAN (09/20/2017 12:00 AM BOARD SAW RUNNER) Narrative 09/20/2017 12:00 AM BOARD SAW RUNNER Ordered by an unspecified provider. us Historical [...] documented as of this encounter Care Teams Cobbler Apprentice Relationship Specialty Start Date End Date Сергей Cunningham MD [address] [place] [address] PCP - General Internal Medicine 01/15/19 Reina Mena MD [address] [facility] [address] Consulting Physician Pain Management 10/12/22 [place] [id number] [address] Consulting Physician Cardiology 08/04/23 documented as of this encounter
--- OUTSIDE RECORDS SUMMARY | 2025-02-27 15:02 | XMS_ITS | Encounter Summary ---
Author Organization [facility] Address [address] [place] [address] Care Team Providers Care Lead Shop Operator Name Role Phone Сергей Cunningham MD Primary Care Provider + Reina Mena MD Unavailable Pedro Momin MD Unavailable Encounter Details Date Type Department Care Team (Late st Contact Info) Description 02/01/2023 Telephone [facility] Pain [facility] [address] [address] Mary Narayanan, DONOVAN Social History Tobacco Use Types Packs/Day Years Used Date Smoking Tobacco: Former Cigarettes Q uit: 1984 Smokeless Tobacco: Never Alcohol Use Standard Drinks/Week Comments Never 0 (1 standard drink = 0.6 oz pur e alcohol) AUDIT-C Answer Date Recorded Q1: How often do you have a drink containing alcohol? Never 10/25/2022 Q2: How many drinks containi ng alcohol do you have on a typical day when you are drinking? Patient does not drink Q3: How often do you have si x or more drinks on one occasion? Never 10/25/2022 PHQ-2 Answer Date Recorded PHQ-2 Total Score 0 08/25/2022 Comments No Sex and Gender Information Value Date Recorded Sex Assigned at Not on file Legal Sex Female 7:20 PM STEEL DIE PRINTER Gender Identity Female 08/19/2022 6:55 AM STEEL DIE PRINTER Sexual Orientation Not on file documented as [...] documented as of this encounter Care Teams Lead Shop Operator Relationship Specialty Start Date End Date Сергей Cunningham MD [address] [place] [address] PCP - General Internal Medicine 01/15/19 Reina Mena MD [address] [address] Consulting Physician Pain Management 10/12/22 [place] [id number] [address] Consulting Physician Cardiology 08/04/23 documented as of this encounter
--- OUTSIDE RECORDS SUMMARY | 2025-02-27 15:02 | XMS_ITS ---
Author Organization [facility] [address] [facility] ricardo Address [address] [place] [address] Care Team Providers Care Mammography Technician Name Role Phone Сергей Cunningham MD Primary Care Provider + Reina Mena MD Unavailable Pedro Momin MD Unavailable Active Problems Problem Noted Date Diagnosed Date Contusion of left knee 02/17/2025 Assessment & Plan (02/17/2025 4:06 PM CDT): S/p fall in the yard 3 d ago landing on L knee. Will check xray Acute left-sided thoracic back pain 02/17/2025 Assessment & Plan (02/17/2025 4:07 PM CDT): S/p fall in the yard 3 d ago. Will check xray. Pain in rib 02/17/2025 Assessment & Plan (02/17/2025 4:07 PM CDT): Bilat anterior. S/p fall in the yard 3 d ago. Will check xray Chronic kidney disease, stage 4 (severe) 025 Assessment & Plan (10/03/2024 2:34 PM CENTRAL OFFICE REPAIRER): Stable on losartan. Follows with Dr. Merrill SANTIAGO 03/13/2024 Assessment & Plan (03/13/2024 8:42 AM CDT): Will look into studies at [facility] Iron deficiency anemia due to chronic blood loss 08/23/2023 Assessment & Plan (10/01/2024 7:12 AM CENTRAL OFFICE REPAIRER): Stable on iron daily. Follows with Hematology. Assessment & Plan (08/23/2023 7:00 AM CENTRAL OFFICE REPAIRER): Stable on iron daily. Follows with Hematology. Basal cell carcinoma of lower eyelid, left 08/03 Hordeolum externum left lower eyelid 07/10/2023 Assessment & Plan (07/10/2023 4:06 PM CENTRAL OFFICE REPAIRER): Improving on its own. Okay to observe to resolution. Thoracic spondylosis 01/19/2023 Spondylosis of lumbar region without myelopathy or radiculopathy 01/19/2023 Muscle strain 08/25/2022 Assessment & Plan (08/25/2022 2:59 PM CENTRAL OFFICE REPAIRER): Multiple sites after falling on August 16. No fractures. Patient still has lumbar pain with right-sided sciatica. Will try prednisone taper. Madison and cyclobenzaprine prescribed in ER did not help pain at all, will stop that. Multiple thyroid nodules 08/25/2022 Assessment & Plan (10/01/2024 7:12 AM CENTRAL OFFICE REPAIRER): Stable. Follows with Dr. Canela Assessment & Plan (08/23/2023 6:55 AM CENTRAL OFFICE REPAIRER): Due for repeat thyroid ultrasound Assessment & Plan (02/13/2023 7:21 AM CDT): Due for repeat thyroid ultrasound in August 2023 Assessment & Plan (08/25/2022 1:57 PM CENTRAL OFFICE REPAIRER): Incidental finding on neck CT that was done due to fall and neck pain. Bilateral thyroid nodules, up to 1.3 cm on left side. Will order thyroid ultrasound to f/u. Lumbar pain 01/24/2022 Assessment & Plan (02/17/2025 4:11 PM CDT): Acute on chronic. S/p fall in the yard 3 d ago. Will check xray. Patient is taking Tylenol No. 4, 2 tablets 3 times a day without any relief. Will temporary switch it to Madison 5/325 1 tablet every 6 hours. Do not take Tylenol No. 4 while on Madison. Will check lumbar x-ray. Patient currently has an active prescription for opioid medication. I reviewed patient's use of this medication, risk for Opioid Use Disorder, and potential benefit of other non-opioid pain therapies. Discussed with patient that opiates use can lead to dependency and and abuse. Discussed side effects of nausea, constipation, dizziness, drowsiness, sedation, respiratory depression and . Offered a prescription for Narcan. Assessment & Plan (10/01/2024 7:11 AM CENTRAL OFFICE REPAIRER): Stable on Tylenol No. 4 and gabapentin. Assessment & Plan (03/12/2024 8:09 AM CDT): Stable on Tylenol No. 4 and gabapentin. Assessment & Plan (02/13/2023 7:20 AM CDT): Stable on Tylenol No. 4 and gabapentin. Assessment & Plan (08/01/2022 8:32 AM CENTRAL OFFICE REPAIRER): Stable on Tylenol No. 4 and gabapentin. Had recent SI joint injection, but they are not lasting very long. Assessment & Plan (05/05/2022 9:29 AM CDT): Stable with Tylenol No. 4 and gabapentin. Continue pain management injections. Due for urine drug screening test. Not due for Tylenol No. 4 refill at this point. Will be due around May 26. Assessment & Plan (01/24/2022 8:52 AM CDT): Stable with Tylenol 4 the gabapentin Right hemiparesis 06/24/2020 Assessment & Plan (10/01/2024 7:11 AM CENTRAL OFFICE REPAIRER): Residual weakness secondary to CVA. Stable. Assessment & Plan (03/12/2024 8:09 AM CDT): Residual weakness secondary to CVA. Stable. Assessment & Plan (08/23/2023 6:55 AM CENTRAL OFFICE REPAIRER): Residual weakness secondary to CVA. Stable. Assessment & Plan (02/13/2023 7:20 AM CDT): Residual weakness secondary to CVA. Stable. Assessment & Plan (07/28/2022 12:19 PM CENTRAL OFFICE REPAIRER): Residual weakness secondary to CVA. Stable. Assessment & Plan (01/20/2022 8:41 AM CDT): Residual weakness secondary to CVA. Assessment & Plan (07/08/2021 1:03 PM CENTRAL OFFICE REPAIRER): Residual weakness secondary to CVA. Assessment & Plan (01/04/2021 1:13 PM CDT): Residual weakness secondary to CVA. Has a right footdrop. Assessment & Plan (06/24/2020 10:36 AM CENTRAL OFFICE REPAIRER): Residual weakness secondary to CVA. Has right foot drop. Right foot drop 06/24/2020 Assessment & Plan (10/01/2024 7:11 AM CENTRAL OFFICE REPAIRER): Stable. Requires an AFO to ambulate. Assessment & Plan (03/12/2024 8:09 AM CDT): Stable. Requires an AFO to ambulate. Assessment & Plan (08/23/2023 6:55 AM CENTRAL OFFICE REPAIRER): Stable. Requires an AFO to ambulate. Assessment & Plan (02/13/2023 7:21 AM CDT): Stable. Requires an AFO to ambulate. Assessment & Plan (07/28/2022 12:19 PM CENTRAL OFFICE REPAIRER): Stable. Requires an AFO to ambulate. Assessment & Plan (01/20/2022 8:40 AM CDT): Stable. Required AFO to ambulate Assessment & Plan (07/08/2021 1:03 PM CENTRAL OFFICE REPAIRER): Stable. Requires AFO to ambulate Assessment & Plan (01/04/2021 1:14 PM CDT): Stable. Requires AFO to ambulate Assessment & Plan (06/24/2020 10:36 AM CENTRAL OFFICE REPAIRER): We will order an AFO to help prevent falls. Cervicalgia 06/24/2020 Assessment & Plan (03/09/2021 3:29 PM CDT): New onset 3 days ago. No history of falling. Patient is on Tylenol No. 4 q.i.d. and gabapentin 300 mg t.i.d. due to chronic low back pain, continue that. Will add short-term muscle relaxer. Continue icing/heating pad, Voltaren cream prn. Assessment & Plan (06/24/2020 10:43 AM CENTRAL OFFICE REPAIRER): Pain worse secondary to falls. Will check MRI to rule out compression fracture or herniated disc. Encounter for Medicare annual wellness exam 10/2019 Depression screening 06/23/2020 Assessment & Plan (03/12/2024 8:10 AM CDT): Negative for depression Assessment & Plan (02/13/2023 7:22 AM CDT): Negative for depression Assessment & Plan (01/20/2022 8:41 AM CDT): Negative for depression Assessment & Plan (06/23/2020 12:34 PM CENTRAL OFFICE REPAIRER): Negative for depression Risk for falls 06/23/2020 Assessment & Plan (03/12/2024 8:10 AM CDT): Moderate risk for fall fall secondary to hemiparesis right footdrop Assessment & Plan (02/13/2023 7:22 AM CDT): Moderate risk for fall fall secondary to hemiparesis right footdrop Assessment & Plan (01/24/2022 8:51 AM CDT): Moderate risk for fall fall secondary to hemiparesis right footdrop Assessment & Plan (06/24/2020 10:38 AM CENTRAL OFFICE REPAIRER): High risk for falls secondary to right foot drop Osteopenia of neck of femur 12/18/2019 Overview (12/18/2019): Last bone density was done in June of 2019. She was started on Fosamax at that time. Assessment & Plan (10/01/2024 7:11 AM CENTRAL OFFICE REPAIRER): Bone density was worse on DEXA in June of 2023. Continue calcium plus vitamin-D. Assessment & Plan (03/12/2024 8:09 AM CDT): Bone density was worse on DEXA in June of 2023. Continue calcium plus vitamin-D. Assessment & Plan (08/23/2023 6:54 AM CENTRAL OFFICE REPAIRER): Bone density improved on July 05, 2021. Continue calcium plus vitamin-D. Assessment & Plan (02/13/2023 7:19 AM CDT): Bone density improved on July 05, 2021. Continue calcium plus vitamin-D. Assessment & Plan (01/20/2022 8:40 AM CDT): Bone density improved on July 05, 2021. Continue calcium plus vitamin-D Assessment & Plan (07/12/2021 8:56 AM CENTRAL OFFICE REPAIRER): Bone density was improved on a July 05, 2021. Continue calcium plus vitamin- D. Assessment & Plan (01/06/2021 3:04 PM CDT): Continue calcium plus vitamin-D. Due for repeat bone density in June of 2021. Stop alendronate secondary to side effects. Assessment & Plan (06/23/2020 12:34 PM CENTRAL OFFICE REPAIRER): Stable on alendronate and calcium plus vitamin-D. Will due for repeat bone density in June 2021 Assessment & Plan (12/18/2019 9:31 AM CDT): Continue alendronate and calcium plus vitamin-D. Will be due for repeat bone density in June of 2021 Aspirin allergy 12/16/2019 Assessment & Plan (10/01/2024 7:11 AM CENTRAL OFFICE REPAIRER): Patient gets anaphylaxis from aspirin. Assessment & Plan (03/12/2024 8:10 AM CDT): Patient gets anaphylaxis from aspirin. Assessment & Plan (08/23/2023 6:54 AM CENTRAL OFFICE REPAIRER): Patient gets anaphylaxis from aspirin. Assessment & Plan (06/23/2020 12:33 PM CENTRAL OFFICE REPAIRER): Patient gets anaphylaxis from aspirin. Assessment & Plan (12/16/2019 8:34 AM CDT): Patient gets anaphylaxis from aspirin. Chronic stable angina 05/07/2019 Assessment & Plan (10/01/2024 7:11 AM CENTRAL OFFICE REPAIRER): Stable on isosorbide and Ranexa Assessment & Plan (03/12/2024 8:07 AM CDT): Stable on isosorbide and Ranexa Assessment & Plan (08/23/2023 6:54 AM CENTRAL OFFICE REPAIRER): Stable on isosorbide and Ranexa Assessment & Plan (02/13/2023 7:19 AM CDT): Stable on isosorbide and Ranexa Assessment & Plan (07/28/2022 12:20 PM CENTRAL OFFICE REPAIRER): Stable on isosorbide and Ranexa Assessment & Plan (01/20/2022 8:39 AM CDT): Stable on isosorbide and Ranexa Assessment & Plan (07/08/2021 1:03 PM CENTRAL OFFICE REPAIRER): Stable on isosorbide and Ranexa Assessment & Plan (01/04/2021 1:12 PM CDT): Stable on isosorbide and Ranexa Assessment & Plan (06/23/2020 12:31 PM CENTRAL OFFICE REPAIRER): Stable on isosorbide and Ranexa Assessment & Plan (12/16/2019 8:37 AM CDT): Stable on isosorbide and Ranexa Assessment & Plan (06/13/2019 3:35 PM CDT): Continue isosorbide and nitroglycerin as needed. Hypertensive heart and kidne y disease without heart failure and with chronic kidney disease stage IV 10/31/2018 Assessment & Plan (10/01/2024 7:10 AM CENTRAL OFFICE REPAIRER): Well controlled on amlodipine, clonidine, and guanfacine Assessment & Plan (03/13/2024 8:32 AM CDT): Well controlled on amlodipine, clonidine, and guanfacine Assessment & Plan (08/23/2023 6:53 AM CENTRAL OFFICE REPAIRER): Well controlled on chlorthalidone, amlodipine, clonidine, and guanfacine Assessment & Plan (02/13/2023 7:17 AM CDT): Well controlled on chlorthalidone, amlodipine, clonidine, and guanfacine Assessment & Plan (07/28/2022 12:17 PM CENTRAL OFFICE REPAIRER): Well controlled on chlorthalidone, amlodipine, clonidine, and guanfacine Assessment & Plan (01/20/2022 8:37 AM CDT): Well controlled on chlorthalidone, amlodipine, clonidine, and guanfacine. Assessment & Plan (07/12/2021 9:13 AM CENTRAL OFFICE REPAIRER): Well controlled on chlorthalidone, amlodipine, clonidine, and guanfacine. Spironolactone and isosorbide on hold. Assessment & Plan (01/04/2021 1:11 PM CDT): Well controlled onWell controlled on spironolactone, chlorthalidone, amlodipine, clonidine, and guanfacine Assessment & Plan (06/23/2020 12:30 PM CENTRAL OFFICE REPAIRER): Well controlled. Continue spironolactone, chlorthalidone, amlodipine, clonidine, furosemide, and guanfacine Assessment & Plan (12/16/2019 8:33 AM CDT): Well controlled. Continue spironolactone, chlorthalidone, amlodipine, clonidine, furosemide, and guanfacine Assessment & Plan (06/13/2019 3:32 PM CDT): Well controlled. Continue spironolactone, chlorthalidone, amlodipine, clonidine, furosemide, guanfacine. 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 Circumflex has 25% stenosis. RCA has proximal 30% followed was on 5% stenosis. Distally it has a 30% and 60% les Assessment & Plan (10/01/2024 7:10 AM CENTRAL OFFICE REPAIRER): Stable on atorvastatin and clopidogrel. Not on aspirin secondary to aspirin allergy Assessment & Plan (03/12/2024 8:06 AM CDT): Stable on atorvastatin and clopidogrel. Not on aspirin secondary to aspirin allergy Assessment & Plan (08/23/2023 6:53 AM CENTRAL OFFICE REPAIRER): Stable on atorvastatin and clopidogrel. Not on aspirin secondary to aspirin allergy Assessment & Plan (02/13/2023 7:17 AM CDT): Stable on atorvastatin and clopidogrel. Not on aspirin secondary to aspirin allergy Assessment & Plan (07/28/2022 12:20 PM CENTRAL OFFICE REPAIRER): Stable on atorvastatin and clopidogrel. Not on aspirin secondary to aspirin allergy Assessment & Plan (01/20/2022 8:38 AM CDT): Stable on atorvastatin and clopidogrel. Not on aspirin secondary to aspirin allergy. Assessment & Plan (07/08/2021 12:59 PM CENTRAL OFFICE REPAIRER): Stable on atorvastatin and clopidogrel. Not on aspirin secondary to aspirin allergy Assessment & Plan (01/04/2021 1:11 PM CDT): Stable on atorvastatin and clopidogrel. Not on aspirin secondary to aspirin allergy. Assessment & Plan (06/23/2020 12:30 PM CENTRAL OFFICE REPAIRER): Stable. Continue isosorbide, nitroglycerin, Ranexa, and atorvastatin. Patient has allergy to aspirin and does not tolerate beta-rosales secondary to her asthma. She follows with Dr. Garrison. Assessment & Plan (12/16/2019 8:34 AM CDT): Stable. Patient follows with Dr. Garrison. Continue isosorbide, nitroglycerin, Ranexa, and atorvastatin. Patient has an allergy to aspirin. Assessment & Plan (06/14/2019 9:06 AM CDT): Stable. Patient sees Dr. Garrison, his checking lipid panel and liver function. Pain continue isosorbide, nitroglycerin, ranexa and atorvastatin.. History of coronary artery stent placement 08/15 Overview (05/07/2019): Patient had stent placement in the mid LAD and also proximal to mid RCA on 07/16/2018 Assessment & Plan (12/16/2019 8:37 AM CDT): Stable on clopidogrel Chronic constipation 04/18/2018 Assessment & Plan (08/23/2023 6:56 AM CENTRAL OFFICE REPAIRER): Stable on Linzess Assessment & Plan (02/13/2023 7:19 AM CDT): Stable on Linzess Assessment & Plan (07/28/2022 12:20 PM CENTRAL OFFICE REPAIRER): Stable on Linzess Assessment & Plan (01/20/2022 8:39 AM CDT): Stable on Linzess Assessment & Plan (07/12/2021 9:11 AM CENTRAL OFFICE REPAIRER): Stable on linzess and docusate sodium. Class 1 obesity due to exces s calories with serious comorbidity and body mass index (BMI) of 30.0 to 30.9 in adult 04/18/2018 Assessment & Plan (10/01/2024 7:12 AM CENTRAL OFFICE REPAIRER): BMI Follow-up includes: exercise counseling. Assessment & Plan (03/12/2024 8:09 AM CDT): BMI Follow-up includes: exercise counseling. Assessment & Plan (08/23/2023 6:54 AM CENTRAL OFFICE REPAIRER): BMI Follow-up includes: exercise counseling. Assessment & Plan (02/13/2023 7:19 AM CDT): BMI Follow-up includes: exercise counseling. Assessment & Plan (07/28/2022 12:19 PM CENTRAL OFFICE REPAIRER): BMI Follow-up includes: exercise counseling. Assessment & Plan (01/20/2022 8:39 AM CDT): BMI Follow-up includes: exercise counseling. Assessment & Plan (07/08/2021 1:03 PM CENTRAL OFFICE REPAIRER): BMI Follow-up includes: exercise counseling. Assessment & Plan (01/04/2021 1:14 PM CDT): BMI Follow-up includes: exercise counseling. Assessment & Plan (06/23/2020 12:33 PM CENTRAL OFFICE REPAIRER): BMI Follow-up includes: exercise counseling. Pure hypercholesterolemia 10/04/2016 Assessment & Plan (10/01/2024 7:10 AM CENTRAL OFFICE REPAIRER): Stable on atorvastatin Assessment & Plan (03/12/2024 8:06 AM CDT): Stable on atorvastatin Assessment & Plan (08/23/2023 6:53 AM CENTRAL OFFICE REPAIRER): Stable on atorvastatin Assessment & Plan (02/13/2023 7:18 AM CDT): Stable on atorvastatin Assessment & Plan (07/28/2022 12:17 PM CENTRAL OFFICE REPAIRER): Stable on atorvastatin Assessment & Plan (01/20/2022 8:38 AM CDT): Stable on atorvastatin Assessment & Plan (07/08/2021 12:59 PM CENTRAL OFFICE REPAIRER): Stable on atorvastatin Assessment & Plan (01/04/2021 1:11 PM CDT): Stable on atorvastatin Assessment & Plan (06/23/2020 12:31 PM CENTRAL OFFICE REPAIRER): Stable on atorvastatin Assessment & Plan (12/16/2019 8:35 AM CDT): Stable on atorvastatin Assessment & Plan (06/13/2019 3:40 PM CDT): Well controlled on atorvastatin. Dr. Garrison checks lipids GERD (gastroesophageal reflux disease) 6 Assessment & Plan (10/01/2024 7:11 AM CENTRAL OFFICE REPAIRER): Stable on pantoprazole Assessment & Plan (03/12/2024 8:07 AM CDT): Stable on pantoprazole Assessment & Plan (08/23/2023 6:54 AM CENTRAL OFFICE REPAIRER): Stable on pantoprazole Assessment & Plan (02/13/2023 7:18 AM CDT): Stable on pantoprazole Assessment & Plan (07/28/2022 12:18 PM CENTRAL OFFICE REPAIRER): Stable on pantoprazole Assessment & Plan (01/20/2022 8:39 AM CDT): Stable on pantoprazole Assessment & Plan (07/08/2021 1:02 PM CENTRAL OFFICE REPAIRER): Stable on pantoprazole Assessment & Plan (01/04/2021 1:13 PM CDT): Stable on pantoprazole Assessment & Plan (06/23/2020 12:33 PM CENTRAL OFFICE REPAIRER): Stable on pantoprazole Assessment & Plan (12/16/2019 8:37 AM CDT): Stable on pantoprazole Assessment & Plan (06/13/2019 3:44 PM CDT): Stable, continue pantoprazole. Mild intermittent asthma with acute exacerbation 03/23/2016 Assessment & Plan (11/06/2024 2:39 PM CDT): With exacerbation. Continue albuterol HFA and albuterol nebulizer. Will do a prednisone taper Assessment & Plan (10/01/2024 7:10 AM CENTRAL OFFICE REPAIRER): Stable. Continue albuterol HFA and albuterol nebulizer Assessment & Plan (03/12/2024 8:06 AM CDT): Stable. Continue albuterol HFA and albuterol nebulizer Assessment & Plan (08/23/2023 6:53 AM CENTRAL OFFICE REPAIRER): Stable. Continue albuterol HFA and albuterol nebulizer Assessment & Plan (02/13/2023 7:18 AM CDT): Stable. Continue albuterol HFA and albuterol nebulizer Assessment & Plan (07/28/2022 12:18 PM CENTRAL OFFICE REPAIRER): Stable. Continue albuterol HFA and albuterol nebulizer Assessment & Plan (01/20/2022 8:38 AM CDT): Stable. Continue albuterol HFA and albuterol nebulized Assessment & Plan (07/08/2021 1:01 PM CENTRAL OFFICE REPAIRER): Stable. Continue albuterol HFA and albuterol nebulizer. Assessment & Plan (01/04/2021 1:12 PM CDT): Stable. Continue albuterol HFA and albuterol nebulizer Assessment & Plan (06/23/2020 12:32 PM CENTRAL OFFICE REPAIRER): Stable. Continue albuterol HFA p.r.n. and albuterol nebulizer. Assessment & Plan (12/16/2019 8:35 AM CDT): Stable. Continue a albuterol HFA p.r.n. and nebulizer p.r.n. Assessment & Plan (06/13/2019 3:43 PM CDT): Stable. Continue albuterol inhaler and nebulizer as needed. History of CVA with residual deficit 03/23/2016 Assessment & Plan (10/01/2024 7:10 AM CENTRAL OFFICE REPAIRER): Stable on clopidogrel and atorvastatin Assessment & Plan (03/12/2024 8:06 AM CDT): Stable on clopidogrel and atorvastatin Assessment & Plan (08/23/2023 6:54 AM CENTRAL OFFICE REPAIRER): Stable on clopidogrel and atorvastatin Assessment & Plan (02/13/2023 7:18 AM CDT): Stable on clopidogrel and atorvastatin Assessment & Plan (07/28/2022 12:18 PM CENTRAL OFFICE REPAIRER): Stable on clopidogrel and atorvastatin Assessment & Plan (01/20/2022 8:38 AM CDT): Stable on clopidogrel and atorvastatin Assessment & Plan (07/08/2021 1:01 PM CENTRAL OFFICE REPAIRER): Stable on clopidogrel and atorvastatin Assessment & Plan (01/04/2021 1:12 PM CDT): Stable on clopidogrel and atorvastatin Assessment & Plan (06/23/2020 12:31 PM CENTRAL OFFICE REPAIRER): Stable on clopidogrel and atorvastatin Assessment & Plan (12/16/2019 8:35 AM CDT): Stable on clopidogrel and atorvastatin. Assessment & Plan (06/14/2019 9:19 AM CDT): With expressive aphasia. Stable. Continue clopidogrel, atorvastatin. Expressive aphasia 03/23/2016 Assessment & Plan (10/01/2024 7:11 AM CENTRAL OFFICE REPAIRER): Stable Assessment & Plan (03/12/2024 8:06 AM CDT): Stable Assessment & Plan (08/23/2023 6:54 AM CENTRAL OFFICE REPAIRER): Stable Assessment & Plan (02/13/2023 7:18 AM CDT): Stable Assessment & Plan (07/28/2022 12:18 PM CENTRAL OFFICE REPAIRER): Stable Assessment & Plan (01/20/2022 8:39 AM CDT): Stable Assessment & Plan (07/08/2021 1:01 PM CENTRAL OFFICE REPAIRER): Stable Assessment & Plan (01/04/2021 1:12 PM CDT): Stable Assessment & Plan (06/23/2020 12:32 PM CENTRAL OFFICE REPAIRER): Stable Assessment & Plan (12/16/2019 8:36 AM CDT): Stable Assessment & Plan (06/14/2019 1:49 PM CDT): Stable Seizure disorder 03/23/2016 Assessment & Plan (10/01/2024 7:11 AM CENTRAL OFFICE REPAIRER): Stable on Keppra Assessment & Plan (03/12/2024 8:06 AM CDT): Stable on Keppra Assessment & Plan (08/23/2023 6:54 AM CENTRAL OFFICE REPAIRER): Stable on Keppra Assessment & Plan (02/13/2023 7:18 AM CDT): Stable on Keppra Assessment & Plan (07/28/2022 12:18 PM CENTRAL OFFICE REPAIRER): Stable on Keppra Assessment & Plan (01/20/2022 8:39 AM CDT): Stable on Keppra Assessment & Plan (07/12/2021 9:13 AM CENTRAL OFFICE REPAIRER): Keppra currently on hold Assessment & Plan (01/04/2021 1:13 PM CDT): Stable on Keppra Assessment & Plan (06/23/2020 12:31 PM CENTRAL OFFICE REPAIRER): Stable on Keppra Assessment & Plan (12/16/2019 8:36 AM CDT): Stable on Keppra. Assessment & Plan (06/14/2019 9:02 AM CDT): Stable, continue Keppra. Pt takes it as precautionary treatment after stroke. Doesn't see neurologist anymore. Current Treatment and Therapy Plans No current plan information found. Past Treatment and Therapy Plans No past plan information found. Lifetime Dose Tracking * Chemical Lifetime Dose Automatic Entry Manual Entr y Fluoro Time 5.2 minutes 5.2 minutes 0 minutes Air kerma at the reference point (Ka,r) 287.4 mGy 2 87.4 mGy 0 mGy Resolved Problems Problem Noted Date Diagnosed Date Resolved Date Abdominal pain 04/13/2024 09/16/2024 Nausea and vomiting 04/12/2024 09/16/19 25 Fall 04/09/2023 08/23/2023 Acute non-recurrent maxillary sinusitis 03/08/2023 08/23/2023 Assessment & Plan (07/10/2023 4:01 PM CENTRAL OFFICE REPAIRER): Mostly sinus congestion. Pt had anaphylactic reaction to PCN, erythromycin and doxy. I didn't consider antibiotic as there is no significant danger from not using antibiotics. Will try prednisone taper to improve congestion, also can try claritin 10 mg as needed. Assessment & Plan (03/08/2023 8:32 AM CDT): Mostly sinus congestion. Pt had anaphylactic reaction to PCN, erythromycin and doxy. I didn't consider antibiotic as there is no significant danger from not using antibiotics. Will try prednisone taper to improve congestion, also can try claritin 10 mg as needed. Viral upper respiratory infection 08/25/2022 02/13/2023 Assessment & Plan (08/25/2022 2:59 PM CENTRAL OFFICE REPAIRER): Onset 3 days ago. COVID was negative today. Mostly dry cough. No respiratory distress. Will try Tessalon Perles. Chronic kidney disease, unspecified 06/01/2021 08/23/2023 Agitation 06/24/2020 02/13/2023 Assessment & Plan (06/24/2020 10:21 AM CENTRAL OFFICE REPAIRER): Worse when she does not eat. Sounds like it is related to hypoglycemia. Instructed patient on eating 3 meals a day. Acute midline low back pain without sciatica 0 12/28/2020 Frequent falls 06/24/2020 02/13/2023 Assessment & Plan (06/24/2020 1:38 PM CENTRAL OFFICE REPAIRER): Most likely secondary to right foot drop. Would benefit from an AFO. Other headache syndrome 12/18/201901/20 Assessment & Plan (12/18/2019 9:20 AM CDT): Most likely Cerebral infarction due to u nspecified occlusion or stenosis of unspecified cerebral artery 06/05/2019 08/23/2023 Hyperlipidemia 06/05/2019 08/23/2023 Dyslipidemia 04/23/2019 05/07/2019 Atherosclerosis of [place] co ronary artery of [place] heart with angina pectoris 07/24/20182018 History of allergy to aspirin 06/20/2018 12/16/2019 Overview (05/07/2019): Patient gives history of anaphylactic reaction with aspirin she also had anaphylactic reaction with the all cillins, mycins, quinine, Daypro, tetracycline and Talwin Nausea 03/29/2016 12/16/2019 Assessment & Plan (06/14/2019 9:00 AM CDT): Chronic, stable on zofran daily. 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 No history of falling this time. Will continue Tylenol No. 4, gabapentin. Will add baclofen for 1 week to cover for this pain and left neck pain. Assessment & Plan (01/04/2021 1:14 PM CDT): Pain controlled with Tylenol #4 Assessment & Plan (12/16/2019 8:37 AM CDT): Chronic. Pain controlled with Tylenol #4 Assessment & Plan (06/13/2019 3:45 PM CDT): Chronic, continue Tylenol No. 4 as needed. Essential (primary) hypertension 03/23/2016 05/07/2019 Overactive bladder 03/23/2016 Assessment & Plan (06/14/2019 9:00 AM CDT): Incontinence, managing without meds Allergic rhinitis 03/23/2016 01/20/2022 Assessment & Plan (12/16/2019 8:36 AM CDT): Stable. Patient takes Benadryl p.r.n. Assessment & Plan (06/13/2019 3:41 PM CDT): Stable. Patient takes Benadryl as needed.
--- OUTSIDE RECORDS SUMMARY | 2025-02-27 15:02 | XMS_ITS | Encounter Summary ---
Author Organization [facility] Healthcare Address [address] [place] [address] Care Team Providers Care Video Production Engineer Name Role Phone Сергей Cunningham MD Primary Care Provider + Reina Mena MD Unavailable Pedro Momin MD Unavailable Reason for Referral * MRI/CAT/PET Scan (Routine) - Closed Specialty Diagnoses / Procedures Referred By Contac t Referred To Contact Radiology Diagnoses Radiculopathy, lumbar region Bulge of lumbar disc without myelopathy Intractable low back pain Procedures MRI Lumbar Spine WO Contrast Reina Mena MD [address] [place] [address] [place] [address] Phone: tel: fax: [address] [phone] Referral ID Status Reason Start Date Expiration Date Visits Re quested Visits Authorized [id number] Closed 02/25/2025 03/27/2026 1 1 Reason for Visit * MRI/CAT/PET Scan (Routine) - Closed Specialty Diagnoses / Procedures Referred By Contac t Referred To Contact Radiology Diagnoses Radiculopathy, lumbar region Bulge of lumbar disc without myelopathy Intractable low back pain Procedures MRI Lumbar Spine WO Contrast Reina Mena MD [address] [place] [id number] Phone: tel: fax: [address] [phone] Referral ID Status Reason Start Date Expiration Date Visits Re quested Visits Authorized [id number] Closed 02/25/2025 03/27/2026 1 1 Encounter Details Date Type Department Care Team (Latest Contact Info) Description 02/26/2025 7:36 PM CDT - 02/26/2025 11:59 PM CDT Hospital Encounter [facility] [address] [place] [address] Radiculopathy, lumbar region; Bulge of lumbar disc without myelopathy; Intractable low back pain Discharge Disposition: Discharge to home or self care Social History Tobacco Use Types Packs/Day Years Used Date Smoking Tobacco: Former Cigarettes Q uit: 1983 Smokeless Tobacco: Never Alcohol Use Standard Drinks/Week [...] materials from doctor or pharmacy Never 05/14/2024 [facility] Utilities Answer Date Recorded In the past 12 months has e [employer], gas, oil, or water [employer] threatened to shut off services in your [...] 04/15/2024 How often do you attend chur or hoahaoism services? 1 to 4 times per year 04/15/2024 Do you belong to any clubs o r organizations such as adventist groups, unions, fraternal or athletic groups, or [...] any time in the past 12 m [facility], were you homeless or living in a residential (including now)? No 04/15/2024 Personal Safety Answer Date Recorded Have you ever been in or are you currently in a harmful physical or emotional relationship or is someone making you feel afraid or unsafe? 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 Gender Identity Female 08/19/2022 6:55 AM CREDIT SPECIALIST Sexual Orientation Not on file documented as of this encounter Medications at Time of Discharge acetaminophen-codein e (TYLENOL with CODEINE #4) 300-60 mg per tabletIndications:Ri ght sided sciatica Take 1 tablet by mouth every 4 (four) hours as needed for pain for pain 180 tablet 5 albuterol 2.5 mg /3 mL (0.083 %) nebulizer solutionIndications: Chronic Obstructive Pulmonary Disease Take 3 mL by nebulization every 4 (four) hours as needed for wheezing 3 allopurinoL (ZYLOPRIM) 100 mg tablet Take 1 tablet (100 mg total) by mouth daily amLODIPine (NORVASC) 10 mg tabletIndications:hy pertension Take 1 tablet (10 mg total) by mouth daily 4 atorvastatin (LIPITOR) 80 mg tabletIndications:hy perlipidemia Take 1 tablet (80 mg total) by mouth daily 90 tablet 1 9 benzonatate (TESSALON) 100 mg capsuleIndications:C ough Take 1-2 caps every 8 hours as needed 30 capsule 3 calcitRIOL (ROCALTROL) 0.25 mcg capsule Take 1 capsule (0.25 mcg total) by mouth daily 4 calcium carbonate-vitamin D3 600mg (1,000mg) -1,000 unit tabletIndications:Pr evention of Vitamin D Deficiency Take 1 tablet by mouth 2 (two) times a day 1 chlorthalidone (HYGROTON) 25 mg tablet Take 1 tablet by mouth once daily 90 tablet 1 5 cloNIDine (CATAPRES) 0.1 mg tabletIndications:hy pertension Take 1 tablet (0.1 mg total) by mouth daily as needed for high blood pressure 90 tablet 1 1 clopidogreL (PLAVIX) 75 mg tabletIndications:Ce rebral Thromboembolism Prevention Take 1 tablet (75 mg total) by mouth daily 30 tablet 4 5 diphenhydrAMINE (BENADRYL) 25 mg capsuleIndications:A LLERGIES Take 1 tablet/capsule (25 mg total) by mouth every 6 (six) hours as needed EPINEPHrine 0.3 mg/0.3 mL auto-injection syringe INJECT CONTENTS OF 1 PEN INTO THE MUSCLE NEEDED FOR ANAPHYLAXIS 2 each 5 furosemide (LASIX) 20 mg tablet Take 1 tablet (20 mg total) by mouth 3 (three) times a day gabapentin (NEURONTIN) 400 mg capsuleIndications:P ostherpetic Neuralgia TAKE 1 CAPSULE BY MOUTH THREE TIMES DAILY 270 capsule 1 5 guanFACINE ER (INTUNIV) 2 mg tablet extended release 24 hrIndications:Attent ion-Deficit Hyperactivity Disorder Take 1 tablet by mouth once daily 90 tablet 5 levalbuterol (XOPENEX HFA) 45 mcg/actuation inhalerIndications:A cute Asthma Attack Inhale 1-2 puffs every 4 (four) hours as needed for wheezing 1 each 5 5 levalbuterol (Xopenex) 1.25 mg/3 mL nebulizer solution Take 3 mL (1.25 mg total) by nebulization 3 (three) times a day as needed for wheezing 9 levETIRAcetam (KEPPRA) 500 mg tabletIndications:My oclonic Epilepsy Adjunct Treatment Take 1 tablet by mouth twice daily 180 tablet 1 5 loperamide (IMODIUM) 2 mg capsuleIndications:d iarrhea Take 1 capsule (2 mg total) by mouth 2 (two) times a day 30 capsule 4 losartan (COZAAR) 50 mg tabletIndications:hy pertension Take 1 tablet (50 mg total) by mouth daily 3 magnesium oxide (MAG-OX) 400 mg (241.3 mg elemental magnesium) tabletIndications:hy pomagnesemia Take 1 tablet (400 mg total) by mouth daily montelukast (SINGULAIR) 10 mg tablet Take 1 tablet (10 mg total) by mouth daily 5 nitroglycerin (NITROSTAT) 0.4 mg SL tabletIndications:ac pranav episode of anginal pain Place 1 tablet (0.4 mg total) under the tongue every 5 (five) minutes as needed ondansetron (ZOFRAN) 8 mg tabletIndications:Pr evention of Post-Operative Nausea and Vomiting Take 1 tablet by mouth every 8 hours as needed for nausea. 90 tablet 4 ranolazine ER (RANEXA) 500 mg 12 hr tabletIndications:pr evention of anginal pain in coronary artery disease Take 1 tablet by mouth twice daily 180 tablet 1 5 rOPINIRole (REQUIP) 1 mg tablet Take 1 tablet (1 mg total) by mouth daily 5 spironolactone (ALDACTONE) 25 mg tablet Take 1 tablet (25 mg total) by mouth daily documented as of this encounter Discharge Disposition Disposition Code Departure Means Destination Discharge to home or self care documented in this encounter Plan of Treatment Not on file documented as of this encounter Procedures Procedure Name Priority Date/Time Associated Diagnosis Comments MRI LUMBAR SPINE WO CONTRAST Schedule Routine, Read Routine (OP Routine) 02/26/2025 8:29 PM CDT Radiculopathy, lumbar region Bulge of lumbar disc without myelopathy Intractable low back pain documented in this encounter Results * MRI Lumbar Spine WO Contrast (02/26/2025 8:29 PM CDT) Anatomical Region Laterality Modality Spine N/A Magnetic Resonan ce 02/27/2025 9:26 AM CDT Narrative 02/27/2025 9:39 AM CDT EXAM DESCRIPTION: MRI LUMBAR SPINE WO CONTRAST REASON FOR STUDY: Back pain status post fall in garden in a couple of weeks ago in a patient reportedly engages cane for ambulatory assistance pursuant to prior strokes. No provided history of radiculopathy. No provided past surgical history. Per imaging record, history of lumbosacral transitional anatomy and chronic L1 compression fracture status post cemented vertebral augmentation. TECHNIQUE: Sagittal and axial imaging of the lumbar spine includes T1, T2, STIR sequences. Images saved to PACS. COMPARISON: Relevant portions of CT head/cervical spine without contrast, CT chest/abdomen/pelvis with contrast, and thoracic and lumbar spine reconstructions 02/20/2025; thoracic and lumbar spine radiograph 02/17/2025 and 01/19/2023; thoracic spine radiograph 11/02/2022; DEXA scan 09/05/2023: Reported as osteoporosis; MRI lumbar spine without contrast 09/26/2022. 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 For the purposes of this study, the lowest fully formed intervertebral disc level is labeled L5-S1. 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 ALIGNMENT: Alignment and curvature unchanged. VERTEBRAE: No MR evidence of acute-subacute fracture. Vertebral body heights unchanged, noting stable conformation and position of DISC HEIGHT: Multilevel variable intervertebral disc desiccation and loss of intervertebral disc height of the lower thoracic through lumbar spine. HARDWARE: None in the lumbar spine. CORD/CAUDA: Normal in size and signal intensity with conus medullaris termination at the superior aspect of L2. LOWER THORACIC: Incompletely imaged. No stenosis demonstrated. INDIVIDUAL DISC LEVELS: L1-2 tiny right eccentric central-right subarticular disc protrusion. No spinal canal stenosis. No neural foraminal stenosis. L2-3 mild posterior disc bulge bulge. Mild bilateral hypertrophic facet arthropathy, noting slight fluid in the right facet joints suggestive of facet synovitis. No spinal canal stenosis. No neural foraminal stenosis. L3-4 no significant diffuse disc bulge or focal herniation. Mild bilateral hypertrophic facet arthropathy. No spinal canal stenosis. No neural foraminal stenosis. L4-5: Mild annular disc bulge. Bilateral hypertrophic facet arthropathy, noting slight fluid in the facet joints suggestive of facet synovitis. No spinal canal stenosis. No neural foraminal stenosis. L5-S1: Mild posterior predominant annular disc bulge. Bilateral hypertrophic facet arthropathy, noting fluid in the right facet joints suggestive of facet synovitis. Mild ligamentum flavum thickening. No spinal canal stenosis. Mild right neural foraminal stenosis. S1-2: No diffuse disc bulge or focal herniation. Bilateral hypertrophic facet arthropathy. No spinal canal stenosis. No neural foraminal stenosis. SACRUM: Visualized upper sacrum intact. VISUALIZED UPPER ABDOMEN: No acute abnormality. Please reference recent abdominopelvic CT imaging for abdominopelvic findings. OTHER: No other significant findings. IMPRESSION: 1. Lumbosacral transitional anatomy as discussed above. 2. Stable appearance of chronic L1 compression fracture status post cemented vertebral augmentation. 3. 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 THIS IS AN ELECTRONICALLY VERIFIED FINAL REPORT 02/27/2025 9:39 AM - Electronically signed by Rigo Swartz M.D. JOSHUA T: Report ID: [id number] Reading Location: [place] [address] Procedure Note Rigo Swartz MD - 02/27/2025 EXAM DESCRIPTION: MRI LUMBAR SPINE WO CONTRAST REASON FOR STUDY: Back pain status post fall in garden in a couple ofweeks ago in a patient reportedly engages cane for ambulatory assistancepursuant to prior strokes. No provided history of radiculopathy. No provided past surgical history. Per imaging record, history of lumbosacral transitional anatomy and chronic L1 compression fracture status post cemented vertebral augmentation. TECHNIQUE: Sagittal and axial imaging of the lumbar spine includes T1,T2, STIR sequences. Images saved to PACS. COMPARISON: Relevant portions of CT head/cervical spine withoutcontrast, CT chest/abdomen/pelvis with contrast, and thoracic and lumbar spine reconstructions 02/20/2025; thoracic and lumbar spine [id number]/30/2025 and 01/19/2023; thoracic spine radiograph 11/02/2022; DEXA scan09/05/2023: Reported as osteoporosis; MRI lumbar spine without contrast 09/26/2022. 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 ALIGNMENT: Alignment and curvature unchanged. VERTEBRAE: No MR evidence of acute-subacute fracture. Vertebral body heights unchanged, noting stable conformation and position of DISC HEIGHT: Multilevel variable intervertebral disc desiccation andloss of intervertebral disc height of the lower thoracic through lumbar spine. HARDWARE: None in the lumbar spine. CORD/CAUDA: Normal in size and signal intensity with conus medullaris termination at the superior aspect of L2. LOWER THORACIC: Incompletely imaged. No stenosis demonstrated. INDIVIDUAL DISC LEVELS: L1-2 tiny right eccentric central-right subarticular disc protrusion. No spinal canal stenosis. No neural foraminal stenosis. L2-3 mild posterior disc bulge bulge. Mild bilateral hypertrophic facet arthropathy, noting slight fluid in the right facet joints suggestive offacet synovitis. No spinal canal stenosis. No neural foraminal stenosis. L3-4 no significant diffuse disc bulge or focal herniation. Mildbilateral hypertrophic facet arthropathy. No spinal canal stenosis. No neural foraminal stenosis. L4-5: Mild annular disc bulge. Bilateral hypertrophic facet arthropathy, noting slight fluid in the facet joints suggestive of facet synovitis. No spinal canal stenosis. No neural foraminal stenosis. L5-S1: Mild posterior predominant annular disc bulge. Bilateral hypertrophic facet arthropathy, noting fluid in the right facet joints suggestive of facet synovitis. Mild ligamentum flavum thickening. Nospinal canal stenosis. Mild right neural foraminal stenosis. S1-2: No diffuse disc bulge or focal herniation. Bilateral hypertrophicfacet arthropathy. No spinal canal stenosis. No neural foraminal stenosis. SACRUM: Visualized upper sacrum intact. VISUALIZED UPPER ABDOMEN: No acute abnormality. Please reference recent abdominopelvic CT imaging for abdominopelvic findings. OTHER: No other significant findings. IMPRESSION: 1. Lumbosacral transitional anatomy as discussed above. 2. Stable appearance of chronic L1 compression fracture status postcemented vertebral augmentation. 3. Spondylosis and degenerative disc disease of the lumbar spine asdetailed level by level above. THIS IS AN ELECTRONICALLY VERIFIED FINAL REPORT 02/27/2025 9:39 AM - Electronically signed by Rigo LEWIS T: Report ID: [id number] Reading Location: [place] [address] Reina Mnea MD IMG MRI PROCEDURES Final Result documented in this encounter Visit Diagnoses Diagnosis Radiculopathy, lumbar region Thoracic or lumbosacral neuritis or radiculitis, unspecified Bulge of lumbar disc without myelopathy Intractable low back pain documented in this encounter Care Teams Video Production Engineer Relationship Specialty Start Date End Date Сергей Cunningham MD [address] [place] [address] PCP - General Internal Medicine 01/15/19 Reina Mena MD [address] [facility], [address] [address] Consulting Physician Pain Management 10/12/22 [place] [id number] [address] Consulting Physician Cardiology 08/04/23 documented as of this encounter
--- OUTSIDE RECORDS SUMMARY | 2025-02-27 15:02 | XMS_ITS | Clinical Summary ---
[place] [facility] [facility] Address [address] [facility] [place] [address] Care Team Providers Care Research Director Name Role Phone Сергей Cunningham MD Primary Care Provider + Reina Mena MD Unavailable Pedro Momin MD Unavailable Allergies Active Allergy Reactions Criticality Noted Date Comments Aspirin Anaphylaxis High 04/17/2014 Erythromycin Anaphylaxis High 11/19/2018 Oxaprozin Anaphylaxis High 11/19/2018 Penicillins Anaphylaxis High 04/17/2014 anaphylaxis Pentazocine Anaphylaxis High 11/19/2018 Quinine Anaphylaxis High 11/19/2018 Sumatriptan Anaphylaxis High 11/19/2018 Talwin Compound Anaphylaxis High 11/03/2023 Tetracyclines Anaphylaxis High 11/19/2018 Medications diphenhydrAMINE (BENADRYL) 25 mg capsuleIndications :ALLERGIES Take 1 tablet/capsule (25 mg total) by mouth every 6 (six) hours as needed Active nitroglycerin (NITROSTAT) 0.4 mg SL tabletIndications: acute episode of anginal pain Place 1 tablet (0.4 mg total) under the tongue every 5 (five) minutes as needed Active atorvastatin (LIPITOR) 80 mg tabletIndications: hyperlipidemia Take 1 tablet (80 mg total) by mouth daily 90 tablet 1 019 Active cloNIDine (CATAPRES) 0.1 mg tabletIndications: hypertension Take 1 tablet (0.1 mg total) by mouth daily as needed for high blood pressure 90 tablet 1 021 Active calcium carbonate-vitamin D3 600mg (1,000mg) -1,000 unit tabletIndications: Prevention of Vitamin D Deficiency Take 1 tablet by mouth 2 (two) times a day 021 Active magnesium oxide (MAG-OX) 400 mg (241.3 mg elemental magnesium) tabletIndications: hypomagnesemia Take 1 tablet (400 mg total) by mouth daily Active benzonatate (TESSALON) 100 mg capsuleIndications :Cough Take 1-2 caps every 8 hours as needed 30 capsule 023 Active albuterol 2.5 mg /3 mL (0.083 %) nebulizer solutionIndication s:Chronic Obstructive Pulmonary Disease Take 3 mL by nebulization every 4 (four) hours as needed for wheezing 023 Active losartan (COZAAR) 50 mg tabletIndications: hypertension Take 1 tablet (50 mg total) by mouth daily 023 Active amLODIPine (NORVASC) 10 mg tabletIndications: hypertension Take 1 tablet (10 mg total) by mouth daily 024 Active ondansetron (ZOFRAN) 8 mg tabletIndications: Prevention of Post-Operative Nausea and Vomiting Take 1 tablet by mouth every 8 hours as needed for nausea. 90 tablet 024 Active sucralfate (CARAFATE) 1 gram tabletIndications: Reflux Esophagitis Take 1 tablet (1 g total) by mouth 4 (four) times a day 120 tablet 1 024 Active loperamide (IMODIUM) 2 mg capsuleIndications :diarrhea Take 1 capsule (2 mg total) by mouth 2 (two) times a day 30 capsule 024 Active calcitRIOL (ROCALTROL) 0.25 mcg capsule Take 1 capsule (0.25 mcg total) by mouth daily 024 Active spironolactone (ALDACTONE) 25 mg tablet Take 1 tablet (25 mg total) by mouth daily Active pantoprazole DR (PROTONIX) 40 mg EC tabletIndications: Mucositis Prophylaxis Take 1 tablet (40 mg total) by mouth 2 (two) times a day 180 tablet 1 025 Active EPINEPHrine 0.3 mg/0.3 mL auto-injection syringe INJECT CONTENTS OF 1 PEN INTO THE MUSCLE NEEDED FOR ANAPHYLAXIS 2 each 025 Active levETIRAcetam (KEPPRA) 500 mg tabletIndications: Myoclonic Epilepsy Adjunct Treatment Take 1 tablet by mouth twice daily 180 tablet 1 025 Active ranolazine ER (RANEXA) 500 mg 12 hr tabletIndications: prevention of anginal pain in coronary artery disease Take 1 tablet by mouth twice daily 180 tablet 1 025 Active levalbuterol (XOPENEX HFA) 45 mcg/actuation inhalerIndications :Acute Asthma Attack Inhale 1-2 puffs every 4 (four) hours as needed for wheezing 1 each 5 025 Active chlorthalidone (HYGROTON) 25 mg tablet Take 1 tablet by mouth once daily 90 tablet 1 025 Active gabapentin (NEURONTIN) 400 mg capsuleIndications :Postherpetic Neuralgia TAKE 1 CAPSULE BY MOUTH THREE TIMES DAILY 270 capsule 1 025 Active rOPINIRole (REQUIP) 1 mg tablet Take 1 tablet (1 mg total) by mouth daily 025 Active montelukast (SINGULAIR) 10 mg tablet Take 1 tablet (10 mg total) by mouth daily 025 Active allopurinoL (ZYLOPRIM) 100 mg tablet Take 1 tablet (100 mg total) by mouth daily Active levalbuterol (Xopenex) 1.25 mg/3 mL nebulizer solution Take 3 mL (1.25 mg total) by nebulization 3 (three) times a day as needed for wheezing 019 Active furosemide (LASIX) 20 mg tablet Take 1 tablet (20 mg total) by mouth 3 (three) times a day Active clopidogreL (PLAVIX) 75 mg tabletIndications: Cerebral Thromboembolism Prevention Take 1 tablet (75 mg total) by mouth daily 30 tablet 4 025 Active guanFACINE ER (INTUNIV) 2 mg tablet extended release 24 hrIndications:Atte ntion-Deficit Hyperactivity Disorder Take 1 tablet by mouth once daily 90 tablet 025 Active acetaminophen-code ine (TYLENOL with CODEINE #4) 300-60 mg per tabletIndications: Right sided sciatica Take 1 tablet by mouth every 4 (four) hours as needed for pain for pain 180 tablet 025 Active rOPINIRole (REQUIP) 0.5 mg tabletIndications: Restless Legs Syndrome Take 1 tablet (0.5 mg total) by mouth nightly 024 2024 Discontinued(A lternate therapy) ondansetron ODT (ZOFRAN-ODT) 4 mg disintegrating tabletIndications: Nausea and Vomiting Take 1 tablet (4 mg total) by mouth every 6 (six) hours as needed for nausea or vomiting 20 tablet 1 024 2024 Discontinued(D uplicate order) clopidogreL (PLAVIX) 75 mg tabletIndications: Cerebral Thromboembolism Prevention Take 1 tablet by mouth once daily 30 tablet 5 025 2024 Discontinued(R eorder) furosemide (LASIX) 20 mg tabletIndications: hypertension Take 1 tablet by mouth once daily 90 tablet 1 025 2024 Discontinued(A lternate therapy) guanFACINE ER (INTUNIV) 2 mg tablet extended release 24 hrIndications:Atte ntion-Deficit Hyperactivity Disorder Take 1 tablet by mouth once daily 90 tablet 025 2024 Discontinued acetaminophen-code ine (TYLENOL with CODEINE #4) 300-60 mg per tabletIndications: Right sided sciatica Take 1 tablet by mouth every 4 (four) hours as needed for pain for pain 180 tablet 025 2024 Discontinued(A lternate therapy) HYDROcodone-acetam inophen (NORCO) 5-325 mg per tabletIndications: Pain Take 1 tablet by mouth every 6 (six) hours as needed for pain (as needed for pain) for up to 7 days 28 tablet 025 2024 ondansetron ODT (ZOFRAN-ODT) 4 mg disintegrating tablet Take 1 tablet (4 mg total) by mouth every 8 (eight) hours as needed for nausea or vomiting for up to 3 days 10 tablet 025 2024 Active Problems Problem Noted Date Diagnosed Date [...] 025 Assessment & Plan (10/03/2024 2:34 PM JAIL OFFICER): Stable on losartan. Follows with Dr. Merrill SANTIAGO 03/13/2024 Assessment & Plan (03/13/2024 8:42 AM CDT): Will look into studies at [facility] Iron deficiency anemia due to chronic blood loss 08/23/2023 Assessment & Plan (10/01/2024 7:12 AM JAIL OFFICER): Stable on iron daily. Follows with Hematology. Assessment & Plan (08/23/2023 7:00 AM JAIL OFFICER): Stable on iron daily. Follows with Hematology. Basal cell carcinoma of lower eyelid, left 08/03 Hordeolum externum left lower eyelid 07/10/2023 Assessment & Plan (07/10/2023 4:06 PM JAIL OFFICER): Improving on its own. Okay to observe to resolution. Thoracic spondylosis 01/19/2023 Spondylosis of lumbar region without myelopathy or radiculopathy 01/19/2023 Muscle strain 08/25/2022 Assessment & Plan (08/25/2022 2:59 PM JAIL OFFICER): Multiple sites after falling on August 16. No fractures. Patient still has lumbar pain with right-sided sciatica. Will try prednisone taper. Lesage and cyclobenzaprine prescribed in ER did not help pain at all, will stop that. Multiple thyroid nodules 08/25/2022 Assessment & Plan (10/01/2024 7:12 AM JAIL OFFICER): Reina. Follows with Dr. Canela Assessment & Plan (08/23/2023 6:55 AM JAIL OFFICER): Due for repeat thyroid ultrasound Assessment & Plan (02/13/2023 7:21 AM CDT): Due for repeat thyroid ultrasound in August 2023 Assessment & Plan (08/25/2022 1:57 PM JAIL OFFICER): Incidental finding on neck CT that was [...] any relief. Will temporary switch it to Lesage 5/325 1 tablet every 6 hours. Do not take Tylenol No. 4 while on Lesage. Will check lumbar x-ray. Patient currently has [...] Narcan. Assessment & Plan (10/01/2024 7:11 AM JAIL OFFICER): Stable on Tylenol No. 4 and gabapentin. Assessment & Plan (03/12/2024 8:09 AM CDT): Stable on Tylenol No. 4 and gabapentin. Assessment & Plan (02/13/2023 7:20 AM CDT): Stable on Tylenol No. 4 and gabapentin. Assessment & Plan (08/01/2022 8:32 AM JAIL OFFICER): Stable on Tylenol No. 4 and gabapentin. [...] 06/24/2020 Assessment & Plan (10/01/2024 7:11 AM JAIL OFFICER): Residual weakness secondary to CVA. Stable. Assessment & Plan (03/12/2024 8:09 AM CDT): Residual weakness secondary to CVA. Stable. Assessment & Plan (08/23/2023 6:55 AM JAIL OFFICER): Residual weakness secondary to CVA. Stable. Assessment & Plan (02/13/2023 7:20 AM CDT): Residual weakness secondary to CVA. Stable. Assessment & Plan (07/28/2022 12:19 PM JAIL OFFICER): Residual weakness secondary to CVA. Stable. Assessment & Plan (01/20/2022 8:41 AM CDT): Residual weakness secondary to CVA. Assessment & Plan (07/08/2021 1:03 PM JAIL OFFICER): Residual weakness secondary to CVA. Assessment & Plan (01/04/2021 1:13 PM CDT): Residual weakness secondary to CVA. Has a right footdrop. Assessment & Plan (06/24/2020 10:36 AM JAIL OFFICER): Residual weakness secondary to CVA. Has right foot drop. Right foot drop 06/24/2020 Assessment & Plan (10/01/2024 7:11 AM JAIL OFFICER): Stable. Requires an AFO to ambulate. Assessment & Plan (03/12/2024 8:09 AM CDT): Stable. Requires an AFO to ambulate. Assessment & Plan (08/23/2023 6:55 AM JAIL OFFICER): Stable. Requires an AFO to ambulate. Assessment & Plan (02/13/2023 7:21 AM CDT): Stable. Requires an AFO to ambulate. Assessment & Plan (07/28/2022 12:19 PM JAIL OFFICER): Stable. Requires an AFO to ambulate. Assessment & Plan (01/20/2022 8:40 AM CDT): Stable. Required AFO to ambulate Assessment & Plan (07/08/2021 1:03 PM JAIL OFFICER): Stable. Requires AFO to ambulate Assessment & Plan (01/04/2021 1:14 PM CDT): Stable. Requires AFO to ambulate Assessment & Plan (06/24/2020 10:36 AM JAIL OFFICER): We will order an AFO to help [...] prn. Assessment & Plan (06/24/2020 10:43 AM JAIL OFFICER): Pain worse secondary to falls. Will check MRI to rule out compression fracture or herniated disc. Encounter for Medicare annual wellness exam 10/2019 Depression screening 06/23/2020 Assessment & Plan (03/12/2024 8:10 AM CDT): Negative for depression Assessment & Plan (02/13/2023 7:22 AM CDT): Negative for depression Assessment & Plan (01/20/2022 8:41 AM CDT): Negative for depression Assessment & Plan (06/23/2020 12:34 PM JAIL OFFICER): Negative for depression Risk for falls 06/23/2020 [...] footdrop Assessment & Plan (06/24/2020 10:38 AM JAIL OFFICER): High risk for falls secondary to right foot drop Osteopenia of neck of femur 12/18/2019 Overview (12/18/2019): Last bone density was done in June of 2019. She was started on Fosamax at that time. Assessment & Plan (10/01/2024 7:11 AM JAIL OFFICER): Bone density was worse on DEXA in June of 2023. Continue calcium plus vitamin-D. Assessment & Plan (03/12/2024 8:09 AM CDT): Bone density was worse on DEXA in June of 2023. Continue calcium plus vitamin-D. Assessment & Plan (08/23/2023 6:54 AM JAIL OFFICER): Bone density improved on July 05, 2021. Continue calcium plus vitamin-D. Assessment & Plan (02/13/2023 7:19 AM CDT): Bone density improved on July 05, 2021. Continue calcium plus vitamin-D. Assessment & Plan (01/20/2022 8:40 AM CDT): Bone density improved on July 05, 2021. Continue calcium plus vitamin-D Assessment & Plan (07/12/2021 8:56 AM JAIL OFFICER): Bone density was improved on a July 05, 2021. Continue calcium plus vitamin- D. Assessment & Plan (01/06/2021 3:04 PM CDT): Continue calcium plus vitamin-D. Due for repeat bone density in June of 2021. Stop alendronate secondary to side effects. Assessment & Plan (06/23/2020 12:34 PM JAIL OFFICER): Stable on alendronate and calcium plus vitamin-D. Will due for repeat bone density in June 2021 Assessment & Plan (12/18/2019 9:31 AM CDT): Continue alendronate and calcium plus vitamin-D. Will be due for repeat bone density in June of 2021 Aspirin allergy 12/16/2019 Assessment & Plan (10/01/2024 7:11 AM JAIL OFFICER): Patient gets anaphylaxis from aspirin. Assessment & Plan (03/12/2024 8:10 AM CDT): Patient gets anaphylaxis from aspirin. Assessment & Plan (08/23/2023 6:54 AM JAIL OFFICER): Patient gets anaphylaxis from aspirin. Assessment & Plan (06/23/2020 12:33 PM JAIL OFFICER): Patient gets anaphylaxis from aspirin. Assessment & Plan (12/16/2019 8:34 AM CDT): Patient gets anaphylaxis from aspirin. Chronic stable angina 05/07/2019 Assessment & Plan (10/01/2024 7:11 AM JAIL OFFICER): Stable on isosorbide and Ranexa Assessment & Plan (03/12/2024 8:07 AM CDT): Stable on isosorbide and Ranexa Assessment & Plan (08/23/2023 6:54 AM JAIL OFFICER): Stable on isosorbide and Ranexa Assessment & Plan (02/13/2023 7:19 AM CDT): Stable on isosorbide and Ranexa Assessment & Plan (07/28/2022 12:20 PM JAIL OFFICER): Stable on isosorbide and Ranexa Assessment & Plan (01/20/2022 8:39 AM CDT): Stable on isosorbide and Ranexa Assessment & Plan (07/08/2021 1:03 PM JAIL OFFICER): Stable on isosorbide and Ranexa Assessment & Plan (01/04/2021 1:12 PM CDT): Stable on isosorbide and Ranexa Assessment & Plan (06/23/2020 12:31 PM JAIL OFFICER): Stable on isosorbide and Ranexa Assessment & Plan (12/16/2019 8:37 AM CDT): Stable on isosorbide and Ranexa Assessment & Plan (06/13/2019 3:35 PM CDT): Continue isosorbide and nitroglycerin as needed. Hypertensive heart and kidne y disease without heart failure and with chronic kidney disease stage IV 10/31/2018 Assessment & Plan (10/01/2024 7:10 AM JAIL OFFICER): Well controlled on amlodipine, clonidine, and guanfacine Assessment & Plan (03/13/2024 8:32 AM CDT): Well controlled on amlodipine, clonidine, and guanfacine Assessment & Plan (08/23/2023 6:53 AM JAIL OFFICER): Well controlled on chlorthalidone, amlodipine, clonidine, and guanfacine Assessment & Plan (02/13/2023 7:17 AM CDT): Well controlled on chlorthalidone, amlodipine, clonidine, and guanfacine Assessment & Plan (07/28/2022 12:17 PM JAIL OFFICER): Well controlled on chlorthalidone, amlodipine, clonidine, and guanfacine Assessment & Plan (01/20/2022 8:37 AM CDT): Well controlled on chlorthalidone, amlodipine, clonidine, and guanfacine. Assessment & Plan (07/12/2021 9:13 AM JAIL OFFICER): Well controlled on chlorthalidone, amlodipine, clonidine, and guanfacine. Spironolactone and isosorbide on hold. Assessment & Plan (01/04/2021 1:11 PM CDT): Well controlled onWell controlled on spironolactone, chlorthalidone, amlodipine, clonidine, and guanfacine Assessment & Plan (06/23/2020 12:30 PM JAIL OFFICER): Well controlled. Continue spironolactone, chlorthalidone, amlodipine, clonidine, furosemide, and guanfacine Assessment & Plan (12/16/2019 8:33 AM CDT): Well controlled. Continue spironolactone, chlorthalidone, amlodipine, clonidine, furosemide, and guanfacine Assessment & Plan (06/13/2019 3:32 PM CDT): Well controlled. Continue spironolactone, chlorthalidone, amlodipine, clonidine, furosemide, guanfacine. 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 Circumflex has 25% stenosis. RCA has proximal 30% followed was on 5% stenosis. Distally it has a 30% and 60% les Assessment & Plan (10/01/2024 7:10 AM JAIL OFFICER): Stable on atorvastatin and clopidogrel. Not on aspirin secondary to aspirin allergy Assessment & Plan (03/12/2024 8:06 AM CDT): Stable on atorvastatin and clopidogrel. Not on aspirin secondary to aspirin allergy Assessment & Plan (08/23/2023 6:53 AM JAIL OFFICER): Stable on atorvastatin and clopidogrel. Not on aspirin secondary to aspirin allergy Assessment & Plan (02/13/2023 7:17 AM CDT): Stable on atorvastatin and clopidogrel. Not on aspirin secondary to aspirin allergy Assessment & Plan (07/28/2022 12:20 PM JAIL OFFICER): Stable on atorvastatin and clopidogrel. Not on aspirin secondary to aspirin allergy Assessment & Plan (01/20/2022 8:38 AM CDT): Stable on atorvastatin and clopidogrel. Not on aspirin secondary to aspirin allergy. Assessment & Plan (07/08/2021 12:59 PM JAIL OFFICER): Stable on atorvastatin and clopidogrel. Not on aspirin secondary to aspirin allergy Assessment & Plan (01/04/2021 1:11 PM CDT): Stable on atorvastatin and clopidogrel. Not on aspirin secondary to aspirin allergy. Assessment & Plan (06/23/2020 12:30 PM JAIL OFFICER): Stable. Continue isosorbide, nitroglycerin, Ranexa, and atorvastatin. Patient has allergy to aspirin and does not tolerate beta-rosales secondary to her asthma. She follows with Dr. Maurice. Assessment & Plan (12/16/2019 8:34 AM CDT): Stable. Patient follows with Dr. Maurice. Continue isosorbide, nitroglycerin, Ranexa, and atorvastatin. Patient has an allergy to aspirin. Assessment & Plan (06/14/2019 9:06 AM CDT): Stable. Patient sees Dr. Maurice, his checking lipid panel and liver function. Pain continue isosorbide, nitroglycerin, ranexa and atorvastatin.. History of coronary artery stent placement 08/15 Overview (05/07/2019): Patient had stent placement in the mid LAD and also proximal to mid RCA on 07/16/2018 Assessment & Plan (12/16/2019 8:37 AM CDT): Stable on clopidogrel Chronic constipation 04/18/2018 Assessment & Plan (08/23/2023 6:56 AM JAIL OFFICER): Stable on Linzess Assessment & Plan (02/13/2023 7:19 AM CDT): Stable on Linzess Assessment & Plan (07/28/2022 12:20 PM JAIL OFFICER): Stable on Linzess Assessment & Plan (01/20/2022 8:39 AM CDT): Stable on Linzess Assessment & Plan (07/12/2021 9:11 AM JAIL OFFICER): Stable on linzess and docusate sodium. Class 1 obesity due to exces s calories with serious comorbidity and body mass index (BMI) of 30.0 to 30.9 in adult 04/18/2018 Assessment & Plan (10/01/2024 7:12 AM JAIL OFFICER): BMI Follow-up includes: exercise counseling. Assessment & Plan (03/12/2024 8:09 AM CDT): BMI Follow-up includes: exercise counseling. Assessment & Plan (08/23/2023 6:54 AM JAIL OFFICER): BMI Follow-up includes: exercise counseling. Assessment & Plan (02/13/2023 7:19 AM CDT): BMI Follow-up includes: exercise counseling. Assessment & Plan (07/28/2022 12:19 PM JAIL OFFICER): BMI Follow-up includes: exercise counseling. Assessment & Plan (01/20/2022 8:39 AM CDT): BMI Follow-up includes: exercise counseling. Assessment & Plan (07/08/2021 1:03 PM JAIL OFFICER): BMI Follow-up includes: exercise counseling. Assessment & Plan (01/04/2021 1:14 PM CDT): BMI Follow-up includes: exercise counseling. Assessment & Plan (06/23/2020 12:33 PM JAIL OFFICER): BMI Follow-up includes: exercise counseling. Pure hypercholesterolemia 10/04/2016 Assessment & Plan (10/01/2024 7:10 AM JAIL OFFICER): Stable on atorvastatin Assessment & Plan (03/12/2024 8:06 AM CDT): Stable on atorvastatin Assessment & Plan (08/23/2023 6:53 AM JAIL OFFICER): Stable on atorvastatin Assessment & Plan (02/13/2023 7:18 AM CDT): Stable on atorvastatin Assessment & Plan (07/28/2022 12:17 PM JAIL OFFICER): Stable on atorvastatin Assessment & Plan (01/20/2022 8:38 AM CDT): Stable on atorvastatin Assessment & Plan (07/08/2021 12:59 PM JAIL OFFICER): Stable on atorvastatin Assessment & Plan (01/04/2021 1:11 PM CDT): Stable on atorvastatin Assessment & Plan (06/23/2020 12:31 PM JAIL OFFICER): Stable on atorvastatin Assessment & Plan (12/16/2019 8:35 AM CDT): Stable on atorvastatin Assessment & Plan (06/13/2019 3:40 PM CDT): Well controlled on atorvastatin. Dr. Maurice checks lipids GERD (gastroesophageal reflux disease) 6 Assessment & Plan (10/01/2024 7:11 AM JAIL OFFICER): Stable on pantoprazole Assessment & Plan (03/12/2024 8:07 AM CDT): Stable on pantoprazole Assessment & Plan (08/23/2023 6:54 AM JAIL OFFICER): Stable on pantoprazole Assessment & Plan (02/13/2023 7:18 AM CDT): Stable on pantoprazole Assessment & Plan (07/28/2022 12:18 PM JAIL OFFICER): Stable on pantoprazole Assessment & Plan (01/20/2022 8:39 AM CDT): Stable on pantoprazole Assessment & Plan (07/08/2021 1:02 PM JAIL OFFICER): Stable on pantoprazole Assessment & Plan (01/04/2021 1:13 PM CDT): Stable on pantoprazole Assessment & Plan (06/23/2020 12:33 PM JAIL OFFICER): Stable on pantoprazole Assessment & Plan (12/16/2019 8:37 AM CDT): Stable on pantoprazole Assessment & Plan (06/13/2019 3:44 PM CDT): Stable, continue pantoprazole. Mild intermittent asthma with acute exacerbation 03/23/2016 Assessment & Plan (11/06/2024 2:39 PM CDT): With exacerbation. Continue albuterol HFA and albuterol nebulizer. Will do a prednisone taper Assessment & Plan (10/01/2024 7:10 AM JAIL OFFICER): Stable. Continue albuterol HFA and albuterol nebulizer Assessment & Plan (03/12/2024 8:06 AM CDT): Stable. Continue albuterol HFA and albuterol nebulizer Assessment & Plan (08/23/2023 6:53 AM JAIL OFFICER): Stable. Continue albuterol HFA and albuterol nebulizer Assessment & Plan (02/13/2023 7:18 AM CDT): Stable. Continue albuterol HFA and albuterol nebulizer Assessment & Plan (07/28/2022 12:18 PM JAIL OFFICER): Stable. Continue albuterol HFA and albuterol nebulizer Assessment & Plan (01/20/2022 8:38 AM CDT): Stable. Continue albuterol HFA and albuterol nebulized Assessment & Plan (07/08/2021 1:01 PM JAIL OFFICER): Stable. Continue albuterol HFA and albuterol nebulizer. Assessment & Plan (01/04/2021 1:12 PM CDT): Stable. Continue albuterol HFA and albuterol nebulizer Assessment & Plan (06/23/2020 12:32 PM JAIL OFFICER): Stable. Continue albuterol HFA p.r.n. and albuterol nebulizer. Assessment & Plan (12/16/2019 8:35 AM CDT): Stable. Continue a albuterol HFA p.r.n. and nebulizer p.r.n. Assessment & Plan (06/13/2019 3:43 PM CDT): Stable. Continue albuterol inhaler and nebulizer as needed. History of CVA with residual deficit 03/23/2016 Assessment & Plan (10/01/2024 7:10 AM JAIL OFFICER): Stable on clopidogrel and atorvastatin Assessment & Plan (03/12/2024 8:06 AM CDT): Stable on clopidogrel and atorvastatin Assessment & Plan (08/23/2023 6:54 AM JAIL OFFICER): Stable on clopidogrel and atorvastatin Assessment & Plan (02/13/2023 7:18 AM CDT): Stable on clopidogrel and atorvastatin Assessment & Plan (07/28/2022 12:18 PM JAIL OFFICER): Stable on clopidogrel and atorvastatin Assessment & Plan (01/20/2022 8:38 AM CDT): Stable on clopidogrel and atorvastatin Assessment & Plan (07/08/2021 1:01 PM JAIL OFFICER): Stable on clopidogrel and atorvastatin Assessment & Plan (01/04/2021 1:12 PM CDT): Stable on clopidogrel and atorvastatin Assessment & Plan (06/23/2020 12:31 PM JAIL OFFICER): Stable on clopidogrel and atorvastatin Assessment & Plan (12/16/2019 8:35 AM CDT): Stable on clopidogrel and atorvastatin. Assessment & Plan (06/14/2019 9:19 AM CDT): With expressive aphasia. Stable. Continue clopidogrel, atorvastatin. Expressive aphasia 03/23/2016 Assessment & Plan (10/01/2024 7:11 AM JAIL OFFICER): Stable Assessment & Plan (03/12/2024 8:06 AM CDT): Stable Assessment & Plan (08/23/2023 6:54 AM JAIL OFFICER): Stable Assessment & Plan (02/13/2023 7:18 AM CDT): Stable Assessment & Plan (07/28/2022 12:18 PM JAIL OFFICER): Stable Assessment & Plan (01/20/2022 8:39 AM CDT): Stable Assessment & Plan (07/08/2021 1:01 PM JAIL OFFICER): Stable Assessment & Plan (01/04/2021 1:12 PM CDT): Stable Assessment & Plan (06/23/2020 12:32 PM JAIL OFFICER): Stable Assessment & Plan (12/16/2019 8:36 AM CDT): Stable Assessment & Plan (06/14/2019 1:49 PM CDT): Stable Seizure disorder 03/23/2016 Assessment & Plan (10/01/2024 7:11 AM JAIL OFFICER): Stable on Keppra Assessment & Plan (03/12/2024 8:06 AM CDT): Stable on Keppra Assessment & Plan (08/23/2023 6:54 AM JAIL OFFICER): Stable on Keppra Assessment & Plan (02/13/2023 7:18 AM CDT): Stable on Keppra Assessment & Plan (07/28/2022 12:18 PM JAIL OFFICER): Stable on Keppra Assessment & Plan (01/20/2022 8:39 AM CDT): Stable on Keppra Assessment & Plan (07/12/2021 9:13 AM JAIL OFFICER): Keppra currently on hold Assessment & Plan (01/04/2021 1:13 PM CDT): Stable on Keppra Assessment & Plan (06/23/2020 12:31 PM JAIL OFFICER): Stable on Keppra Assessment & Plan (12/16/2019 8:36 AM CDT): Stable on Keppra. Assessment & Plan (06/14/2019 9:02 AM CDT): Stable, continue Keppra. Pt takes it as precautionary treatment after stroke. Doesn't see neurologist anymore. Resolved Problems Problem Noted Date Diagnosed Date Resolved Date Abdominal pain 04/13/2024 09/16/2024 Nausea and vomiting 04/12/2024 09/16/19 25 Fall 04/09/2023 08/23/2023 Acute non-recurrent maxillary sinusitis 03/08/2023 08/23/2023 Assessment & Plan (07/10/2023 4:01 PM JAIL OFFICER): Mostly sinus congestion. Pt had anaphylactic reaction [...] 02/13/2023 Assessment & Plan (08/25/2022 2:59 PM JAIL OFFICER): Onset 3 days ago. COVID was negative today. Mostly dry cough. No respiratory distress. Will try Tessalon Perles. Chronic kidney disease, unspecified 06/01/2021 08/23/2023 Agitation 06/24/2020 02/13/2023 Assessment & Plan (06/24/2020 10:21 AM JAIL OFFICER): Worse when she does not eat. Sounds like it is related to hypoglycemia. Instructed patient on eating 3 meals a day. Acute midline low back pain without sciatica 0 12/28/2020 Frequent falls 06/24/2020 02/13/2023 Assessment & Plan (06/24/2020 1:38 PM JAIL OFFICER): Most likely secondary to right foot drop. Would benefit from an AFO. 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 Patient takes Benadryl as needed. Encounters Date Type Department Care Team Description 02/26/2025 7:36 PM CDT - 02/26/2025 11:59 PM CDT Hospital Encounter [facility] [address] [place] [id number] Radiculopathy, lumbar region; Bulge of lumbar disc without myelopathy; Intractable low back pain Discharge Disposition: Discharge to home or self care 02/25/2025 8:32 AM CDT - 02/25/2025 11:59 PM CDT Hospital Encounter 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; Intractable low back pain Discharge Disposition: Discharge to home or self care 02/20/2025 6:16 AM CDT - 02/20/2025 12:47 PM CDT Emergency [address] [address] Erwin Brown MD Nausea and vomiting, unspecified vomiting type (Primary Dx); Fall, initial encounter; Acute nonintractable headache, unspecified headache type Discharge Disposition: Discharge to home or self care 02/18/2025 Results Follow-Up [facility] [address] [place] [address] Azucena Dickinson PA XR Spine Thoracic 2 Views, XR Ribs Left 2 Views, XR Spine Lumbar 4 or More Views, Additional followed-up results: 2 02/17/2025 4:00 PM CDT - 02/17/2025 11:59 PM CDT Hospital Encounter [facility] [address] [place] [id number] Lumbar pain; Acute left-sided thoracic back pain; Contusion of left knee, initial encounter; Pain in rib Discharge Disposition: Discharge to home or self care 02/17/2025 1:15 PM CDT Office Visit [facility] [address] [place] [address] Azucena Dickinson PA Contusion of left knee, initial encounter (Primary Dx); Acute left-sided thoracic back pain; Lumbar pain; Pain in rib 02/17/2025 Nurse Triage [facility] [address] [place] [address] Сергей Cunningham MD from Last 3 Months Immunizations Immunization Administration Dates Next Due Influenza, Quadrivalent, Hig h Dose, Preservative Free, Intrr 10/14/2023,07/26/2022,06/16/2020 Influenza, Quadrivalent, Spl it, Preservative Free, Intramuscular 07/17/2018,07/05/2017 Influenza, Trivalent, Adjuva nted, Intramuscular 08/07/2019 Influenza, Trivalent, IM (MDV) 09/16/2014 Influenza, Unspecified 02/17/2025(Deferr ed: Patient decision),11/06/2024(Deferred: Patient decision),07/17/2018,08/18/2011 Pfizer SARS-CoV-2 Monovalent Vaccination (12+ Yrs) PURPLE 10/29/2020,10/08/2020 Pneumococcal Conjugate PCV 13 10/31/2018 Pneumococcal Polysaccharide PPV23 2019,08/21/2019,09/16/2014,08/18 RSV Vaccine, Pref, Recombina nt, Subunit, Adjuvanted, PF, IM (Arexvy) 10/14/2023 Surgical History Surgery Date Site/Laterality Comments THUMB FUSION 08/21/1995 - 08/20/1996 Right CARPAL TUNNEL RELEASE 08/21/1993 - 08/20/1994 Right KNEE SURGERY 08/21/1989 - 08/20/1990 Bilateral TONSILLECTOMY 08/21/1959 - 08/20/1960 HYSTERECTOMY 08/21/1980 - 08/20/1981 BREAST BIOPSY 08/21/1982 - 08/20/1983 Bilateral markers on both CORONARY STENT PLACEMENT 07/16/2018 x 2 CARDIAC CATHETERIZATION 07/16/2018 VERTEBRAL AUGMENTATION 10/12/2022 N/A T12- cement in spine COLONOSCOPY ESOPHAGOGASTRODUODENOSCOPY WRIST FRACTURE SURGERY Right fixed with external [place] Medical History Medical History Date Comments Essential hypertension Asthma Overactive bladder Allergic rhinitis Seizure disorder (HCC) placed on seizure medication r/t strokes History of CVA (cerebrovascular accident) Right side weakness Expressive aphasia GERD (gastroesophageal reflux disease) Dysphagia Colon polyp Diverticulosis CKD (chronic kidney disease) stage 3, GFR 30-59 ml/min (HCC) right kidney cyst Stroke (HCC) 2 strokes, right sided weakness CHF (congestive heart failure) (HCC) Hyperlipidemia Sleep apnea PONV (postoperative nausea and vomiting) Anemia Family History Medical History Relation Name Comments Heart disease Brother 1 50 yrs old Lung cancer Brother 2 Heart disease Father 82 yrs old Breast cancer Maternal Grandmother Breast cancer Mother Colon cancer Mother Heart disease Mother Breast cancer Mother's Sister 1 Breast cancer Mother's Sister 2 Breast cancer Mother's Sister 3 Breast cancer Mother's Sister 4 Breast cancer Mother's Sister 5 Breast cancer Mother's Sister 6 Breast cancer Mother's Sister 7 CVA Other Cancer Other Diabetes Other Heart disease Other Hypertension Other Heart disease Sister 54 yrs olf Relation Name Status Comments Brother 1 Brother 2 Father Maternal Grandmother Mother Alive Mother's Sister 1 Mother's Sister 2 Mother's Sister 3 Mother's Sister 4 Mother's Sister 5 Mother's Sister 6 Mother's Sister 7 Other Sister Social History Tobacco Use Types Packs/Day Years Used Date Smoking Tobacco: Former Cigarettes Q uit: 1984 Smokeless Tobacco: Never Tobacco Cessation:Counseling Given: Not Answered [...] materials from doctor or pharmacy Never 05/14/2024 [facility] Utilities Answer Date Recorded In the past 12 months has th [employer], gas, oil, or water [employer] threatened to shut off services in your [...] often do you attend chur ch or lutheran services? 1 to 4 times per year 04/15/2024 Do you belong to any clubs o r organizations such as evangelical groups, unions, fraternal or athletic groups, or [...] any time in the past 12 m [facility], were you homeless or living in a intermediate (including now)? No 04/15/2024 Personal Safety Answer Date Recorded Have you ever been in or are you currently in a harmful physical or emotional relationship or is someone making you feel afraid or unsafe? Denies 02/20/2025 Comments No Sex and Gender Information Value Date Recorded Sex Assigned at Not on file Legal Sex Female 7:20 PM JAIL OFFICER Gender Identity Female 08/19/2022 6:55 AM JAIL OFFICER Sexual Orientation Not on file Obstetrics History Para Term AB IAB SAB Ectopic Multiple Livin g Live Births 2 2 2 Date Outcome GA Total Labor Labor/2nd/3rd Weight Sex Type Anes PTL Ynes A1 A5 Name Clin Term Term Last Filed Vital Signs Vital Sign Reading Time Taken Comments Blood Pressure 137/85 02/25/2025 8:41 AM CDT Pulse 81 02/25/2025 8:41 AM CDT Temperature 36.3 C (97.3 F) 02/25/2025 8:41 AM CDT Respiratory Rate 22 02/25/2025 8:41 AM CDT Oxygen Saturation 99% 02/25/2025 8:41 AM CDT Inhaled Oxygen Concentration - - Weight 72.6 kg (160 lb) 02/20/2025 6:24 AM CDT Height 170.2 cm (5' 7.01) 02/17/2025 1:42 PM CD T Body Mass Index 25.05 02/17/2025 1:42 PM CDT Plan of Treatment Health Maintenance Due Date Last Done Comments Hepatitis C Screening 1955 DTaP/Tdap/Td Vaccine (1 - Tdap) 1964 Hepatitis B Screening 1971 Zoster Vaccine (1 of 2) 2003 Covid-19 Vaccine (3 - 2023-2 5 season) 2024 10/29/2020, 10/08/2020 Breast Cancer Screening-Mammogram 02/12/2025 02/13/2024, 12/02/2022, 12/02/2022, Additional history exists Well Visit 65+ 03/13/2025 03/13/2024, 01/20, 01/24/2022, Additional history exists Influenza Vaccine (#1) 2025 , 07/26/2022, 06/16/2020, Additional history exists Osteoporosis Screening-Bone Density Scan 09/05/2025 09/05/2023, 09/05/2023, 07/05/2021, Additional history exists Depression Screening 10/03/2025 10/03/2024, 03/13/2024, 08/24/2023, Additional history exists Fall Risk Assessment 10/03/2025 10/03/2024, 05/17/2024, 03/13/2024, Additional history exists Colon Cancer Screening-Colonoscopy 11/02/2033 11/03/2023, 11/19/2019, 09/19/2017 Pneumococcal vaccine 65+ Completed 020, 08/21/2019, 10/31/2018, Additional history exists Colon Cancer Screening-CT Colonography Discontinued 04/14/2024, 11/03/2023, 11/19/2019, Additional history exists Colon Cancer Screening-DNA Stool Discontinued 04/14/2024, 11/03/2023, 11/19/2019, Additional history exists Colon Cancer Screening-FIT Discontinued 04/14, 11/03/2023, 11/19/2019, Additional history exists Colon Cancer Screening-Sigmoidoscopy Discontinued 04/14/2024, 11/03/2023, 11/19/2019, Additional history exists Medical Devices Implanted Type Area Rigging And Controls Aircraft Mechanic Device Identifier Shelf Expiration Date Model / Serial / Lot [employer] Avamax Od13 Ga L10 Mm Balloon Tray Bone Cement [id number] - [id number] - [id number] Implanted:Qty: 1 on 10/12/[address] [facility] [place] Bone [employer]ement [employer] 06/20/2024 [id number] / [id number] / [id number] Description:BJ VERTAPLE X HV RADIOPAQUE BONE CEMENT [employer] Vertaplex Hv Autoplex Without Needle Delivery System Kit Bone [id number] - [id number] - [id number] Implanted:Qty: 1 on 10/12/[address] [facility] [place] Other - see comments [employer] 08/21/2025 [id number] / [id number] / [id number] Description:BJ AUTOPLEX SYSTEM WITHOUT NEEDLES Procedures Procedure Name Priority Date/Time Associated Diagnosis Comments MRI LUMBAR SPINE WO CONTRAST Schedule Routine, Read Routine (OP Routine) 02/26/2025 8:29 PM CDT Radiculopathy, lumbar region Bulge of lumbar disc without myelopathy Intractable low back pain TROPONIN T HIGH-SENSITIVITY 2-HOUR Timed 02/20/2025 9:[address] RECON THORACIC AND LUMBAR SPINE WO CONTRAST ED 02/20/2025 8:[address] CHEST ABDOMEN PELVIS W CONTRAST ED 02/20/2025 8:[address] CERVICAL SPINE WO CONTRAST ED 02/20/2025 8:[address] HEAD WO CONTRAST ED 02/20/2025 8 :37 AM CDT COMPREHENSIVE METABOLIC PANEL STAT 02/20/2025 7:32 AM CDT EGFR STAT 02/20/2025 7:32 AM CDT DIFFERENTIAL AUTO STAT 02/20/2025 7:3 2 AM CDT TROPONIN T HIGH-SENSITIVITY SERIES (BASELINE, 2HR, 4HR, 6HR) STAT 02/20/2025 7:32 AM CDT PHOSPHORUS STAT 02/20/2025 7:32 AM CDT MAGNESIUM STAT 02/20/2025 7:32 AM CDT CBC WITH AUTO DIFFERENTIAL STAT 02/20/2025 7:32 AM CDT INFLUENZA A/B, RSV, AND COVID-19 PCR STAT 02/20/2025 7:32 AM CDT ECG 12-LEAD STAT 02/20/2025 6:22 AM CDT XR RIBS LEFT 2 VIEWS Schedule HERBIE, Read HERBIE (Appt Today, Awaiting Results) 02/17/2025 5:07 PM CDT Pain in rib XR RIBS RIGHT 2 VIEWS Schedule HERBIE, Read HERBIE (Appt Today, Awaiting Results) 02/17/2025 5:07 PM CDT Pain in rib XR KNEE LEFT 1 OR 2 VIEWS Schedule HERBIE, Read HERBIE (Appt Today, Awaiting Results) 02/17/2025 5:07 PM CDT Contusion of left knee, initial encounter XR SPINE THORACIC 2 VIEWS Schedule HERBIE, Read HERBIE (Appt Today, Awaiting Results) 02/17/2025 5:07 PM CDT Acute left-sided thoracic back pain XR SPINE LUMBAR COMPLETE 4 OR MORE VIEWS Schedule HERBIE, Read HERBIE (Appt Today, Awaiting Results) 02/17/2025 5:07 PM CDT Lumbar pain FLEXIBLE SIGMOIDOSCOPY 04/14/2024 11:51 AM CDT SCREENING MAMMOGRAM BILATERAL W BURTON Schedule Routine, Read Routine (OP Routine) 02/13/2024 11:04 AM CDT Screening mammogram, encounter for COLONOSCOPY 11/03/2023 1:40 PM CDT DEXA AXIAL SKELETON BONE DENSITY 1 OR MORE SITES Schedule Routine, Read Routine (OP Routine) 09/05/2023 8:28 AM JAIL OFFICER Postmenopausal from Last 3 Months or Most Recently Relevant to Health Maintenance Results * MRI Lumbar Spine WO Contrast [...] entirety of the spinal axis demonstrates 7 kbd-gpl-hozvfsj cervical vertebrae and 12 rib-bearing vertebrae in [...] Rigo Swartz M.D. JOSHUA T: Report ID: [id number] Reading Location: [place] [address] Procedure Note Rigo Swartz MD - 02/27/2025 [...] spine reconstructions 02/20/2025; thoracic and lumbar spine ycokosjnxl34/30/2025 and 01/19/2023; thoracic spine radiograph 11/02/2022; DEXA scan09/05/2023: Reported as osteoporosis; MRI lumbar spine without contrast 09/26/2022. FINDINGS: SEGMENTATION: Utilization of prior imaging for top downcounting of the entirety of the spinal axis demonstrates 7 opb-jil-hfkgrqf cervical vertebrae and 12 rib-bearing vertebrae in [...] Rigo Swartz M.D. JOSHUA T: Report ID: [id number] Reading Location: [place] [address] Reina Mena MD IMG MRI PROCEDURES Final Result * Troponin T high-sensitivity 2-hour (02/20/2025 9:25 AM CDT) Trop T hs 14 <=14 ng/L Comment: Interpretive Data For further hscTnT resources including the diagnostic algorithm and an aid in interpretation, copy and paste this link: https://nrl.testcatalog.org/show/hsTrop Current Interpretive Data last revised 2020. Trop T hs delta -3 ng/L ADELA Trop T hs interp Insignificant ADELA Blood 02/20/2025 9:25 AM CDT 02/20/2025 9:27 AM CDT Erwin Brown MD LAB BLOOD ORDERABLES Fi nal Result [facility] [address] [facility] [place] [address] * CT Recon Thoracic and Lumbar Spine WO Contrast (C) (02/20/2025 8:37 AM CDT) Anatomical Region Laterality Modality Spine N/A Computed Tomogra phy 02/20/2025 8:49 AM CDT Narrative 02/20/2025 9:01 AM CDT EXAM DESCRIPTION: CT RECON THORACIC AND LUMBAR SPINE WO CONTRAST (C) REASON FOR STUDY: fall, fall Fall x 3 days, headache, nausea and vomiting. 69 y.o. female presenting to the ED c/o vomiting. Patient has a past medical history as below. Patient is brought in by EMS for concerns of nausea and vomiting going on for last 24 hours. Patient states she did fall 3 days ago and was seen by her primary care doctor. Patient notes that for the last 24 hours she has had increasing headache that feels like a pounding across her head. Patient notes that she has associated nausea and vomiting. Patient notes her emesis was nonbloody nonbilious. Patient notes that she is having diffuse body aches. Hx: CVA, CKD, CHF, Diverticulosis Surg Hx: Hysterectomy, Kyphoplasty TECHNIQUE: Axial images acquired through the thoracic and lumbar spine with intravenous contrast. Images reviewed with lung, soft tissue and bone windows. Reconstructed coronal and sagittal MPR images reviewed. Images stored on PACS. Automated exposure control was used as a dose optimization technique for this examination. CONTRAST TYPE/DOSE: 100mL of IOVERSOL 350 MG IODINE/ML INTRAVENOUS SYRINGE injected via intravenous COMPARISON: CT chest abdomen pelvis same day, 02/17/2025 lumbar spine radiographs FINDINGS: Thoracic Spine: THORACIC ALIGNMENT: Normal. THORACIC VERTEBRAE: Vertebral body height well-maintained. Normal appearing marrow. THORACIC DISCS: Moderately severe degenerative change T6 through T12 with endplate sclerosis, spur formation moderate loss of disc height. THORACIC HARDWARE: None in the spine. THORACIC DISCS T1-T12: Disc heights well-maintained. No significant spinal stenosis or neuroforaminal stenosis. THORACIC OTHER: No other significant finding. Lumbar Spine: LUMBAR ALIGNMENT: Normal. LUMBAR VERTEBRAE: Vertebral body height well-maintained. Normal appearing marrow. For the purposes report lumbar vertebra are labeled L1 through L6. LUMBAR DISCS: Disc heights well-maintained. LUMBAR HARDWARE: None in the spine. L1-2: No diffuse disc bulge or focal herniation. No significant spinal canal or neuroforaminal stenosis. L2-3: No diffuse disc bulge or focal herniation. No significant spinal canal or neuroforaminal stenosis. L3-4: No diffuse disc bulge or focal herniation. No significant spinal canal or neuroforaminal stenosis. L4-5: No diffuse disc bulge or herniation. No significant spinal osseous stenosis. Left-sided neural foramina demonstrates moderate narrowing related to facet and endplate degenerative change. L5-6: No significant osseous canal stenosis. Moderately severe bilateral neural foraminal narrowing related to facet hypertrophic change. L6-S1: No significant osseous spinal or neural foraminal stenosis. LUMBAR OTHER: No other significant finding. SACRUM: Visualized upper sacrum intact. SOFT TISSUES: No soft tissue masses. OTHER: No other significant finding. IMPRESSION: 1. No acute thoracic or lumbar spine abnormality. 2. Moderately severe degenerative changes as above. 3. For the purposes of this report lumbar vertebra are labeled L1 through L6. THIS IS AN ELECTRONICALLY VERIFIED FINAL REPORT 02/20/2025 9:01 AM - Electronically signed by Steve GOLD T: Report ID: [id number] Reading Location: [place] [address] Procedure Note Steve Rodriguez MD - 02/20/2025 EXAM DESCRIPTION: CT RECON THORACIC AND LUMBAR SPINE WO CONTRAST (C) REASON FOR STUDY: fall, fall Fall x 3 days, headache, nausea and vomiting. 69 y.o. female presentingto the ED c/o vomiting. Patient has a past medical history as below.Patient is brought in by EMS for concerns of nausea and vomiting going on for last 24 hours. Patient states she did fall 3 days ago and was seen by herprimary care doctor. Patient notes that for the last 24 hours she has hadincreasing headache that feels like a pounding across her head. Patient notes thatshe has associated nausea and vomiting. Patient notes her emesis wasnonbloody nonbilious. Patient notes that she is having diffuse body aches. Hx: CVA, CKD, CHF, Diverticulosis Surg Hx: Hysterectomy, Kyphoplasty TECHNIQUE: Axial images acquired through the thoracic and lumbar spinewith intravenous contrast. Images reviewed with lung, soft tissue and bone windows. Reconstructed coronal and sagittal MPR images reviewed. Images stored on PACS. Automated exposure control was used as a dose optimization technique for this examination. CONTRAST TYPE/DOSE: 100mL of IOVERSOL 350 MG IODINE/ML INTRAVENOUS SYRINGE injected via intravenous COMPARISON: CT chest abdomen pelvis same day, 02/17/2025 lumbar spine radiographs FINDINGS: Thoracic Spine: THORACIC ALIGNMENT: Normal. THORACIC VERTEBRAE: Vertebral body height well-maintained. Normalappearing marrow. THORACIC DISCS: Moderately severe degenerative change T6 through T12 with endplate sclerosis, spur formation moderate loss of disc height. THORACIC HARDWARE: None in the spine. THORACIC DISCS T1-T12: Disc heights well-maintained. No significantspinal stenosis or neuroforaminal stenosis. THORACIC OTHER: No other significant finding. Lumbar Spine: LUMBAR ALIGNMENT: Normal. LUMBAR VERTEBRAE: Vertebral body height well-maintained. Normal appearing marrow. For the purposes report lumbar vertebra are labeled L1 through L6. LUMBAR DISCS: Disc heights well-maintained. LUMBAR HARDWARE: None in the spine. L1-2: No diffuse disc bulge or focal herniation. No significant spinalcanal or neuroforaminal stenosis. L2-3: No diffuse disc bulge or focal herniation. No significant spinalcanal or neuroforaminal stenosis. L3-4: No diffuse disc bulge or focal herniation. No significant spinalcanal or neuroforaminal stenosis. L4-5: No diffuse disc bulge or herniation. No significant spinal osseous stenosis. Left-sided neural foramina demonstrates moderate narrowingrelated to facet and endplate degenerative change. L5-6: No significant osseous canal stenosis. Moderately severe bilateral neural foraminal narrowing related to facet hypertrophic change. L6-S1: No significant osseous spinal or neural foraminal stenosis. LUMBAR OTHER: No other significant finding. SACRUM: Visualized upper sacrum intact. SOFT TISSUES: No soft tissue masses. OTHER: No other significant finding. IMPRESSION: 1. No acute thoracic or lumbar spine abnormality. 2. Moderately severe degenerative changes as above. 3. For the purposes of this report lumbar vertebra are labeled [id number] L6. THIS IS AN ELECTRONICALLY VERIFIED FINAL REPORT 02/20/2025 9:01 AM - Electronically signed by Steve Rodriguez M.D. RB T: Report ID: [id number] Reading Location: [id number] Erwin Brown MD IMG CT PROCEDURES Final Result * CT Chest Abdomen Pelvis W Contrast (02/20/2025 8:37 AM CDT) Anatomical Region Laterality Modality Body N/A Computed Tomogra phy 02/20/2025 9:01 AM CDT Narrative 02/20/2025 9:11 AM CDT EXAM DESCRIPTION: CT CHEST ABDOMEN PELVIS W CONTRAST REASON FOR STUDY: fall, fall, bilateral rib pain Fall x 3 days, headache, nausea and vomiting. 69 y.o. female presenting to the ED c/o vomiting. Patient has a past medical history as below. Patient is brought in by EMS for concerns of nausea and vomiting going on for last 24 hours. Patient states she did fall 3 days ago and was seen by her primary care doctor. Patient notes that for the last 24 hours she has had increasing headache that feels like a pounding across her head. Patient notes that she has associated nausea and vomiting. Patient notes her emesis was nonbloody nonbilious. Patient notes that she is having diffuse body aches. Hx: CVA, CKD, CHF, Diverticulosis Surg Hx: Hysterectomy, Kyphoplasty, Coronary Stent x2 TECHNIQUE: CT scan of the chest, abdomen, and pelvis performed with intravenous and without oral contrast using helical scanning technique with dynamic intravenous contrast injection. Reconstructed coronal and sagittal MPR images reviewed. All images stored on PACS. Automated exposure control was used as a dose optimization technique for this examination. CONTRAST TYPE/DOSE: 100mL of IOVERSOL 350 MG IODINE/ML INTRAVENOUS SYRINGE injected via intravenous COMPARISON: 04/12/2024 CT abdomen pelvis FINDINGS: CHEST LUNGS: No nodules or masses. No pneumonia. PLEURA: No effusion. No pneumothorax. MEDIASTINUM/DEEP: No identified masses or abnormal nodes. Moderate-sized hiatal hernia unchanged. HEART: Enlarged. Small pericardial effusion. Coronary arterial calcification. VASCULATURE CHEST: No thoracic aortic aneurysm or dissection. AXILLA: No adenopathy. CHEST WALL: No masses. No subcutaneous air. HARDWARE/LINES/TUBES: None. MUSCULOSKELETAL CHEST: No significant abnormality. ABDOMEN/PELVIS LIVER: Normal size. 1 cm hypodensity right lobe most suggestive of simple cysts and unchanged from 2023. GALLBLADDER: Normally distended BILE DUCTS: No intrahepatic or extrahepatic ductal dilatation. SPLEEN: Normal size. No focal lesions. PANCREAS: No identified cystic or solid masses. No significant calcifications. No adjacent inflammation or peripancreatic fluid collections. Pancreatic duct not dilated. ADRENALS: Normal. KIDNEYS/URINARY TRACT: No obstructing stone or hydronephrosis. Hydroureter. Multiple cortical hypodensities most suggestive of cysts and generally similar to previous. Left kidney lower pole demonstrates a 2.0 cm mixed density lesion that is generally unchanged from 04/12/2024. Proteinaceous cyst is likely. Right kidney demonstrates a medial midpole 2.9 cm mixed density lesion also generally similar to previous, likely proteinaceous cysts. Exact nature uncertain. Urinary bladder is unremarkable. GI: No dilated bowel loops. No obvious wall thickening. Appendix is not visualized. No significant diverticular disease. PERITONEUM: No ascites or free air. RETROPERITONEUM: No mass or adenopathy. REPRODUCTIVE: No significant abnormality. VASCULATURE ABDOMEN: No abdominal aortic aneurysm. MUSCULOSKELETAL ABDOMEN PELVIS: No acute finding. OTHER: No significant abnormality. IMPRESSION: 1. No acute abnormality of the chest abdomen or pelvis. 2. Multiple probable renal cysts are generally similar to previous. 3. 1 cm hypodensity right lobe of liver likely represents a cyst and is unchanged from previous. 4. Moderate-sized hiatal hernia unchanged. THIS IS AN ELECTRONICALLY VERIFIED FINAL REPORT 02/20/2025 9:11 AM - Electronically signed by Steve GOLD T: Report ID: [id number] Reading Location: [place] [address] Procedure Note Steve Rodriguez MD - 02/20/2025 EXAM DESCRIPTION: CT CHEST ABDOMEN PELVIS W CONTRAST REASON FOR STUDY: fall, fall, bilateral rib pain Fall x 3 days, headache, nausea and vomiting. 69 y.o. female presentingto the ED c/o vomiting. Patient has a past medical history as below.Patient is brought in by EMS for concerns of nausea and vomiting going on for last 24 hours. Patient states she did fall 3 days ago and was seen by herprimary care doctor. Patient notes that for the last 24 hours she has hadincreasing headache that feels like a pounding across her head. Patient notes thatshe has associated nausea and vomiting. Patient notes her emesis wasnonbloody nonbilious. Patient notes that she is having diffuse body aches. Hx: CVA, CKD, CHF, Diverticulosis Surg Hx: Hysterectomy, Kyphoplasty,Coronary Stent x2 TECHNIQUE: CT scan of the chest, abdomen, and pelvis performed with intravenous and without oral contrast using helical scanning techniquewith dynamic intravenous contrast injection. Reconstructed coronal and sagittalMPR images reviewed. All images stored on PACS. Automated exposure control was used as a dose optimization technique for this examination. CONTRAST TYPE/DOSE: 100mL of IOVERSOL 350 MG IODINE/ML INTRAVENOUS SYRINGE injected via intravenous COMPARISON: 04/12/2024 CT abdomen pelvis FINDINGS: CHEST LUNGS: No nodules or masses. No pneumonia. PLEURA: No effusion. No pneumothorax. MEDIASTINUM/DEEP: No identified masses or abnormal nodes. Moderate-sized hiatal hernia unchanged. HEART: Enlarged. Small pericardial effusion. Coronary arterial calcification. VASCULATURE CHEST: No thoracic aortic aneurysm or dissection. AXILLA: No adenopathy. CHEST WALL: No masses. No subcutaneous air. HARDWARE/LINES/TUBES: None. MUSCULOSKELETAL CHEST: No significant abnormality. ABDOMEN/PELVIS LIVER: Normal size. 1 cm hypodensity right lobe most suggestive ofsimple cysts and unchanged from 2023. GALLBLADDER: Normally distended BILE DUCTS: No intrahepatic or extrahepatic ductal dilatation. SPLEEN: Normal size. No focal lesions. PANCREAS: No identified cystic or solid masses. No significant calcifications. No adjacent inflammation or peripancreatic fluidcollections. Pancreatic duct not dilated. ADRENALS: Normal. KIDNEYS/URINARY TRACT: No obstructing stone or hydronephrosis.Hydroureter. Multiple cortical hypodensities most suggestive of cysts and generally similar to previous. Left kidney lower pole demonstrates a 2.0 cm mixed density lesion that is generally unchanged from 04/12/2024. Proteinaceous cyst is likely. Right kidney demonstrates a medial midpole 2.9 cm mixed density lesionalso generally similar to previous, likely proteinaceous cysts. Exact nature uncertain. Urinary bladder is unremarkable. GI: No dilated bowel loops. No obvious wall thickening. Appendix is not visualized. No significant diverticular disease. PERITONEUM: No ascites or free air. RETROPERITONEUM: No mass or adenopathy. REPRODUCTIVE: No significant abnormality. VASCULATURE ABDOMEN: No abdominal aortic aneurysm. MUSCULOSKELETAL ABDOMEN PELVIS: No acute finding. OTHER: No significant abnormality. IMPRESSION: 1. No acute abnormality of the chest abdomen or pelvis. 2. Multiple probable renal cysts are generally similar to previous. 3. 1 cm hypodensity right lobe of liver likely represents a cyst and is unchanged from previous. 4. Moderate-sized hiatal hernia unchanged. THIS IS AN ELECTRONICALLY VERIFIED FINAL REPORT 02/20/2025 9:11 AM - Electronically signed by Steve GOLD T: Report ID: [id number] Reading Location: [place] [address] Erwin Brown MD IMG CT PROCEDURES Final Result * CT Cervical Spine WO Contrast (02/20/2025 8:37 AM CDT) Anatomical Region Laterality Modality Spine N/A Computed Tomogra phy 02/20/2025 9:11 AM CDT Narrative 02/20/2025 9:16 AM CDT EXAM DESCRIPTION: CT CERVICAL SPINE WO CONTRAST REASON FOR STUDY: fall, fall Fall x 3 days, headache, nausea and vomiting. 69 y.o. female presenting to the ED c/o vomiting. Patient has a past medical history as below. Patient is brought in by EMS for concerns of nausea and vomiting going on for last 24 hours. Patient states she did fall 3 days ago and was seen by her primary care doctor. Patient notes that for the last 24 hours she has had increasing headache that feels like a pounding across her head. Patient notes that she has associated nausea and vomiting. Patient notes her emesis was nonbloody nonbilious. Patient notes that she is having diffuse body aches. Hx: CVA Surg Hx: Tonsillectomy TECHNIQUE: Axial images through the cervical spine with sagittal and coronal reformatted images. Automated exposure control was used as a dose optimization technique for this examination. COMPARISON: 08/16/2022 FINDINGS: ALIGNMENT: Normal. VERTEBRAE: No fracture. Vertebral body heights well-maintained. The right-sided lamina C2 demonstrates 1.1 cm lucent focus similar to 2022 suggesting process. DISCS: Moderate degenerative changes with endplate irregularities most notable C3 through C5. HARDWARE: None in the spine. INDIVIDUAL DISC LEVELS: No significant osseous spinal canal or neural foraminal stenosis. UPPER THORACIC: Incompletely imaged. No significant osseous spinal stenosis or osseous neural foraminal stenosis. SKULL BASE: No significant finding. LUNG APICES: No significant abnormality. NECK SOFT TISSUES: Right lobe of thyroid demonstrates a 1.3 cm hypodense lesion unchanged from 2021 suggesting benign process. OTHER: No other significant findings. IMPRESSION: 1. No acute C-spine abnormality. 2. Moderate degenerative changes. 3. 1.3 cm hypodense lesion right lobe of thyroid unchanged from 202 suggesting benign process. Thyroid nodule recommendation: Based on size criteria alone, no specific follow-up imaging is indicated. If there is specific concerning laboratory or patient history, dedicated thyroid ultrasound could be considered for further evaluation. THIS IS AN ELECTRONICALLY VERIFIED FINAL REPORT 02/20/2025 9:16 AM - Electronically signed by Steve GOLD T: Report ID: [id number] Reading Location: [place] [address] Procedure Note Steve Rodriguez MD - 02/20/2025 EXAM DESCRIPTION: CT CERVICAL SPINE WO CONTRAST REASON FOR STUDY: fall, fall Fall x 3 days, headache, nausea and vomiting. 69 y.o. female presentingto the ED c/o vomiting. Patient has a past medical history as below.Patient is brought in by EMS for concerns of nausea and vomiting going on for last 24 hours. Patient states she did fall 3 days ago and was seen by herprimary care doctor. Patient notes that for the last 24 hours she has hadincreasing headache that feels like a pounding across her head. Patient notes thatshe has associated nausea and vomiting. Patient notes her emesis wasnonbloody nonbilious. Patient notes that she is having diffuse body aches. Hx:CVA Surg Hx: Tonsillectomy TECHNIQUE: Axial images through the cervical spine with sagittal andcoronal reformatted images. Automated exposure control was used as a doseoptimization technique for this examination. COMPARISON: 08/16/2022 FINDINGS: ALIGNMENT: Normal. VERTEBRAE: No fracture. Vertebral body heights well-maintained. The right-sided lamina C2 demonstrates 1.1 cm lucent focus similar to 2022 suggesting process. DISCS: Moderate degenerative changes with endplate irregularities most notable C3 through C5. HARDWARE: None in the spine. INDIVIDUAL DISC LEVELS: No significant osseous spinal canal or neural foraminal stenosis. UPPER THORACIC: Incompletely imaged. No significant osseous spinalstenosis or osseous neural foraminal stenosis. SKULL BASE: No significant finding. LUNG APICES: No significant abnormality. NECK SOFT TISSUES: Right lobe of thyroid demonstrates a 1.3 cm hypodense lesion unchanged from 2021 suggesting benign process. OTHER: No other significant findings. IMPRESSION: 1. No acute C-spine abnormality. 2. Moderate degenerative changes. 3. 1.3 cm hypodense lesion right lobe of thyroid unchanged from 2021 suggesting benign process. Thyroid nodule recommendation: Based on size criteria alone, no specific follow-up imaging is indicated. If there is specific concerning laboratoryor patient history, dedicated thyroid ultrasound could be considered forfurther evaluation. THIS IS AN ELECTRONICALLY VERIFIED FINAL REPORT 02/20/2025 9:16 AM - Electronically signed by Steve Rodriguez M.D. RB T: Report ID: [id number] Reading Location: [id number] Erwin Brown MD IMG CT PROCEDURES Final Result * CT Head WO Contrast (02/20/2025 8:37 AM CDT) Anatomical Region Laterality Modality Head and Neck N/A Computed Tomogra phy 02/20/2025 8:45 AM CDT Narrative 02/20/2025 8:49 AM CDT EXAM DESCRIPTION: CT HEAD WO CONTRAST REASON FOR STUDY: fall, fall, severe headache nausea and vomiting Fall x 3 days, headache, nausea and vomiting. 69 y.o. female presenting to the ED c/o vomiting. Patient has a past medical history as below. Patient is brought in by EMS for concerns of nausea and vomiting going on for last 24 hours. Patient states she did fall 3 days ago and was seen by her primary care doctor. Patient notes that for the last 24 hours she has had increasing headache that feels like a pounding across her head. Patient notes that she has associated nausea and vomiting. Patient notes her emesis was nonbloody nonbilious. Patient notes that she is having diffuse body aches. Hx: CVA, CKD, CHF TECHNIQUE: Axial images acquired through the brain without intravenous contrast. Images stored on PACS. Automated exposure control was used as a dose optimization technique for this examination. COMPARISON: 08/16/2022 FINDINGS: BRAIN: No hemorrhage, edema or mass effect. No recent infarct. Normal white matter. EXTRA-AXIAL SPACES: No fluid collections. No masses. CALVARIUM: No fracture. SINUSES/MASTOIDS: No fluid or mucosal thickening. ORBITS: No significant abnormality. OTHER: No other significant abnormality. IMPRESSION: No acute intracranial findings. THIS IS AN ELECTRONICALLY VERIFIED FINAL REPORT 02/20/2025 8:49 AM - Electronically signed by Steve GOLD T: Report ID: [id number] Reading Location: [id number] Procedure Note Steve Rodriguez MD - 02/20/2025 EXAM DESCRIPTION: CT HEAD WO CONTRAST REASON FOR STUDY: fall, fall, severe headache nausea and vomiting Fall x 3 days, headache, nausea and vomiting. 69 y.o. female presentingto the ED c/o vomiting. Patient has a past medical history as below.Patient is brought in by EMS for concerns of nausea and vomiting going on for last 24 hours. Patient states she did fall 3 days ago [facility] Patient notes that for the last 24 hours she has hadincreasing headache that feels like a pounding across her head. Patient notes thatshe has associated nausea and vomiting. Patient notes her emesis wasnonbloody nonbilious. Patient notes that she is having diffuse body aches. Hx: CVA, CKD, CHF TECHNIQUE: Axial images acquired through the brain without intravenous contrast. Images stored on PACS. Automated exposure control was used asa dose optimization technique for this examination. COMPARISON: 08/16/2022 FINDINGS: BRAIN: No hemorrhage, edema or mass effect. No recent infarct. Normal white matter. EXTRA-AXIAL SPACES: No fluid collections. No masses. CALVARIUM: No fracture. SINUSES/MASTOIDS: No fluid or mucosal thickening. ORBITS: No significant abnormality. OTHER: No other significant abnormality. IMPRESSION: No acute intracranial findings. THIS IS AN ELECTRONICALLY VERIFIED FINAL REPORT 02/20/2025 8:49 AM - Electronically signed by Steve GOLD T: Report ID: [id number] Reading Location: [id number] Erwin Brown MD IMG CT PROCEDURES Final Result * (ABNORMAL) Troponin T high-sensitivity series (baseline, 2hr, 4hr, 6hr) (02/20/2025 7:32 AM CDT) Trop T hs 17(H) <=14 ng/L Comment: Interpretive Data For further hscTnT resources including the diagnostic algorithm and an aid in interpretation, copy and paste this link: https://nrl.testcatalog.org/show/hsTrop Current Interpretive Data last revised 2020. Blood 02/20/2025 7:32 AM CDT 02/20/2025 7:34 AM CDT Erwin Brown MD LAB BLOOD ORDERABLES Fi nal Result Performing Organization Address [facility]/ZIP Co de Phone Number [address] [employer] [place] [address] * Influenza A/B, RSV, and COVID-19 PCR Nasopharyngeal (02/20/2025 7:32 AM CDT) [facility] COVID-19 RNA Negative Negative Influenza A RNA Negative Negative [facility] Influenza B RNA Negative Negative [facility] RSV RNA Negative Negative [facility] Comment: Interpretive data: Testing performed by [facility]. This test is performed using the [employer] Xpert Xpress CoV-2/Flu/RSV plus assay. This is a multiplex, real-time reverse transcriptase PCR assay intended for the qualitative detection of nucleic acid from SARS-CoV-2, influenza A, influenza B, and respiratory syncytial virus. This assay has been cleared by the [place] Food and Drug administration. The performance characteristics have been verified by the [facility]. Results must be considered in the clinical context, and a negative result does not rule out infection. Interpretive Data last revised 2023 Nasopharyngeal 02/20/2025 7: 32 AM CDT 02/20/2025 7:35 AM CDT Narrative ADELA - 02/20/2025 8:20 AM CDT Is the Patient experiencing symptoms consistent with COVID?->Yes Erwin Brown MD LAB MICROBIOLOGY - GENE RAL ORDERABLES Final Result Performing Organization Address City/[facility]/ZIP Co de Phone Number [address] [employer] [place] [address] * (ABNORMAL) eGFR (02/20/2025 7:32 AM CDT) Pathologist [facility] eGFR 55(L) >=60 mL/min/1. 73 m2 Comment: Interpretive Data Reference Interval Normal >/= 90 mL/min/1.73m2 Mildly decreased* 60 - 89 mL/min/1.73m2 Mildly to moderately decreased 45 - 59 mL/min/1.73m2 Moderately to severely decreased 30 - 44 mL/min/1.73m2 Severely decreased 15 - 29 mL/min/1.73m2 Kidney Failure < 15 mL/min/1.73m2 *Relative to young adult level Estimated glomerular filtration rate is determined by the 2020 CKD-EPI equation recommended by the National Kid[employer] (A Unifying Approach to GFR Estimation: Recommendations of the NKF-ASK Task Force on Reassessing the Inclusion of Race in Diagnosing Kidney Disease, JASN 2020). The CKD-EPI equation should not be used for patients with unstable renal function and has not been validated in children and those over 70. Current interpretive data was last reviewed 2021. Blood 02/20/2025 7:32 AM CDT 02/20/2025 7:34 AM CDT us Erwin Borwn MD LAB BLOOD ORDERABLES Fi nal Result [facility] [address] [facility] [place] [address] * Differential, auto (02/20/2025 7:32 AM CDT) Pathologist [facility] Neutrophil abs 6.24 1.50 - 6.50 K/cumm Imm gran abs 0.08 0.00 - 0.10 K/cumm [facility] Lymphocyte abs 1.31 0.80 - 3.30 K/cumm [facility] Monocyte abs 0.38 0.20 - 0.80 K/cumm [facility] Eosinophil abs 0.02 0.00 - 0.50 K/cumm [facility] Basophil abs 0.04 0.00 - 0.10 K/cumm [facility] Neutrophil pct 77.4 % [facility] Comment: Interpretive Data Percent cell count reference ranges are not reported, since discordance with absolute values may lead to misinterpretation of CBC data. Current Interpretive Data was last revised on 2017. Imm gran pct 1.0 % [facility] Comment: Interpretive Data Percent cell count reference ranges are not reported, since discordance with absolute values may lead to misinterpretation of CBC data. Current Interpretive Data was last revised on 2017. Lymphocyte pct 16.2 % [facility] Comment: Interpretive Data Percent cell count reference ranges are not reported, since discordance with absolute values may lead to misinterpretation of CBC data. Current Interpretive Data was last revised on 2017. Monocyte pct 4.7 % [facility] Comment: Interpretive Data Percent cell count reference ranges are not reported, since discordance with absolute values may lead to misinterpretation of CBC data. Current Interpretive Data was last revised on 2017. Eosinophil pct 0.2 % [facility] Comment: Interpretive Data Percent cell count reference ranges are not reported, since discordance with absolute values may lead to misinterpretation of CBC data. Current Interpretive Data was last revised on 2017. Basophil pct 0.5 % [facility] Comment: Interpretive Data Percent cell count reference ranges are not reported, since discordance with absolute values may lead to misinterpretation of CBC data. Current Interpretive Data was last revised on 2017. Blood 02/20/2025 7:32 AM CDT 02/20/2025 7:34 AM CDT Erwin Brown MD LAB BLOOD ORDERABLES Fi nal Result [facility] [address] [facility] [place] [address] * (ABNORMAL) CBC with auto differential (02/20/2025 7:32 AM CDT) WBC 8.07 3.80 - 9.90 K/cumm Hgb 13.0 11.9 - 15.5 g/dL [facility] Hct 38.5 35.6 - 45.5 % [facility] Plt 265 150 - 400 K/cumm [facility] MPV 8.6(L) 9.1 - 12.3 fL [facility] RBC 4.37 3.90 - 5.20 M/cumm [facility] MCV 88.1 81.3 - 96.4 fL [facility] MCH 29.7 27.1 - 33.3 pg [facility] MCHC 33.8 32.3 - 35.7 g/dL [facility] RDW CV 12.6 11.1 - 14.9 % [facility] RDW SD 40.8 35.7 - 48.1 fL [facility] NRBC abs 0.00 0.00 - 0.01 K/cumm [facility] Blood Venous blood specimen / Unknown 02/20/2025 7:32 AM CDT 02/20/2025 7:34 AM CDT Erwin Brown MD LAB BLOOD ORDERABLES Fi nal Result Performing Organization Address City/[facility] Co de Phone Number [address] [employer] [place] [address] * Phosphorus (02/20/2025 7:32 AM CDT) Phosphorus, pl 3.1 2.3 - 4.5 mg/dL Blood 02/20/2025 7:32 AM CDT 02/20/2025 7:34 AM CDT Erwin Brown MD LAB BLOOD ORDERABLES Fi nal Result Performing Organization Address City/[facility] Co de Phone Number [address] [place] [address] * Magnesium (02/20/2025 7:32 AM CDT) Magnesium 1.9 1.4 - 2.5 mg/dL Blood 02/20/2025 7:32 AM CDT 02/20/2025 7:34 AM CDT Erwin Brown MD LAB BLOOD ORDERABLES Fi nal Result [facility] [address] [facility] [place] [address] * (ABNORMAL) Comprehensive metabolic panel (02/20/2025 7:32 AM CDT) Sodium 138 135 - 145 mmol/L Potassium, pl 4.5 3.3 - 4.9 mmol/L [facility] Comment:Hemolyzed; Potassium value may be falsely elevated by as much as 1.0 mmol/L. Suggest redraw and reanalysis. Chloride 106 97 - 110 mmol/L [facility] CO2 18(L) 22 - 32 mmol/L [facility] Anion gap 14 2 - 15 mmol/L [facility] BUN 21 6 - 25 mg/dL [facility] Creatinine 1.08 0.60 - 1.10 mg/dL [facility] Glucose 110 70 - 199 mg/dL [facility] Comment: Interpretive Data Fasting glucose >/= 126 mg/dl is diagnostic for diabetes. Fasting is defined as no caloric intake for at least 8 hours. Fasting glucose between 100 mg/dl to 125 mg/dl is diagnostic of prediabetes. In a patient with classic symptoms of hyperglycemia or hyperglycemic crisis, a random glucose >/= 200 mg/dl is diagnostic for diabetes. In the absence of unequivocal hyperglycemia, results should be confirmed by repeat testing. The classification and Diagnosis of Diabetes Diabetes Care 2021; 46: S19-S40. Current interpretive data was last revised 2022. Calcium 9.4 8.5 - 10.3 mg/dL [facility] Bilirubin, total 0.6 0.1 - 1.2 mg/dL [facility] Protein, pl 6.8 6.5 - 8.5 g/dL [facility] Albumin 4.2 3.5 - 5.0 g/dL [facility] Alk phos 68 40 - 130 Units/L [facility] ALT 11 7 - 45 Units/L [facility] AST 25 10 - 45 Units/L [facility] Comment:Hemolyzed; result ma y be falsely elevated Blood 02/20/2025 7:32 AM CDT 02/20/2025 7:34 AM CDT Erwin Brown MD LAB BLOOD ORDERABLES Fi nal Result Performing Organization Address [facility]/ZIP Co de Phone Number ADELA [facility] [place] [address] * ECG 12 lead (02/20/2025 6:22 AM CDT) [facility] Ventricular Rate EKG/Min 99 BPM [facility] Atrial Rate 99 BPM [facility] IN-Interval (MSEC) 164 ms [facility] QRS-Interval (MSEC) 102 ms [facility] QT-Interval (MSEC) 388 ms [facility] QTc 497 ms [facility] P [place] 55 degrees [facility] R [place] 19 degrees [facility] T [place] 53 degrees [facility] Diagnosis Poor data quality, interpretation may be adversely affected Normal sinus rhythm When compared with ECG of 03-NOV-2023 12:11, Premature atrial complexes are no longer Present T wave inversion no longer evident in Inferior leads Confirmed by LILIYA MAURICE M.D. ([id number]) on 02/20/2025 2:41:54 PM [facility] 02/20/2025 6:22 AM CDT 02/20/2025 2:41 PM CDT Erwin Brown MD ECG ORDERABLES Final R esult Performing Organization Address [facility] Co de Phone Number [facility] * XR Knee Left 1 or 2 Views (02/17/2025 5:07 PM CDT) Anatomical Region Laterality Modality Lower Extremities, Knee Left Computed Radiography 02/17/2025 8:33 PM CDT Narrative 02/17/2025 8:39 PM CDT ORDERING MD: : OrderingProviderFirstName : OrderingProviderLastName ATTENDING MD: : AttendingDoctorFirstName : AttendingctorGenarotName SERVICE TYPE: : PatientClass ORD #: : AccessionNumber EXAM DESCRIPTION: 1. XR SPINE LUMBAR 4 OR MORE VIEWS; 2. XR SPINE THORACIC 2 VIEWS; 3. XR KNEE LEFT 1 OR 2 VIEWS; 4. XR RIBS RIGHT 2 VIEWS; 5. XR RIBS LEFT 2 VIEWS REASON FOR STUDY: s/p injury. Back and left knee pain. chest wall pain, s/p injury Pt has complaints after ground level fall while gardening x3days ago, pain is worse in upper back between shoulder blades FINDINGS: Five views lumbar spine, two views thoracic spine, two views each ribs, and two views left knee submitted with comparison 04/12/2024, 01/19/2023. Ribs: No acute displaced rib fractures. Alignment is normal. No evidence of pulmonary contusion or pneumothorax. Thoracic spine: No acute fracture. Mild multilevel midthoracic degenerative disc disease. Inferior thoracic diffuse idiopathic skeletal hyperostosis. Lumbar spine: No acute fracture. L1 cementoplasty cementoplasties has been performed. Lumbarized S1 vertebra is noted. Minimal L3-L4 and L5-S1 degenerative disc disease. Moderate to severe inferior lumbar facet osteoarthritis. Arterial atherosclerosis is present. Left knee: No acute fracture. Alignment is normal. Mild medial and patellofemoral bicompartmental left knee osteoarthritis. Small knee effusion. Arterial atherosclerosis noted. IMPRESSION: 1. No acute displaced rib fractures. 2. No acute thoracic or lumbar spine fracture. Chronic L1 compression deformity status post cementoplasty. 3. Mild multilevel midthoracic degenerative disc disease with inferior thoracic diffuse idiopathic skeletal hyperostosis. 4. Minimal L3-L4 and L5-S1 degenerative disc disease with moderate to severe inferior lumbar facet osteoarthritis. 5. Mild medial and patellofemoral bicompartmental left knee osteoarthritis with a small effusion. THIS IS AN ELECTRONICALLY VERIFIED FINAL REPORT 02/17/2025 8:39 PM - Electronically signed by Tomer Reese M.D. T: Report ID: [id number] Reading Location: [place] [id number] Procedure Note Tomer Reese MD - 02/17/2025 ORDERING MD: : OrderingProviderFirstName : OrderingProviderLastName ATTENDING MD: : AttendingDoctorFirstName : AttendingctorYashira SERVICE TYPE: : PatientClass ORD #: : AccessionNumber EXAM DESCRIPTION: 1. XR SPINE LUMBAR 4 OR MORE VIEWS; 2. XR SPINE THORACIC 2 VIEWS; 3. XR KNEE LEFT 1 OR 2 VIEWS; 4. XR RIBS RIGHT 2 VIEWS; 5. XR RIBS LEFT 2 VIEWS REASON FOR STUDY: s/p injury. Back and left knee pain. chest wall pain, s/p injury Pt has complaints after ground level fall while gardening x3days ago, painis worse in upper back between shoulder blades FINDINGS: Five views lumbar spine, two views thoracic spine, two viewseach ribs, and two views left knee submitted with comparison 04/12/2024,01/19/2023. Ribs: No acute displaced rib fractures. Alignment is normal. No evidence of pulmonary contusion or pneumothorax. Thoracic spine: No acute fracture. Mild multilevel midthoracic degenerative disc disease. Inferior thoracic diffuse idiopathic skeletal hyperostosis. Lumbar spine: No acute fracture. L1 cementoplasty cementoplasties has been performed. Lumbarized S1 vertebra is noted. Minimal L3-L4 and L5-S1 degenerativedisc disease. Moderate to severe inferior lumbar facet osteoarthritis.Arterial atherosclerosis is present. Left knee: No acute fracture. Alignment is normal. Mild medial and patellofemoral bicompartmental left knee osteoarthritis. Small knee effusion. Arterial atherosclerosis noted. IMPRESSION: 1. No acute displaced rib fractures. 2. No acute thoracic or lumbar spine fracture. Chronic L1 compression deformity status post cementoplasty. 3. Mild multilevel midthoracic degenerative disc disease with inferior thoracic diffuse idiopathic skeletal hyperostosis. 4. Minimal L3-L4 and L5-S1 degenerative disc disease with moderate tosevere inferior lumbar facet osteoarthritis. 5. Mild medial and patellofemoral bicompartmental left kneeosteoarthritis with a small effusion. THIS IS AN ELECTRONICALLY VERIFIED FINAL REPORT 02/17/2025 8:39 PM - Electronically signed by Tomer Reese M.D. T: Report ID: [id number] Reading Location: [id number] XR PROCEDURES Fin al Result * XR Spine Lumbar 4 or More Views (02/17/2025 5:07 PM CDT) Anatomical Region Laterality Modality Spine N/A Computed Radiogr aphy 02/17/2025 8:33 PM CDT Narrative 02/17/2025 8:39 PM CDT ORDERING MD: : OrderingProviderFirstName : OrderingProviderLastName ATTENDING MD: : AttendingDoctorFirstName : AttendingDoctorGenarotNamshirlene SERVICE TYPE: : PatientClass ORD #: : AccessionNumber EXAM DESCRIPTION: 1. XR SPINE LUMBAR 4 OR MORE VIEWS; 2. XR SPINE THORACIC 2 VIEWS; 3. XR KNEE LEFT 1 OR 2 VIEWS; 4. XR RIBS RIGHT 2 VIEWS; 5. XR RIBS LEFT 2 VIEWS REASON FOR STUDY: s/p injury. Back and left knee pain. chest wall pain, s/p injury Pt has complaints after ground level fall while gardening x3days ago, pain is worse in upper back between shoulder blades FINDINGS: Five views lumbar spine, two views thoracic spine, two views each ribs, and two views left knee submitted with comparison 04/12/2024, 01/19/2023. Ribs: No acute displaced rib fractures. Alignment is normal. No evidence of pulmonary contusion or pneumothorax. Thoracic spine: No acute fracture. Mild multilevel midthoracic degenerative disc disease. Inferior thoracic diffuse idiopathic skeletal hyperostosis. Lumbar spine: No acute fracture. L1 cementoplasty cementoplasties has been performed. Lumbarized S1 vertebra is noted. Minimal L3-L4 and L5-S1 degenerative disc disease. Moderate to severe inferior lumbar facet osteoarthritis. Arterial atherosclerosis is present. Left knee: No acute fracture. Alignment is normal. Mild medial and patellofemoral bicompartmental left knee osteoarthritis. Small knee effusion. Arterial atherosclerosis noted. IMPRESSION: 1. No acute displaced rib fractures. 2. No acute thoracic or lumbar spine fracture. Chronic L1 compression deformity status post cementoplasty. 3. Mild multilevel midthoracic degenerative disc disease with inferior thoracic diffuse idiopathic skeletal hyperostosis. 4. Minimal L3-L4 and L5-S1 degenerative disc disease with moderate to severe inferior lumbar facet osteoarthritis. 5. Mild medial and patellofemoral bicompartmental left knee osteoarthritis with a small effusion. THIS IS AN ELECTRONICALLY VERIFIED FINAL REPORT 02/17/2025 8:39 PM - Electronically signed by Tomer Reese M.D. T: Report ID: [id number] Reading Location: [place] [address] Procedure Note Tomer Reese MD - 02/17/2025 ORDERING MD: : OrderingProviderFirstName : OrderingProJintName ATTENDING MD: : AttendingctYingirstName : AttendingMelissa SERVICE TYPE: : PatientClass ORD #: : AccessionNumber EXAM DESCRIPTION: 1. XR SPINE LUMBAR 4 OR MORE VIEWS; 2. XR SPINE THORACIC 2 VIEWS; 3. XR KNEE LEFT 1 OR 2 VIEWS; 4. XR RIBS RIGHT 2 VIEWS; 5. XR RIBS LEFT 2 VIEWS REASON FOR STUDY: s/p injury. Back and left knee pain. chest wall pain, s/p injury Pt has complaints after ground level fall while gardening x3days ago, painis worse in upper back between shoulder blades FINDINGS: Five views lumbar spine, two views thoracic spine, two viewseach ribs, and two views left knee submitted with comparison 04/12/2024,01/19/2023. Ribs: No acute displaced rib fractures. Alignment is normal. No evidence of pulmonary contusion or pneumothorax. Thoracic spine: No acute fracture. Mild multilevel midthoracic degenerative disc disease. Inferior thoracic diffuse idiopathic skeletal hyperostosis. Lumbar spine: No acute fracture. L1 cementoplasty cementoplasties has been performed. Lumbarized S1 vertebra is noted. Minimal L3-L4 and L5-S1 degenerativedisc disease. Moderate to severe inferior lumbar facet osteoarthritis.Arterial atherosclerosis is present. Left knee: No acute fracture. Alignment is normal. Mild medial and patellofemoral bicompartmental left knee osteoarthritis. Small knee effusion. Arterial atherosclerosis noted. IMPRESSION: 1. No acute displaced rib fractures. 2. No acute thoracic or lumbar spine fracture. Chronic L1 compression deformity status post cementoplasty. 3. Mild multilevel midthoracic degenerative disc disease with inferior thoracic diffuse idiopathic skeletal hyperostosis. 4. Minimal L3-L4 and L5-S1 degenerative disc disease with moderate tosevere inferior lumbar facet osteoarthritis. 5. Mild medial and patellofemoral bicompartmental left kneeosteoarthritis with a small effusion. THIS IS AN ELECTRONICALLY VERIFIED FINAL REPORT 02/17/2025 8:39 PM - Electronically signed by Tomer Reese M.D. T: Report ID: [id number] Reading Location: [place] [address] [facility] XR PROCEDURES Fin al Result * XR Spine Thoracic 2 Views (02/17/2025 5:07 PM CDT) Anatomical Region Laterality Modality Spine N/A Computed Radiogr aphy 02/17/2025 8:33 PM CDT Narrative 02/17/2025 8:39 PM CDT ORDERING MD: : OrderingProviderFirstName : OrderingProviderLastName ATTENDING MD: : AttendingDoctorFirstName : AttendingDoctorLastName SERVICE TYPE: : PatientClass ORD #: : AccessionNumber EXAM DESCRIPTION: 1. XR SPINE LUMBAR 4 OR MORE VIEWS; 2. XR SPINE THORACIC 2 VIEWS; 3. XR KNEE LEFT 1 OR 2 VIEWS; 4. XR RIBS RIGHT 2 VIEWS; 5. XR RIBS LEFT 2 VIEWS REASON FOR STUDY: s/p injury. Back and left knee pain. chest wall pain, s/p injury Pt has complaints after ground level fall while gardening x3days ago, pain is worse in upper back between shoulder blades FINDINGS: Five views lumbar spine, two views thoracic spine, two views each ribs, and two views left knee submitted with comparison 04/12/2024, 01/19/2023. Ribs: No acute displaced rib fractures. Alignment is normal. No evidence of pulmonary contusion or pneumothorax. Thoracic spine: No acute fracture. Mild multilevel midthoracic degenerative disc disease. Inferior thoracic diffuse idiopathic skeletal hyperostosis. Lumbar spine: No acute fracture. L1 cementoplasty cementoplasties has been performed. Lumbarized S1 vertebra is noted. Minimal L3-L4 and L5-S1 degenerative disc disease. Moderate to severe inferior lumbar facet osteoarthritis. Arterial atherosclerosis is present. Left knee: No acute fracture. Alignment is normal. Mild medial and patellofemoral bicompartmental left knee osteoarthritis. Small knee effusion. Arterial atherosclerosis noted. IMPRESSION: 1. No acute displaced rib fractures. 2. No acute thoracic or lumbar spine fracture. Chronic L1 compression deformity status post cementoplasty. 3. Mild multilevel midthoracic degenerative disc disease with inferior thoracic diffuse idiopathic skeletal hyperostosis. 4. Minimal L3-L4 and L5-S1 degenerative disc disease with moderate to severe inferior lumbar facet osteoarthritis. 5. Mild medial and patellofemoral bicompartmental left knee osteoarthritis with a small effusion. THIS IS AN ELECTRONICALLY VERIFIED FINAL REPORT 02/17/2025 8:39 PM - Electronically signed by Tomer GOLDBERG T: Report ID: [id number] Reading Location: [id number] Procedure Note Tomer Reese MD - 02/17/2025 ORDERING MD: : OrderingProviderFirstName : OrderingProviderLastName ATTENDING MD: : AttendingDoctorFirstName : AttendingDoctorLastName SERVICE TYPE: : PatientClass ORD #: : AccessionNumber EXAM DESCRIPTION: 1. XR SPINE LUMBAR 4 OR MORE VIEWS; 2. XR SPINE THORACIC 2 VIEWS; 3. XR KNEE LEFT 1 OR 2 VIEWS; 4. XR RIBS RIGHT 2 VIEWS; 5. XR RIBS LEFT 2 VIEWS REASON FOR STUDY: s/p injury. Back and left knee pain. chest wall pain, s/p injury Pt has complaints after ground level fall while gardening x3days ago, painis worse in upper back between shoulder blades FINDINGS: Five views lumbar spine, two views thoracic spine, two viewseach ribs, and two views left knee submitted with comparison 04/12/2024,01/19/2023. Ribs: No acute displaced rib fractures. Alignment is normal. No evidence of pulmonary contusion or pneumothorax. Thoracic spine: No acute fracture. Mild multilevel midthoracic degenerative disc disease. Inferior thoracic diffuse idiopathic skeletal hyperostosis. Lumbar spine: No acute fracture. L1 cementoplasty cementoplasties has been performed. Lumbarized S1 vertebra is noted. Minimal L3-L4 and L5-S1 degenerativedisc disease. Moderate to severe inferior lumbar facet osteoarthritis.Arterial atherosclerosis is present. Left knee: No acute fracture. Alignment is normal. Mild medial and patellofemoral bicompartmental left knee osteoarthritis. Small knee effusion. Arterial atherosclerosis noted. IMPRESSION: 1. No acute displaced rib fractures. 2. No acute thoracic or lumbar spine fracture. Chronic L1 compression deformity status post cementoplasty. 3. Mild multilevel midthoracic degenerative disc disease with inferior thoracic diffuse idiopathic skeletal hyperostosis. 4. Minimal L3-L4 and L5-S1 degenerative disc disease with moderate tosevere inferior lumbar facet osteoarthritis. 5. Mild medial and patellofemoral bicompartmental left kneeosteoarthritis with a small effusion. THIS IS AN ELECTRONICALLY VERIFIED FINAL REPORT 02/17/2025 8:39 PM - Electronically signed by Tomer Reese M.D. T: Report ID: [id number] Reading Location: [place] [address] [facility] XR PROCEDURES Fin al Result * XR Ribs Right 2 Views (02/17/2025 5:07 PM CDT) Anatomical Region Laterality Modality Rib, Chest Right Computed Radiogr aphy 02/17/2025 8:33 PM CDT Narrative 02/17/2025 8:39 PM CDT ORDERING MD: : OrderingProviderFirstName : OrderingProviderLastName ATTENDING MD: : AttendingDoctorFirstName : AttendingDoctorLastName SERVICE TYPE: : PatientClass ORD #: : AccessionNumber EXAM DESCRIPTION: 1. XR SPINE LUMBAR 4 OR MORE VIEWS; 2. XR SPINE THORACIC 2 VIEWS; 3. XR KNEE LEFT 1 OR 2 VIEWS; 4. XR RIBS RIGHT 2 VIEWS; 5. XR RIBS LEFT 2 VIEWS REASON FOR STUDY: s/p injury. Back and left knee pain. chest wall pain, s/p injury Pt has complaints after ground level fall while gardening x3days ago, pain is worse in upper back between shoulder blades FINDINGS: Five views lumbar spine, two views thoracic spine, two views each ribs, and two views left knee submitted with comparison 04/12/2024, 01/19/2023. Ribs: No acute displaced rib fractures. Alignment is normal. No evidence of pulmonary contusion or pneumothorax. Thoracic spine: No acute fracture. Mild multilevel midthoracic degenerative disc disease. Inferior thoracic diffuse idiopathic skeletal hyperostosis. Lumbar spine: No acute fracture. L1 cementoplasty cementoplasties has been performed. Lumbarized S1 vertebra is noted. Minimal L3-L4 and L5-S1 degenerative disc disease. Moderate to severe inferior lumbar facet osteoarthritis. Arterial atherosclerosis is present. Left knee: No acute fracture. Alignment is normal. Mild medial and patellofemoral bicompartmental left knee osteoarthritis. Small knee effusion. Arterial atherosclerosis noted. IMPRESSION: 1. No acute displaced rib fractures. 2. No acute thoracic or lumbar spine fracture. Chronic L1 compression deformity status post cementoplasty. 3. Mild multilevel midthoracic degenerative disc disease with inferior thoracic diffuse idiopathic skeletal hyperostosis. 4. Minimal L3-L4 and L5-S1 degenerative disc disease with moderate to severe inferior lumbar facet osteoarthritis. 5. Mild medial and patellofemoral bicompartmental left knee osteoarthritis with a small effusion. THIS IS AN ELECTRONICALLY VERIFIED FINAL REPORT 02/17/2025 8:39 PM - Electronically signed by Tomer Reese M.D. T: Report ID: [id number] Reading Location: [id number] Procedure Note Tomer Reese MD - 02/17/2025 ORDERING MD: : OrderingProviderFirstName : OrderingProviderLastName ATTENDING MD: : AttendingDoctorFirstName : AttendingDoctorLastName SERVICE TYPE: : PatientClass ORD #: : AccessionNumber EXAM DESCRIPTION: 1. XR SPINE LUMBAR 4 OR MORE VIEWS; 2. XR SPINE THORACIC 2 VIEWS; 3. XR KNEE LEFT 1 OR 2 VIEWS; 4. XR RIBS RIGHT 2 VIEWS; 5. XR RIBS LEFT 2 VIEWS REASON FOR STUDY: s/p injury. Back and left knee pain. chest wall pain, s/p injury Pt has complaints after ground level fall while gardening x3days ago, painis worse in upper back between shoulder blades FINDINGS: Five views lumbar spine, two views thoracic spine, two viewseach ribs, and two views left knee submitted with comparison 04/12/2024,01/19/2023. Ribs: No acute displaced rib fractures. Alignment is normal. No evidence of pulmonary contusion or pneumothorax. Thoracic spine: No acute fracture. Mild multilevel midthoracic degenerative disc disease. Inferior thoracic diffuse idiopathic skeletal hyperostosis. Lumbar spine: No acute fracture. L1 cementoplasty cementoplasties has been performed. Lumbarized S1 vertebra is noted. Minimal L3-L4 and L5-S1 degenerativedisc disease. Moderate to severe inferior lumbar facet osteoarthritis.Arterial atherosclerosis is present. Left knee: No acute fracture. Alignment is normal. Mild medial and patellofemoral bicompartmental left knee osteoarthritis. Small knee effusion. Arterial atherosclerosis noted. IMPRESSION: 1. No acute displaced rib fractures. 2. No acute thoracic or lumbar spine fracture. Chronic L1 compression deformity status post cementoplasty. 3. Mild multilevel midthoracic degenerative disc disease with inferior thoracic diffuse idiopathic skeletal hyperostosis. 4. Minimal L3-L4 and L5-S1 degenerative disc disease with moderate tosevere inferior lumbar facet osteoarthritis. 5. Mild medial and patellofemoral bicompartmental left kneeosteoarthritis with a small effusion. THIS IS AN ELECTRONICALLY VERIFIED FINAL REPORT 02/17/2025 8:39 PM - Electronically signed by Tomer Reese M.D. T: Report ID: [id number] Reading Location: [place] [address] [facility] XR PROCEDURES Fin al Result * XR Ribs Left 2 Views (02/17/2025 5:07 PM CDT) Anatomical Region Laterality Modality Rib, Chest Left Computed Radiogr aphy 02/17/2025 8:33 PM CDT Narrative 02/17/2025 8:39 PM CDT ORDERING MD: : OrderingProviderFirstName : OrderingProviderLastName ATTENDING MD: : AttendingDoctorFirstName : AttendingDoctorLastName SERVICE TYPE: : PatientClass ORD #: : AccessionNumber EXAM DESCRIPTION: 1. XR SPINE LUMBAR 4 OR MORE VIEWS; 2. XR SPINE THORACIC 2 VIEWS; 3. XR KNEE LEFT 1 OR 2 VIEWS; 4. XR RIBS RIGHT 2 VIEWS; 5. XR RIBS LEFT 2 VIEWS REASON FOR STUDY: s/p injury. Back and left knee pain. chest wall pain, s/p injury Pt has complaints after ground level fall while gardening x3days ago, pain is worse in upper back between shoulder blades FINDINGS: Five views lumbar spine, two views thoracic spine, two views each ribs, and two views left knee submitted with comparison 04/12/2024, 01/19/2023. Ribs: No acute displaced rib fractures. Alignment is normal. No evidence of pulmonary contusion or pneumothorax. Thoracic spine: No acute fracture. Mild multilevel midthoracic degenerative disc disease. Inferior thoracic diffuse idiopathic skeletal hyperostosis. Lumbar spine: No acute fracture. L1 cementoplasty cementoplasties has been performed. Lumbarized S1 vertebra is noted. Minimal L3-L4 and L5-S1 degenerative disc disease. Moderate to severe inferior lumbar facet osteoarthritis. Arterial atherosclerosis is present. Left knee: No acute fracture. Alignment is normal. Mild medial and patellofemoral bicompartmental left knee osteoarthritis. Small knee effusion. Arterial atherosclerosis noted. IMPRESSION: 1. No acute displaced rib fractures. 2. No acute thoracic or lumbar spine fracture. Chronic L1 compression deformity status post cementoplasty. 3. Mild multilevel midthoracic degenerative disc disease with inferior thoracic diffuse idiopathic skeletal hyperostosis. 4. Minimal L3-L4 and L5-S1 degenerative disc disease with moderate to severe inferior lumbar facet osteoarthritis. 5. Mild medial and patellofemoral bicompartmental left knee osteoarthritis with a small effusion. THIS IS AN ELECTRONICALLY VERIFIED FINAL REPORT 02/17/2025 8:39 PM - Electronically signed by Tomer Reese M.D. T: Report ID: [id number] Reading Location: [id number] Procedure Note Tomer Reese MD - 02/17/2025 ORDERING MD: : OrderingProviderFirstName : OrderingProviderLastName ATTENDING MD: : AttendingDoctorFirstName : AttendingDoctorGenarotName SERVICE TYPE: : PatientClass ORD #: : AccessionNumber EXAM DESCRIPTION: 1. XR SPINE LUMBAR 4 OR MORE VIEWS; 2. XR SPINE THORACIC 2 VIEWS; 3. XR KNEE LEFT 1 OR 2 VIEWS; 4. XR RIBS RIGHT 2 VIEWS; 5. XR RIBS LEFT 2 VIEWS REASON FOR STUDY: s/p injury. Back and left knee pain. chest wall pain, s/p injury Pt has complaints after ground level fall while gardening x3days ago, painis worse in upper back between shoulder blades FINDINGS: Five views lumbar spine, two views thoracic spine, two viewseach ribs, and two views left knee submitted with comparison 04/12/2024,01/19/2023. Ribs: No acute displaced rib fractures. Alignment is normal. No evidence of pulmonary contusion or pneumothorax. Thoracic spine: No acute fracture. Mild multilevel midthoracic degenerative disc disease. Inferior thoracic diffuse idiopathic skeletal hyperostosis. Lumbar spine: No acute fracture. L1 cementoplasty cementoplasties has been performed. Lumbarized S1 vertebra is noted. Minimal L3-L4 and L5-S1 degenerativedisc disease. Moderate to severe inferior lumbar facet osteoarthritis.Arterial atherosclerosis is present. Left knee: No acute fracture. Alignment is normal. Mild medial and patellofemoral bicompartmental left knee osteoarthritis. Small knee effusion. Arterial atherosclerosis noted. IMPRESSION: 1. No acute displaced rib fractures. 2. No acute thoracic or lumbar spine fracture. Chronic L1 compression deformity status post cementoplasty. 3. Mild multilevel midthoracic degenerative disc disease with inferior thoracic diffuse idiopathic skeletal hyperostosis. 4. Minimal L3-L4 and L5-S1 degenerative disc disease with moderate tosevere inferior lumbar facet osteoarthritis. 5. Mild medial and patellofemoral bicompartmental left kneeosteoarthritis with a small effusion. THIS IS AN ELECTRONICALLY VERIFIED FINAL REPORT 02/17/2025 8:39 PM - Electronically signed by Tomer Reese M.D. T: Report ID: [id number] Reading Location: [place] [address] [facility] XR PROCEDURES Fin al Result * Flexible Sigmoidoscopy (04/14/2024 11:51 AM CDT) Anatomical Region Laterality Modality Other Narrative Procedure Note Stevie Suarez MD - 04/14/2024 11:51 AM CDT [facility] GI ENDOSCOPY Patient Name: Latesha Lilly Procedure Date: 04/14/2024 11:51 AM Date of : 1955 Admit Type: Outpatient Age: 68 Gender: Female Attending MD: Stevie Vyas MD Room: [facility] ENDOSCOPY ROOM [facility] Note Status: Finalized Procedure: Flexible Sigmoidoscopy Indications: Hematochezia Referring MD: Providers: Stevie Suarez MD Medicines: Monitored Anesthesia Care Complications: No immediate complications. Estimated blood loss: Minimal. Estimated Blood Loss: Estimated blood loss was minimal. Procedure: Pre-Anesthesia Assessment: - Prior to the procedure, a History and Physicalwas performed, and patient medications and allergieswere reviewed. The patient is competent. The risks and benefits of the procedure and the sedation optionsand risks were discussed with the patient. Allquestions were answered and informed consent was obtained. Patient identification and proposed procedure were verified by the physician, the nurse and the independent consultant in the procedure room. Mental Status Examination: alert and oriented. AirwayExamination: normal oropharyngeal airway and neck mobility. Respiratory Examination: clear to auscultation. CV Examination: normal. Prophylactic Antibiotics: The patient does not require prophylactic antibiotics. Prior Anticoagulants: The patient has taken Plavix (clopidogrel), last dose was 5 days prior to procedure. ASA Grade Assessment: III - A patientwith severe systemic disease. After reviewing the risksand benefits, the patient was deemed in satisfactory condition to undergo the procedure. The anesthesia plan was to use monitored anesthesia care (MAC). Immediately prior to administration of medications, the patient was re-assessed for adequacy to receive sedatives. The heart rate, respiratory rate, oxygen saturations, blood pressure, adequacy of pulmonary ventilation, and response to care were monitored throughout the procedure. The physical status ofthe patient was re-assessed after the procedure. The benefits, risks, and alternatives to theprocedure and sedation were discussed and informed consentwas obtained. The GIF-H190 Upper endoscope wasintroduced through the anus and advanced to the the sigmoid colon. The flexible sigmoidoscopy was accomplished without difficulty. The patient tolerated the procedure well. The quality of the bowelpreparation was inadequate. Findings: The perianal and digital rectal examinations were normal. Copious quantities of liquid and solid brown stool was found in the recto-sigmoid colon, interfering with visualization. Internal hemorrhoids were found during retroflexion. The hemorrhoids were moderate. Impression: - Preparation of the colon was inadequate. - Brown Stool in the recto-sigmoid colon. - Internal hemorrhoids. - No specimens collected. Recommendation: - [facility] the [facility]. - Continue to monitor for signs of GI bleeding and trend hemoglobin. Transfuse for hemoglobin lessthan 7-8. - Treat with fiber supplements such as psylliumdaily. - Follow up with outpatient GI. Stevie Suarez M.D. Stevie Suarez MD 04/14/2024 12:41:58 PM . Number of Addenda: 0 Note Initiated On: 04/14/2024 11:51 AM Recognized by the [employer] for promoting quality in endoscopy us Stevie Suarez MD ENDOSCOPY PROCEDURE S Final Result * Screening Mammogram Bilateral W Burton (02/13/2024 11:04 AM CDT) Anatomical Region Laterality Modality Breast Bilateral Mammography Impressions 02/13/2024 11:15 AM CDT BI-RADS ATLAS category (overall): 1 - Negative There is no mammographic evidence of malignancy. A 1 year screening mammogram is recommended. The patient has been or will be contacted. We recommend annual screening mammography for women at average risk of breast cancer beginning at age 40, based on guidelines of the [employer] (ACR Practice Parameter for the Performance of Screening and Diagnostic Mammography) and [employer]. For women with and elevated risk of breast cancer, please refer to the ACR Practice Parameter for specific screening recommendations. The patient will be entered into a reminder system with a target due date of 1 year for her next screening exam. Narrative 02/13/2024 11:15 AM CDT Screening Mammogram Bilateral W Burton: 02/13/24 The study was acquired using full field digital technology and interpreted from soft copy. 2D digital mammographic views, as well as 3D digital tomosynthesis were performed in the CC and MLO projections. CLINICAL: Screening mammogram, encounter for. No relevant medical history has been documented for this patient. History of breast cancer in Mother, Maternal Grandmother, Mother's Sister, Mother's Sister, Mother's Sister, Mother's Sister, Mother's Sister, Mother's Sister, Mother's Sister. COMPARISONS: 12/02/2022 Screening Mammogram Bilateral W Burton 07/05/2021 Screening Mammogram Bilateral W Burton 07/04/2019 Screening Mammogram Bilateral W Burton 04/26/2017 Screening Mammogram Bilateral W Burton BREAST TISSUE: The breasts have scattered areas of fibroglandular density. FINDINGS: There are 2 biopsy marker clips in the left breast. No suspicious masses, suspicious calcifications, or other suspicious findings are seen within either breast. There has been no suspicious change. us Self Screening Mammogram IMG MAMMO PROCEDURES Fi nal Result * Colonoscopy (11/03/2023 1:40 PM CDT) Anatomical Region Laterality Modality Other Narrative Procedure Note Elisabeth Siegel MD - 11/03/2023 1:40 PM CDT [facility] GI ENDOSCOPY Patient Name: Latesha Lilly Procedure Date: 11/03/2023 1:40 PM Date of : 1955 Admit Type: Outpatient Age: 68 Gender: Female Attending MD: Elisabeth Siegel M.D. Room: [facility] ENDOSCOPY ROOM 05 Note Status: Finalized Procedure: Colonoscopy Indications: High risk colon cancer surveillance: Personalhistory of colonic polyps Referring MD: Providers: Elisabeth Siegel M.D. Medicines: See the Anesthesia note for documentation of the administered medications Complications: No immediate complications. Estimated Blood Loss: Estimated blood loss: none. Procedure: Pre-Anesthesia Assessment: - Prior to the procedure, a History and Physicalwas performed, and patient medications, allergies and sensitivities were reviewed. The patient'stolerance of previous anesthesia was reviewed. - The risks and benefits of the procedure and the sedation options and risks were discussed with the patient. All questions were answered and informed consent was obtained. The benefits, risks and alternatives of theprocedure and sedation were discussed and informed consentwas obtained. All questions were answered. Please referto the signed informed consent document in the medical record. The scope was passed under direct vision.The [id number]-[id number] colonoscope was introduced through theanus and advanced to the cecum, identified byappendiceal orifice and ileocecal valve. The colonoscopy was performed without difficulty. The patient tolerated the procedure well. The quality of the bowel preparation was adequate to identify polyps. The ileocecal valve, appendiceal orifice, and rectumwere photographed. Prep was administered in a singledose. Findings: The perianal and digital rectal examinations were normal. Pertinent negatives include normal sphincter tone. A few medium-mouthed diverticula were found in the left colon. The retroflexed view of the distal rectum and anal verge was normaland showed no anal or rectal abnormalities. Impression: - Diverticulosis in the left colon. - The distal rectum and anal verge are normal on retroflexion view. - No specimens collected. Recommendation: - Resume previous diet. - Continue present medications. Elisabeth Siegel M.D. Elisabeth Siegel M.D. 11/03/2023 2:53:02 PM . Number of Addenda: 0 Note Initiated On: 11/03/2023 1:40 PM Recognized by the [employer] for promoting quality in endoscopy Elisabeth Siegel MD ENDOSCOPY PROCEDURES [place] l Result * Dexa Axial Skeleton Bone Density 1 or 2 Site (09/05/2023 8:28 AM JAIL OFFICER) Anatomical Region Laterality Modality Body N/A Mammography 09/05/2023 9:00 AM JAIL OFFICER Narrative 09/05/2023 9:01 AM JAIL OFFICER EXAM DESCRIPTION: DEXA AXIAL SKELETON BONE DENSITY 1 OR MORE SITES REASON FOR STUDY: 67 y/o year old F with given history of: Postmenopausal status. History of prior fracture. Patient has taken/is taking Fosamax, vitamin-D and calcium. History of asthma or emphysema. 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 LEFT HIP: Total BMD is 0.728 g/cm2 T-score is -1.8 This is a 1.1% decrease in comparison to prior exam which is not statistically significant. Femoral neck BMD is 0.566 g/cm2 T-score is -2.6 FRAX: FRAX not reported due to T-scores of hip, femoral neck and/or spine being at or below -2.5 (Osteoporosis). IMPRESSION: Osteoporosis. REFERENCE: Bone mineral density: Normal (T-score above or = -1.0) Low bone mass (T-score between -1.0 and -2.5) replaces the previously used term osteopenia Osteoporosis (T-score = or below -2.5) Medical evaluation for secondary causes of low bone mineral density may be appropriate. FRAX is a World Health Organization validated fracture risk assessment tool that calculates a person's 10 year probability of a major osteoporosis related fracture and hip fracture. According to the National Osteoporosis Foundation guidelines, postmenopausal women and men age 50 or older with low bone mass and a 10 year probability of a major osteoporosis related fracture = or greater than 20% or a 10 year probability of a hip fracture = or greater than 3% should be considered for treatment. For further information, including treatment recommendations, please refer to the 2019 ISCD Official Positions (http://www.iscd.org) and the NOF's Clinician's Guide to Prevention and Treatment of Osteoporosis (http://www.nof.org/professionals/clinical-guidelines) THIS IS AN ELECTRONICALLY VERIFIED FINAL REPORT 09/05/2023 9:01 AM - Electronically signed by Christine Lorenzana M.D. TW: TW Report ID: [id number] Reading Location: [id number] Procedure Note Christine Lorenzana MD - 09/05/2023 EXAM DESCRIPTION: DEXA AXIAL SKELETON BONE DENSITY 1 OR MORE SITES REASON FOR STUDY: 67 y/o year old F with given history of:Postmenopausal status. History of prior fracture. Patient has taken/is taking Fosamax, vitamin-D and calcium. History of asthma or emphysema. 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 LEFT HIP: Total BMD is 0.728 g/cm2 T-score is -1.8 This is a 1.1% decrease in comparison to prior exam which is notstatistically significant. Femoral neck BMD is 0.566 g/cm2 T-score is -2.6 FRAX: FRAX not reported due to T-scores of hip, femoral neck and/or spine beingat or below -2.5 (Osteoporosis). IMPRESSION: Osteoporosis. REFERENCE: Bone mineral density: Normal (T-score above or = -1.0) Low bone mass (T-score between -1.0 and -2.5) replaces thepreviously used term osteopenia Osteoporosis (T-score = or below -2.5) Medical evaluation for secondary causes of low bone mineral density may be appropriate. FRAX is a World Health Organization validated fracture risk assessmenttool that calculates a person's 10 year probability of a major osteoporosisrelated fracture and hip fracture. According to the National OsteoporosisFoundation guidelines, postmenopausal women and men age 50 or older with low bonemass and a 10 year probability of a major osteoporosis related fracture = or greater than 20% or a 10 year probability of a hip fracture = or greaterthan 3% should be considered for treatment. For further information, including treatment recommendations, please referto the 2019 ISCD Official Positions (http://www.iscd.org) and the NOF's Clinician's Guide to Prevention and Treatment of Osteoporosis (http://www.nof.org/professionals/clinical-guidelines) THIS IS AN ELECTRONICALLY VERIFIED FINAL REPORT 09/05/2023 9:01 AM - Electronically signed by Christine Lorenzana M.D. TW: TOMASA Report ID: [id number] Reading Location: [place] [address] [address] MORAL[facility] DXA PROCEDURES Fi nal Result from Last 3 Months or Most Recently Relevant to Health Maintenance Insurance [employer] [place] [address] [address] MEDICARE [facility] MEDIC[facility] Advance Directives For more information, please contact: [phone] * Full Code (Latest Code Status on File) Date Activated Date Inactivated Comments 04/14/2024 11:23 AM 04/17/2024 8:36 PM * Full Code Date Activated Date Inactivated Comments 04/13/2024 2:35 AM 04/14/2024 11:23 AM Care Teams Research Director Relationship Specialty Start Date End Date Сергей Cunningham MD [address] [place] [id number] PCP - General Internal Medicine 01/15/19 Reina Mena MD [address] [address] Consulting Physician Pain Management 10/12/22 [place] [id number] [address] Consulting Physician Cardiology 08/04/23
--- OUTSIDE RECORDS SUMMARY | 2025-02-27 15:02 | XMS_ITS | Referral Summary ---
Author Organization [facility] [address] [facility] Address [address] [place] [place] [address] Care Team Providers Care Phytochemistry Professor Name Role Phone Сергей Cunningham MD Primary Care Provider + Reina Mena MD Unavailable Pedro Momin MD Unavailable Encounters Date Type Department Care Team Description 02/26/2025 7:36 PM CDT - 02/26/2025 11:59 PM CDT Hospital Encounter [facility] [address] [place] [address] Radiculopathy, lumbar region; Bulge of lumbar disc without myelopathy; Intractable low back pain Discharge Disposition: Discharge to home or self care 02/25/2025 8:32 AM CDT - 02/25/2025 11:59 PM CDT Hospital Encounter [facility] [address] [address] Reina Mena MD Radiculopathy, lumbar region (Primary Dx); Bulge of lumbar disc without myelopathy; Intractable low back pain Discharge Disposition: Discharge to home or self care 02/20/2025 6:16 AM CDT - 02/20/2025 12:47 PM CDT Emergency [facility] [address] [place] [address] [phone] Erwin Brown MD Nausea and vomiting, unspecified vomiting type (Primary Dx); Fall, initial encounter; Acute nonintractable headache, unspecified headache type Discharge Disposition: Discharge to home or self care 02/18/2025 Results Follow-Up [facility] [address] [place] [address] Azucena Dickinson PA XR Spine Thoracic 2 Views, XR Ribs Left 2 Views, XR Spine Lumbar 4 or More Views, Additional followed-up results: 2 02/17/2025 4:00 PM CDT - 02/17/2025 11:59 PM CDT Hospital Encounter [facility] [address] [place] [address] Lumbar pain; Acute left-sided thoracic back pain; Contusion of left knee, initial encounter; Pain in rib Discharge Disposition: Discharge to home or self care 02/17/2025 1:15 PM CDT Office Visit [facility] [address] [place] [address] Azucena Dickinson PA Contusion of left knee, initial encounter (Primary Dx); Acute left-sided thoracic back pain; Lumbar pain; Pain in rib 02/17/2025 Nurse Triage [facility] Primary [facility] [address] [place] [address] Сергей Cunningham MD from Last 3 Months Allergies Active Allergy Reactions Criticality Noted Date [...] 025 Assessment & Plan (10/03/2024 2:34 PM PLASTERER STUCCO): Stable on losartan. Follows with Dr. Merrill SANTIAGO 03/13/2024 Assessment & Plan (03/13/2024 8:42 AM CDT): Will look into studies at [facility] Iron deficiency anemia due to chronic blood loss 08/23/2023 Assessment & Plan (10/01/2024 7:12 AM PLASTERER STUCCO): Stable on iron daily. Follows with Hematology. Assessment & Plan (08/23/2023 7:00 AM PLASTERER STUCCO): Stable on iron daily. Follows with Hematology. Basal cell carcinoma of lower eyelid, left 08/03 Hordeolum externum left lower eyelid 07/10/2023 Assessment & Plan (07/10/2023 4:06 PM PLASTERER STUCCO): Improving on its own. Okay to observe to resolution. Thoracic spondylosis 01/19/2023 Spondylosis of lumbar region without myelopathy or radiculopathy 01/19/2023 Muscle strain 08/25/2022 Assessment & Plan (08/25/2022 2:59 PM PLASTERER STUCCO): Multiple sites after falling on August 16. No fractures. Patient still has lumbar pain with right-sided sciatica. Will try prednisone taper. [place] and cyclobenzaprine prescribed in ER did not help pain at all, will stop that. Multiple thyroid nodules 08/25/2022 Assessment & Plan (10/01/2024 7:12 AM PLASTERER STUCCO): Stable. Follows with Dr. Canela Assessment & Plan (08/23/2023 6:55 AM PLASTERER STUCCO): Due for repeat thyroid ultrasound Assessment & Plan (02/13/2023 7:21 AM CDT): Due for repeat thyroid ultrasound in August 2023 Assessment & Plan (08/25/2022 1:57 PM PLASTERER STUCCO): Incidental finding on neck CT that was [...] any relief. Will temporary switch it to [place] 5/325 1 tablet every 6 hours. Do not take Tylenol No. 4 while on [place]. Will check lumbar x-ray. Patient currently has [...] Narcan. Assessment & Plan (10/01/2024 7:11 AM PLASTERER STUCCO): Stable on Tylenol No. 4 and gabapentin. Assessment & Plan (03/12/2024 8:09 AM CDT): Stable on Tylenol No. 4 and gabapentin. Assessment & Plan (02/13/2023 7:20 AM CDT): Stable on Tylenol No. 4 and gabapentin. Assessment & Plan (08/01/2022 8:32 AM PLASTERER STUCCO): Stable on Tylenol No. 4 and gabapentin. [...] 06/24/2020 Assessment & Plan (10/01/2024 7:11 AM PLASTERER STUCCO): Residual weakness secondary to CVA. Stable. Assessment & Plan (03/12/2024 8:09 AM CDT): Residual weakness secondary to CVA. Stable. Assessment & Plan (08/23/2023 6:55 AM PLASTERER STUCCO): Residual weakness secondary to CVA. Stable. Assessment & Plan (02/13/2023 7:20 AM CDT): Residual weakness secondary to CVA. Stable. Assessment & Plan (07/28/2022 12:19 PM PLASTERER STUCCO): Residual weakness secondary to CVA. Stable. Assessment & Plan (01/20/2022 8:41 AM CDT): Residual weakness secondary to CVA. Assessment & Plan (07/08/2021 1:03 PM PLASTERER STUCCO): Residual weakness secondary to CVA. Assessment & Plan (01/04/2021 1:13 PM CDT): Residual weakness secondary to CVA. Has a right footdrop. Assessment & Plan (06/24/2020 10:36 AM PLASTERER STUCCO): Residual weakness secondary to CVA. Has right foot drop. Right foot drop 06/24/2020 Assessment & Plan (10/01/2024 7:11 AM PLASTERER STUCCO): Stable. Requires an AFO to ambulate. Assessment & Plan (03/12/2024 8:09 AM CDT): Stable. Requires an AFO to ambulate. Assessment & Plan (08/23/2023 6:55 AM PLASTERER STUCCO): Stable. Requires an AFO to ambulate. Assessment & Plan (02/13/2023 7:21 AM CDT): Stable. Requires an AFO to ambulate. Assessment & Plan (07/28/2022 12:19 PM PLASTERER STUCCO): Stable. Requires an AFO to ambulate. Assessment & Plan (01/20/2022 8:40 AM CDT): Stable. Required AFO to ambulate Assessment & Plan (07/08/2021 1:03 PM PLASTERER STUCCO): Stable. Requires AFO to ambulate Assessment & Plan (01/04/2021 1:14 PM CDT): Stable. Requires AFO to ambulate Assessment & Plan (06/24/2020 10:36 AM PLASTERER STUCCO): We will order an AFO to help [...] prn. Assessment & Plan (06/24/2020 10:43 AM PLASTERER STUCCO): Pain worse secondary to falls. Will check MRI to rule out compression fracture or herniated disc. Encounter for Medicare annual wellness exam 10/2019 Depression screening 06/23/2020 Assessment & Plan (03/12/2024 8:10 AM CDT): Negative for depression Assessment & Plan (02/13/2023 7:22 AM CDT): Negative for depression Assessment & Plan (01/20/2022 8:41 AM CDT): Negative for depression Assessment & Plan (06/23/2020 12:34 PM PLASTERER STUCCO): Negative for depression Risk for falls 06/23/2020 [...] footdrop Assessment & Plan (06/24/2020 10:38 AM PLASTERER STUCCO): High risk for falls secondary to right foot drop Osteopenia of neck of femur 12/18/2019 Overview (12/18/2019): Last bone density was done in June of 2019. She was started on Fosamax at that time. Assessment & Plan (10/01/2024 7:11 AM PLASTERER STUCCO): Bone density was worse on DEXA in June of 2023. Continue calcium plus vitamin-D. Assessment & Plan (03/12/2024 8:09 AM CDT): Bone density was worse on DEXA in June of 2023. Continue calcium plus vitamin-D. Assessment & Plan (08/23/2023 6:54 AM PLASTERER STUCCO): Bone density improved on July 05, 2021. Continue calcium plus vitamin-D. Assessment & Plan (02/13/2023 7:19 AM CDT): Bone density improved on July 05, 2021. Continue calcium plus vitamin-D. Assessment & Plan (01/20/2022 8:40 AM CDT): Bone density improved on July 05, 2021. Continue calcium plus vitamin-D Assessment & Plan (07/12/2021 8:56 AM PLASTERER STUCCO): Bone density was improved on a July 05, 2021. Continue calcium plus vitamin- D. Assessment & Plan (01/06/2021 3:04 PM CDT): Continue calcium plus vitamin-D. Due for repeat bone density in June of 2021. Stop alendronate secondary to side effects. Assessment & Plan (06/23/2020 12:34 PM PLASTERER STUCCO): Stable on alendronate and calcium plus vitamin-D. Will due for repeat bone density in June 2021 Assessment & Plan (12/18/2019 9:31 AM CDT): Continue alendronate and calcium plus vitamin-D. Will be due for repeat bone density in June of 2021 Aspirin allergy 12/16/2019 Assessment & Plan (10/01/2024 7:11 AM PLASTERER STUCCO): Patient gets anaphylaxis from aspirin. Assessment & Plan (03/12/2024 8:10 AM CDT): Patient gets anaphylaxis from aspirin. Assessment & Plan (08/23/2023 6:54 AM PLASTERER STUCCO): Patient gets anaphylaxis from aspirin. Assessment & Plan (06/23/2020 12:33 PM PLASTERER STUCCO): Patient gets anaphylaxis from aspirin. Assessment & Plan (12/16/2019 8:34 AM CDT): Patient gets anaphylaxis from aspirin. Chronic stable angina 05/07/2019 Assessment & Plan (10/01/2024 7:11 AM PLASTERER STUCCO): Stable on isosorbide and Ranexa Assessment & Plan (03/12/2024 8:07 AM CDT): Stable on isosorbide and Ranexa Assessment & Plan (08/23/2023 6:54 AM PLASTERER STUCCO): Stable on isosorbide and Ranexa Assessment & Plan (02/13/2023 7:19 AM CDT): Stable on isosorbide and Ranexa Assessment & Plan (07/28/2022 12:20 PM PLASTERER STUCCO): Stable on isosorbide and Ranexa Assessment & Plan (01/20/2022 8:39 AM CDT): Stable on isosorbide and Ranexa Assessment & Plan (07/08/2021 1:03 PM PLASTERER STUCCO): Stable on isosorbide and Ranexa Assessment & Plan (01/04/2021 1:12 PM CDT): Stable on isosorbide and Ranexa Assessment & Plan (06/23/2020 12:31 PM PLASTERER STUCCO): Stable on isosorbide and Ranexa Assessment & Plan (12/16/2019 8:37 AM CDT): Stable on isosorbide and Ranexa Assessment & Plan (06/13/2019 3:35 PM CDT): Continue isosorbide and nitroglycerin as needed. Hypertensive heart and kidne y disease without heart failure and with chronic kidney disease stage IV 10/31/2018 Assessment & Plan (10/01/2024 7:10 AM PLASTERER STUCCO): Well controlled on amlodipine, clonidine, and guanfacine Assessment & Plan (03/13/2024 8:32 AM CDT): Well controlled on amlodipine, clonidine, and guanfacine Assessment & Plan (08/23/2023 6:53 AM PLASTERER STUCCO): Well controlled on chlorthalidone, amlodipine, clonidine, and guanfacine Assessment & Plan (02/13/2023 7:17 AM CDT): Well controlled on chlorthalidone, amlodipine, clonidine, and guanfacine Assessment & Plan (07/28/2022 12:17 PM PLASTERER STUCCO): Well controlled on chlorthalidone, amlodipine, clonidine, and guanfacine Assessment & Plan (01/20/2022 8:37 AM CDT): Well controlled on chlorthalidone, amlodipine, clonidine, and guanfacine. Assessment & Plan (07/12/2021 9:13 AM PLASTERER STUCCO): Well controlled on chlorthalidone, amlodipine, clonidine, and guanfacine. Spironolactone and isosorbide on hold. Assessment & Plan (01/04/2021 1:11 PM CDT): Well controlled onWell controlled on spironolactone, chlorthalidone, amlodipine, clonidine, and guanfacine Assessment & Plan (06/23/2020 12:30 PM PLASTERER STUCCO): Well controlled. Continue spironolactone, chlorthalidone, amlodipine, clonidine, furosemide, and guanfacine Assessment & Plan (12/16/2019 8:33 AM CDT): Well controlled. Continue spironolactone, chlorthalidone, amlodipine, clonidine, furosemide, and guanfacine Assessment & Plan (06/13/2019 3:32 PM CDT): Well controlled. Continue spironolactone, chlorthalidone, amlodipine, clonidine, furosemide, guanfacine. 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 Circumflex has 25% stenosis. RCA has proximal 30% followed was on 5% stenosis. Distally it has a 30% and 60% les Assessment & Plan (10/01/2024 7:10 AM PLASTERER STUCCO): Stable on atorvastatin and clopidogrel. Not on aspirin secondary to aspirin allergy Assessment & Plan (03/12/2024 8:06 AM CDT): Stable on atorvastatin and clopidogrel. Not on aspirin secondary to aspirin allergy Assessment & Plan (08/23/2023 6:53 AM PLASTERER STUCCO): Stable on atorvastatin and clopidogrel. Not on aspirin secondary to aspirin allergy Assessment & Plan (02/13/2023 7:17 AM CDT): Stable on atorvastatin and clopidogrel. Not on aspirin secondary to aspirin allergy Assessment & Plan (07/28/2022 12:20 PM PLASTERER STUCCO): Stable on atorvastatin and clopidogrel. Not on aspirin secondary to aspirin allergy Assessment & Plan (01/20/2022 8:38 AM CDT): Stable on atorvastatin and clopidogrel. Not on aspirin secondary to aspirin allergy. Assessment & Plan (07/08/2021 12:59 PM PLASTERER STUCCO): Stable on atorvastatin and clopidogrel. Not on aspirin secondary to aspirin allergy Assessment & Plan (01/04/2021 1:11 PM CDT): Stable on atorvastatin and clopidogrel. Not on aspirin secondary to aspirin allergy. Assessment & Plan (06/23/2020 12:30 PM PLASTERER STUCCO): Stable. Continue isosorbide, nitroglycerin, Ranexa, and atorvastatin. [...] 04/18/2018 Assessment & Plan (08/23/2023 6:56 AM PLASTERER STUCCO): Stable on Linzess Assessment & Plan (02/13/2023 7:19 AM CDT): Stable on Linzess Assessment & Plan (07/28/2022 12:20 PM PLASTERER STUCCO): Stable on Linzess Assessment & Plan (01/20/2022 8:39 AM CDT): Stable on Linzess Assessment & Plan (07/12/2021 9:11 AM PLASTERER STUCCO): Stable on linzess and docusate sodium. Class 1 obesity due to exces s calories with serious comorbidity and body mass index (BMI) of 30.0 to 30.9 in adult 04/18/2018 Assessment & Plan (10/01/2024 7:12 AM PLASTERER STUCCO): BMI Follow-up includes: exercise counseling. Assessment & Plan (03/12/2024 8:09 AM CDT): BMI Follow-up includes: exercise counseling. Assessment & Plan (08/23/2023 6:54 AM PLASTERER STUCCO): BMI Follow-up includes: exercise counseling. Assessment & Plan (02/13/2023 7:19 AM CDT): BMI Follow-up includes: exercise counseling. Assessment & Plan (07/28/2022 12:19 PM PLASTERER STUCCO): BMI Follow-up includes: exercise counseling. Assessment & Plan (01/20/2022 8:39 AM CDT): BMI Follow-up includes: exercise counseling. Assessment & Plan (07/08/2021 1:03 PM PLASTERER STUCCO): BMI Follow-up includes: exercise counseling. Assessment & Plan (01/04/2021 1:14 PM CDT): BMI Follow-up includes: exercise counseling. Assessment & Plan (06/23/2020 12:33 PM PLASTERER STUCCO): BMI Follow-up includes: exercise counseling. Pure hypercholesterolemia 10/04/2016 Assessment & Plan (10/01/2024 7:10 AM PLASTERER STUCCO): Stable on atorvastatin Assessment & Plan (03/12/2024 8:06 AM CDT): Stable on atorvastatin Assessment & Plan (08/23/2023 6:53 AM PLASTERER STUCCO): Stable on atorvastatin Assessment & Plan (02/13/2023 7:18 AM CDT): Stable on atorvastatin Assessment & Plan (07/28/2022 12:17 PM PLASTERER STUCCO): Stable on atorvastatin Assessment & Plan (01/20/2022 8:38 AM CDT): Stable on atorvastatin Assessment & Plan (07/08/2021 12:59 PM PLASTERER STUCCO): Stable on atorvastatin Assessment & Plan (01/04/2021 1:11 PM CDT): Stable on atorvastatin Assessment & Plan (06/23/2020 12:31 PM PLASTERER STUCCO): Stable on atorvastatin Assessment & Plan (12/16/2019 8:35 AM CDT): Stable on atorvastatin Assessment & Plan (06/13/2019 3:40 PM CDT): Well controlled on atorvastatin. Dr. Maurice checks lipids GERD (gastroesophageal reflux disease) 6 Assessment & Plan (10/01/2024 7:11 AM PLASTERER STUCCO): Stable on pantoprazole Assessment & Plan (03/12/2024 8:07 AM CDT): Stable on pantoprazole Assessment & Plan (08/23/2023 6:54 AM PLASTERER STUCCO): Stable on pantoprazole Assessment & Plan (02/13/2023 7:18 AM CDT): Stable on pantoprazole Assessment & Plan (07/28/2022 12:18 PM PLASTERER STUCCO): Stable on pantoprazole Assessment & Plan (01/20/2022 8:39 AM CDT): Stable on pantoprazole Assessment & Plan (07/08/2021 1:02 PM PLASTERER STUCCO): Stable on pantoprazole Assessment & Plan (01/04/2021 1:13 PM CDT): Stable on pantoprazole Assessment & Plan (06/23/2020 12:33 PM PLASTERER STUCCO): Stable on pantoprazole Assessment & Plan (12/16/2019 8:37 AM CDT): Stable on pantoprazole Assessment & Plan (06/13/2019 3:44 PM CDT): Stable, continue pantoprazole. Mild intermittent asthma with acute exacerbation 03/23/2016 Assessment & Plan (11/06/2024 2:39 PM CDT): With exacerbation. Continue albuterol HFA and albuterol nebulizer. Will do a prednisone taper Assessment & Plan (10/01/2024 7:10 AM PLASTERER STUCCO): Stable. Continue albuterol HFA and albuterol nebulizer Assessment & Plan (03/12/2024 8:06 AM CDT): Stable. Continue albuterol HFA and albuterol nebulizer Assessment & Plan (08/23/2023 6:53 AM PLASTERER STUCCO): Stable. Continue albuterol HFA and albuterol nebulizer Assessment & Plan (02/13/2023 7:18 AM CDT): Stable. Continue albuterol HFA and albuterol nebulizer Assessment & Plan (07/28/2022 12:18 PM PLASTERER STUCCO): Stable. Continue albuterol HFA and albuterol nebulizer Assessment & Plan (01/20/2022 8:38 AM CDT): Stable. Continue albuterol HFA and albuterol nebulized Assessment & Plan (07/08/2021 1:01 PM PLASTERER STUCCO): Stable. Continue albuterol HFA and albuterol nebulizer. Assessment & Plan (01/04/2021 1:12 PM CDT): Stable. Continue albuterol HFA and albuterol nebulizer Assessment & Plan (06/23/2020 12:32 PM PLASTERER STUCCO): Stable. Continue albuterol HFA p.r.n. and albuterol nebulizer. Assessment & Plan (12/16/2019 8:35 AM CDT): Stable. Continue a albuterol HFA p.r.n. and nebulizer p.r.n. Assessment & Plan (06/13/2019 3:43 PM CDT): Stable. Continue albuterol inhaler and nebulizer as needed. History of CVA with residual deficit 03/23/2016 Assessment & Plan (10/01/2024 7:10 AM PLASTERER STUCCO): Stable on clopidogrel and atorvastatin Assessment & Plan (03/12/2024 8:06 AM CDT): Stable on clopidogrel and atorvastatin Assessment & Plan (08/23/2023 6:54 AM PLASTERER STUCCO): Stable on clopidogrel and atorvastatin Assessment & Plan (02/13/2023 7:18 AM CDT): Stable on clopidogrel and atorvastatin Assessment & Plan (07/28/2022 12:18 PM PLASTERER STUCCO): Stable on clopidogrel and atorvastatin Assessment & Plan (01/20/2022 8:38 AM CDT): Stable on clopidogrel and atorvastatin Assessment & Plan (07/08/2021 1:01 PM PLASTERER STUCCO): Stable on clopidogrel and atorvastatin Assessment & Plan (01/04/2021 1:12 PM CDT): Stable on clopidogrel and atorvastatin Assessment & Plan (06/23/2020 12:31 PM PLASTERER STUCCO): Stable on clopidogrel and atorvastatin Assessment & Plan (12/16/2019 8:35 AM CDT): Stable on clopidogrel and atorvastatin. Assessment & Plan (06/14/2019 9:19 AM CDT): With expressive aphasia. Stable. Continue clopidogrel, atorvastatin. Expressive aphasia 03/23/2016 Assessment & Plan (10/01/2024 7:11 AM PLASTERER STUCCO): Stable Assessment & Plan (03/12/2024 8:06 AM CDT): Stable Assessment & Plan (08/23/2023 6:54 AM PLASTERER STUCCO): Stable Assessment & Plan (02/13/2023 7:18 AM CDT): Stable Assessment & Plan (07/28/2022 12:18 PM PLASTERER STUCCO): Stable Assessment & Plan (01/20/2022 8:39 AM CDT): Stable Assessment & Plan (07/08/2021 1:01 PM PLASTERER STUCCO): Stable Assessment & Plan (01/04/2021 1:12 PM CDT): Stable Assessment & Plan (06/23/2020 12:32 PM PLASTERER STUCCO): Stable Assessment & Plan (12/16/2019 8:36 AM CDT): Stable Assessment & Plan (06/14/2019 1:49 PM CDT): Stable Seizure disorder 03/23/2016 Assessment & Plan (10/01/2024 7:11 AM PLASTERER STUCCO): Stable on Keppra Assessment & Plan (03/12/2024 8:06 AM CDT): Stable on Keppra Assessment & Plan (08/23/2023 6:54 AM PLASTERER STUCCO): Stable on Keppra Assessment & Plan (02/13/2023 7:18 AM CDT): Stable on Keppra Assessment & Plan (07/28/2022 12:18 PM PLASTERER STUCCO): Stable on Keppra Assessment & Plan (01/20/2022 8:39 AM CDT): Stable on Keppra Assessment & Plan (07/12/2021 9:13 AM PLASTERER STUCCO): Keppra currently on hold Assessment & Plan (01/04/2021 1:13 PM CDT): Stable on Keppra Assessment & Plan (06/23/2020 12:31 PM PLASTERER STUCCO): Stable on Keppra Assessment & Plan (12/16/2019 [...] 08/23/2023 Assessment & Plan (07/10/2023 4:01 PM PLASTERER STUCCO): Mostly sinus congestion. Pt had anaphylactic reaction [...] 02/13/2023 Assessment & Plan (08/25/2022 2:59 PM PLASTERER STUCCO): Onset 3 days ago. COVID was negative today. Mostly dry cough. No respiratory distress. Will try Tessalon Perles. Chronic kidney disease, unspecified 06/01/2021 08/23/2023 Agitation 06/24/2020 02/13/2023 Assessment & Plan (06/24/2020 10:21 AM PLASTERER STUCCO): Worse when she does not eat. Sounds like it is related to hypoglycemia. Instructed patient on eating 3 meals a day. Acute midline low back pain without sciatica 0 12/28/2020 Frequent falls 06/24/2020 02/13/2023 Assessment & Plan (06/24/2020 1:38 PM PLASTERER STUCCO): Most likely secondary to right foot drop. Would benefit from an AFO. Other headache syndrome 12/18/201901/20 Assessment & Plan (12/18/2019 9:20 AM CDT): Most likely Cerebral infarction due to u nspecified occlusion or stenosis of unspecified cerebral artery 06/05/2019 08/23/2023 Hyperlipidemia 06/05/2019 08/23/2023 Dyslipidemia 04/23/2019 05/07/2019 Atherosclerosis of [place] co ronary artery of [place] heart with angina pectoris 07/24/20182018 History of [...] #4 Assessment & Plan (08/23/2023 6:56 AM PLASTERER STUCCO): Pain controlled with Tylenol #4 Assessment & [...] CDT): Stable. Patient takes Benadryl as needed. Immunizations Immunization Administration Dates Next Due Influenza, [...] nt, Subunit, Adjuvanted, PF, IM (Arexvy) 10/14/2023 Social History Tobacco Use Types Packs/Day Years [...] materials from doctor or pharmacy Never 05/14/2024 [facility] Utilities Answer Date Recorded In the past 12 months has e [employer], oil, or water [employer] threatened to shut off services in your [...] often do you attend chur ch or buddhist services? 1 to 4 times per year 04/15/2024 Do you belong to any clubs o r organizations such as faith groups, unions, fraternal or athletic groups, or [...] any time in the past [address] [facility], were you homeless or living in a fci (including now)? No 04/15/2024 Personal Safety Answer Date Recorded Have you ever been in or are you currently in a harmful physical or emotional relationship or is someone making you feel afraid or unsafe? Denies 02/20/2025 Comments No Sex and Gender Information Value Date Recorded Sex Assigned at Not on file Legal Sex Female 7:20 PM PLASTERER STUCCO Gender Identity Female 08/19/2022 6:55 AM PLASTERER STUCCO Sexual Orientation Not on file Last Filed [...] 02/17/2025 1:42 PM CDT Plan of Treatment Not on file Medical Devices Implanted Type Area Rotary Drill Operator Helper Device Identifier Shelf Expiration Date Model / Serial / Lot Bj Medical Avamax Od13 Ga L10 Mm Balloon Tray Bone Cement [id number] - [id number] - [id number] Implanted:Qty: 1 on 10/12/2022 at [facility] Bone Cement [employer] 06/20/2024 [id number] / [id number] / [id number] Description:BJ VERTAPLE X HV RADIOPAQUE BONE CEMENT Bj Medical Vertaplex Hv Autoplex Without Needle Delivery System Kit Bone [id number] - [id number] - [id number] Implanted:Qty: 1 on 10/12/2022 at [facility] Other - see comments [employer] 08/21/2025 [id number] / [id number] / [id number] Description:BJ AUTOPLEX SYSTEM WITHOUT NEEDLES Procedures Procedure [...] Read Routine (OP Routine) 09/05/2023 8:28 AM PLASTERER STUCCO Postmenopausal from Last 3 Months or Most [...] entirety of the spinal axis demonstrates 7 [id number] cervical vertebrae and 12 rib-bearing vertebrae in [...] Rigo Swartz M.D. JOSHUA T: Report ID: [id number] Reading Location: [place] [address] Procedure Note Rigo Swartz MD - 02/27/2025 [...] spine reconstructions 02/20/2025; thoracic and lumbar spine pltcawkutf71/30/2025 and 01/19/2023; thoracic spine radiograph 11/02/2022; DEXA scan09/05/2023: Reported as osteoporosis; MRI lumbar spine without contrast 09/26/2022. FINDINGS: SEGMENTATION: Utilization of prior imaging for top downcounting of the entirety of the spinal axis demonstrates 7 [id number]-[id number] cervical vertebrae and 12 rib-bearing vertebrae in [...] Rigo Swartz M.D. JOSHUA T: Report ID: [id number] Reading Location: [place] [address] Reina Mena MD IMG MRI PROCEDURES Final Result * Troponin T high-sensitivity 2-hour (02/20/2025 9:25 AM CDT) Trop T hs 14 <=14 ng/L Comment: Interpretive Data For further hscTnT resources including the diagnostic algorithm and an aid in interpretation, copy and paste this link: https://nrl.testcatalog.org/show/hsTrop Current Interpretive Data last revised 2020. Trop T hs delta -3 ng/L ADELA GAO Trop T hs interp Insignificant ADELA GAO Blood 02/20/2025 9:25 AM CDT 02/20/2025 9:27 AM CDT Erwin Brown MD LAB BLOOD ORDERABLES Fi nal Result ADELA [address] [facility] [place] [address] * CT Recon Thoracic and Lumbar Spine [...] signed by Steve GOLD T: Report ID: [id number] Reading Location: [place] [address] Procedure Note Steve Rodriguez MD - 02/20/2025 [...] of this report lumbar vertebra are labeled [id number] L6. THIS IS AN ELECTRONICALLY VERIFIED FINAL REPORT 02/20/2025 9:01 AM - Electronically signed by Steve GOLD T: Report ID: [id number] Reading Location: [id number] Erwin Brown MD IMG CT PROCEDURES Final [...] 9:11 AM - Electronically signed by Steve Rodriguez M.D. RB T: Report ID: [id number] Reading Location: [place] [address] Procedure Note Steve Rodriguez MD - 02/20/2025 [...] 9:11 AM - Electronically signed by Steve Rodriguez M.D. RB T: Report ID: [id number] Reading Location: [id number] Erwin Brown MD IMG CT PROCEDURES Final [...] demonstrates 1.1 cm lucent focus similar to 2021 suggesting process. DISCS: Moderate degenerative changes with [...] signed by Steve GOLD T: Report ID: [id number] Reading Location: [place] [address] Procedure Note Steve Rodriguez MD - 02/20/2025 [...] demonstrates 1.1 cm lucent focus similar to 202 suggesting process. DISCS: Moderate degenerative changes with [...] a 1.3 cm hypodense lesion unchanged from 202 suggesting benign process. OTHER: No other significant [...] Steve Rodriguez M.D. RB T: Report ID: [id number] Reading Location: [id number] us Erwin Brown MD IMG CT PROCEDURES [...] signed by Steve GOLD T: Report ID: [id number] Reading Location: [id number] Procedure Note Steve Rodriguez MD - 02/20/2025 [...] 3 days ago and was seen by [facility] care doctor. Patient notes that for the [...] signed by Steve GOLD T: Report ID: [id number] Reading Location: [id number] Erwin Brown MD IMG CT PROCEDURES Final [...] MD LAB BLOOD ORDERABLES Fi nal Result [facility] [address] [facility] Department [place] [address] * Influenza A/B, RSV, and COVID-19 PCR Nasopharyngeal (02/20/2025 7:32 AM CDT) Pathologist [facility] COVID-19 RNA Negative Negative Influenza A RNA Negative Negative [facility] Influenza B RNA Negative Negative [facility] RSV RNA Negative Negative [facility] Comment: Interpretive data: Testing performed by [facility]. This test is performed using the [employer] Xpert Xpress CoV-2/Flu/RSV plus assay. This is a multiplex, real-time reverse transcriptase PCR assay intended for the qualitative detection of nucleic acid from SARS-CoV-2, influenza A, influenza B, and respiratory syncytial virus. This assay has been cleared by the [place] Food and Drug administration. The performance characteristics have been verified by the [facility]. Results must be considered in the clinical context, and a negative result does not rule out infection. Interpretive Data last revised 2023 Nasopharyngeal 02/20/2025 7: 32 AM CDT 02/20/2025 7:35 AM CDT Narrative ADELA - 02/20/2025 8:20 AM CDT Is the Patient experiencing symptoms consistent with COVID?->Yes Erwin Brown MD LAB MICROBIOLOGY - GENE RAL ORDERABLES Final Result Performing Organization Address [facility] Co de Phone Number ADELA [address] [employer] [place] [address] * (ABNORMAL) eGFR (02/20/2025 7:32 AM CDT) Pathologist [facility] eGFR 55(L) >=60 mL/min/1. 73 m2 [...] ORDERABLES Fi nal Result Performing Organization Address City/[facility]/ZIP Co de Phone Number ADELA [address] Department [place] [address] [place] [address] * Differential, auto (02/20/2025 7:32 AM CDT) Pathologist [facility] Neutrophil abs 6.24 1.50 - 6.50 K/cumm Imm gran abs 0.08 0.00 - 0.10 K/cumm [facility] Lymphocyte abs 1.31 0.80 - 3.30 K/cumm [facility] Monocyte abs 0.38 0.20 - 0.80 K/cumm [facility] Eosinophil abs 0.02 0.00 - 0.50 K/cumm [facility] Basophil abs 0.04 0.00 - 0.10 K/cumm [facility] Neutrophil pct 77.4 % [facility] Comment: Interpretive Data Percent cell count reference ranges are not reported, since discordance with absolute values may lead to misinterpretation of CBC data. Current Interpretive Data was last revised on 2017. Imm gran pct 1.0 % [facility] Comment: Interpretive Data Percent cell count reference ranges are not reported, since discordance with absolute values may lead to misinterpretation of CBC data. Current Interpretive Data was last revised on 2017. Lymphocyte pct 16.2 % [facility] Comment: Interpretive Data Percent cell count reference ranges are not reported, since discordance with absolute values may lead to misinterpretation of CBC data. Current Interpretive Data was last revised on 2017. Monocyte pct 4.7 % [facility] Comment: Interpretive Data Percent cell count reference ranges are not reported, since discordance with absolute values may lead to misinterpretation of CBC data. Current Interpretive Data was last revised on 2017. Eosinophil pct 0.2 % [facility] Comment: Interpretive Data Percent cell count reference ranges are not reported, since discordance with absolute values may lead to misinterpretation of CBC data. Current Interpretive Data was last revised on 2017. Basophil pct 0.5 % [facility] Comment: Interpretive Data Percent cell count reference ranges are not reported, since discordance with absolute values may lead to misinterpretation of CBC data. Current Interpretive Data was last revised on 2017. Blood 02/20/2025 7:32 AM CDT 02/20/2025 7:34 AM CDT us Erwin Brown MD LAB BLOOD ORDERABLES Fi nal Result ADELA [address] [facility] Department [place] [address] * (ABNORMAL) CBC with auto differential (02/20/2025 7:32 AM CDT) [facility] WBC 8.07 3.80 - 9.90 K/cumm Hgb 13.0 11.9 - 15.5 g/dL [facility] Hct 38.5 35.6 - 45.5 % [facility] Plt 265 150 - 400 K/cumm [facility] MPV 8.6(L) 9.1 - 12.3 fL [facility] RBC 4.37 3.90 - 5.20 M/cumm [facility] MCV 88.1 81.3 - 96.4 fL [facility] MCH 29.7 27.1 - 33.3 pg [facility] MCHC 33.8 32.3 - 35.7 g/dL [facility] RDW CV 12.6 11.1 - 14.9 % [facility] RDW SD 40.8 35.7 - 48.1 fL [facility] NRBC abs 0.00 0.00 - 0.01 K/cumm [facility] Blood Venous blood specimen / Unknown 02/20/2025 7:32 AM CDT 02/20/2025 7:34 AM CDT Erwin Brown MD LAB BLOOD ORDERABLES Fi nal Result Performing Organization Address City/[facility]/ZIP Co de Phone Number [address] [employer] [place] [address] * Phosphorus (02/20/2025 7:32 AM CDT) [facility] Phosphorus, pl 3.1 2.3 - 4.5 mg/dL Blood 02/20/2025 7:32 AM CDT 02/20/2025 7:34 AM CDT Erwin Brown MD LAB BLOOD ORDERABLES Fi nal Result [address] [employer] [place] [address] * Magnesium (02/20/2025 7:32 AM CDT) [facility] Magnesium 1.9 1.4 - 2.5 mg/dL Blood 02/20/2025 7:32 AM CDT 02/20/2025 7:34 AM CDT Erwin Brown MD LAB BLOOD ORDERABLES Fi nal Result [facility] [address] [facility] Department [place] [address] * (ABNORMAL) Comprehensive metabolic panel (02/20/2025 7:32 AM CDT) Pathologist [facility] Sodium 138 135 - 145 mmol/L Potassium, pl 4.5 3.3 - 4.9 mmol/L [facility] Comment:Hemolyzed; Potassium value may be falsely elevated by as much as 1.0 mmol/L. Suggest redraw and reanalysis. Chloride 106 97 - 110 mmol/L [facility] CO2 18(L) 22 - 32 mmol/L [facility] Anion gap 14 2 - 15 mmol/L [facility] BUN 21 6 - 25 mg/dL [facility] Creatinine 1.08 0.60 - 1.10 mg/dL [facility] Glucose 110 70 - 199 mg/dL [facility] Comment: Interpretive Data Fasting glucose >/= 126 [...] classification and Diagnosis of Diabetes Diabetes Care 202; 46: S19-S40. Current interpretive data was last revised 2022. Calcium 9.4 8.5 - 10.3 mg/dL [facility] Bilirubin, total 0.6 0.1 - 1.2 mg/dL [facility] Protein, pl 6.8 6.5 - 8.5 g/dL [facility] Albumin 4.2 3.5 - 5.0 g/dL [facility] Alk phos 68 40 - 130 Units/L [facility] ALT 11 7 - 45 Units/L [facility] AST 25 10 - 45 Units/L ADELA GAO Comment:Hemolyzed; result ma y be falsely elevated Blood 02/20/2025 7:32 AM CDT 02/20/2025 7:34 AM CDT Erwin Brown MD LAB BLOOD ORDERABLES Fi nal Result Performing Organization Address City/[facility] Co de Phone Number ADELA [address] [facility] Department [place] [address] * ECG 12 lead (02/20/2025 6:22 AM CDT) Ventricular Rate EKG/Min 99 BPM [facility] Atrial Rate [address] [facility] CO-Interval (MSEC) [address] [facility] QRS-Interval (MSEC) [address] [facility] QT-Interval (MSEC) [address] [facility] QTc [address] [facility] P [place] [address] [facility] R [place] 19 degrees [facility] T [place] 53 degrees [facility] Diagnosis Poor data quality, interpretation may be adversely affected Normal sinus rhythm When compared with ECG of 03-NOV-2023 12:11, Premature atrial complexes are no longer Present T wave inversion no longer evident in Inferior leads Confirmed by LILIYA MAURICE M.D. ([id number]) on 02/20/2025 2:41:54 PM [facility] 02/20/2025 6:22 AM CDT 02/20/2025 2:41 PM CDT us Erwin Brown MD ECG ORDERABLES Final R esult Performing Organization Address City/[facility]/ZIP Co de Phone Number [facility] * XR Knee Left 1 [...] by Tomer Reese M.D. T: Report ID: [id number] Reading Location: [place] [address] Procedure Note Tomer Reese MD - 02/17/2025 ORDERING MD: : OrderingProviderFirstName : OrderingProviderLastName ATTENDING MD: : AttendingctorFirstName : AttendingctorGenarotNamshirlene SERVICE TYPE: : PatientClass ORD #: : [...] by Tomer Reese M.D. T: Report ID: [id number] Reading Location: [place] [address] us [facility] BERNAL IMG XR PROCEDURES Fin [...] by Tomer Reese M.D. T: Report ID: [id number] Reading Location: [id number] Procedure Note Tomer Reese MD - 02/17/2025 [...] by Tomer Reese M.D. T: Report ID: [id number] Reading Location: [id number] us [facility] BERNAL IMG XR PROCEDURES Fin [...] by Tomer Reese M.D. T: Report ID: [id number] Reading Location: [id number] Procedure Note Tomer Reese MD - 02/17/2025 [...] by Tomer Reese M.D. T: Report ID: [id number] Reading Location: [id number] [facility] BERNAL IMG XR PROCEDURES Fin al [...] by Tomer Reese M.D. T: Report ID: [id number] Reading Location: [id number] Procedure Note Tomer Reese MD - 02/17/2025 [...] by Tomer Reese M.D. T: Report ID: [id number] Reading Location: [place] [address] [facility] BERNAL IMG XR PROCEDURES Fin al [...] by Tomer Reese M.D. T: Report ID: [id number] Reading Location: [id number] Procedure Note Tomer Reese MD - 02/17/2025 [...] by Tomer Reese M.D. T: Report ID: [id number] Reading Location: [id number] us [facility] BERNAL IMG XR PROCEDURES Fin al Result * Flexible Sigmoidoscopy (04/14/2024 11:51 AM CDT) Anatomical Region Laterality Modality Other Narrative Procedure Note Stevie Suarez MD - 04/14/2024 11:[address] [facility] GI ENDOSCOPY Patient Name: Latesha Lilly Procedure Date: 04/14/2024 11:51 AM Date of : 1955 Admit Type: Outpatient Age: 68 Gender: Female Attending MD: Stevie Vyas MD Room: [facility] ENDOSCOPY ROOM [facility] Note Status: Finalized Procedure: Flexible Sigmoidoscopy Indications: [...] by the physician, the nurse and the tabulating supervisor in the procedure room. Mental Status Examination: [...] On: 04/14/2024 11:51 AM Recognized by the [place] [employer] for promoting quality [...] age 38, based on guidelines of the [place] [employer] (ACR Practice Parameter for the Performance of Screening and Diagnostic Mammography) and [employer]. For women [...] Siegel MD - 11/03/2023 1:[address] [facility] GI ENDOSCOPY Patient Name: Latesha Lilly Procedure Date: 11/03/2023 1:40 PM Date of : 1955 Admit Type: Outpatient Age: 68 Gender: Female Attending MD: Elisabeth Siegel M.D. Room: [facility] ENDOSCOPY ROOM 05 Note Status: Finalized Procedure: [...] The scope was passed under direct vision.The [id number]-CI401G colonoscope was introduced through theanus and advanced [...] On: 11/03/2023 1:40 PM Recognized by the [place] [employer] for promoting quality in endoscopy Elisabeth Siegel MD ENDOSCOPY PROCEDURES [place] l Result * Dexa Axial Skeleton Bone Density 1 or 2 Site (09/05/2023 8:28 AM PLASTERER STUCCO) Anatomical Region Laterality Modality Body N/A Mammography 09/05/2023 9:00 AM PLASTERER [facility]O Narrative 09/05/2023 9:01 AM PLASTERER [facility] EXAM DESCRIPTION: DEXA AXIAL SKELETON BONE DENSITY 1 OR MORE SITES REASON FOR STUDY: 67 y/o year old F with given history of: Postmenopausal status. History of prior fracture. Patient has taken/is taking Fosamax, vitamin-D and calcium. History of asthma or emphysema. Rotary Drill Operator Helper/Model: Operative Mind A (S/N [id number]) CLINICAL INFORMATION: Current height: 66 inches Maximum [...] Christine Lorenzana M.D. TW: TW Report ID: [id number] Reading Location: [id number] Procedure Note Christine Lorenzana MD - 09/05/2023 EXAM DESCRIPTION: DEXA AXIAL SKELETON BONE DENSITY 1 OR MORE SITES REASON FOR STUDY: 67 y/o year old F with given history of:Postmenopausal status. History of prior fracture. Patient has taken/is taking Fosamax, vitamin-D and calcium. History of asthma or emphysema. Rotary Drill Operator Helper/Model: Hologic Horizon A (S/N [id number]) CLINICAL INFORMATION: Current height: 66 inches Maximum [...] Christine Lorenzana M.D. TW: TW Report ID: [id number] Reading Location: [id number] [facility] BERNAL IMG DXA PROCEDURES Fi nal Result from Last 3 Months or Most Recently Relevant to Health Maintenance Insurance [facility] MED[facility]ARE [place] [id number] [facility] [place] MEDICARE [place] Advance Directives For more information, please contact: [phone] * Full Code (Latest Code Status on File) Date Activated Date Inactivated Comments 04/14/2024 11:23 AM 04/17/2024 8:36 PM * Full Code Date Activated Date Inactivated Comments 04/13/2024 2:35 AM 04/14/2024 11:23 AM Care Teams Phytochemistry Professor Relationship Specialty Start Date End Date Сергей Cunningham MD [address] [place] [address] PCP - General Internal Medicine 01/15/19 Reina Mena MD [address] [facility], [address] [address] Consulting Physician Pain Management 10/12/22 [place] [id number] [address] Consulting Physician Cardiology 08/04/23
--- OUTSIDE RECORDS SUMMARY | 2025-02-27 15:02 | XMS_ITS | Encounter Summary ---
Author Organization [facility] Healthcare Address [address] [place] [address] Care Team Providers Care Warehouser Name Role Phone Сергей Cunningham MD Primary Care Provider + Reina Mena MD Unavailable Pedro Momin MD Unavailable Reason for Referral * MRI/CAT/PET Scan (Routine) - Closed Specialty Diagnoses / Procedures Referred By Contac t Referred To Contact Radiology Diagnoses Radiculopathy, lumbar region Bulge of lumbar disc without myelopathy Intractable low back pain Procedures MRI Lumbar Spine WO Contrast Reina Mena MD [address] [place] [address] [address] Phone: tel: fax: [address] [phone] Referral ID Status Reason Start Date Expiration Date Visits Re quested Visits Authorized [id number] Closed 02/25/2025 03/27/2026 1 1 Reason for Visit * Reason Comments Follow-up Encounter Details Date Type Department Care Team (Latest Contact Info) Description 02/25/2025 8:32 AM CDT - 02/25/2025 11:59 PM CDT Hospital Encounter [facility] Pain Mgmt [address] [place] [id number] Reina Mena MD [address] [facility], [address] [address] Radiculopathy, lumbar region (Primary Dx); Bulge of [...] materials from doctor or pharmacy Never 05/14/2024 [facility] Utilities Answer Date Recorded In the past 12 months has e electric, gas, oil, or water company [...] often do you attend chur ch or restorationist services? 1 to 4 times per year 04/15/2024 Do you belong to any clubs o r organizations such as jain groups, unions, fraternal or athletic groups, or [...] any time in the past 12 m [facility], were you homeless or living in a group home (including now)? No 04/15/2024 Personal Safety Answer Date Recorded Have you ever been in or are you currently in a harmful physical or emotional relationship or is someone making you feel afraid or unsafe? Denies 02/20/2025 Comments No Sex and Gender Information Value Date Recorded Sex Assigned at Not on file Legal Sex Female 7:20 PM SUPERVISOR WINTER Gender Identity Female 08/19/2022 6:55 AM SUPERVISOR WINTER Sexual Orientation Not on file documented as of this encounter Last Filed Vital Signs Vital Sign Reading Time Taken Comments Blood Pressure 137/85 02/25/2025 8:41 AM CDT Pulse 81 02/25/2025 8:41 AM CDT Temperature 36.3 C (97.3 F) 02/25/2025 8:41 AM CDT Respiratory Rate 22 02/25/2025 8:41 AM CDT Oxygen Saturation 99% 02/25/2025 8:41 AM CDT Inhaled Oxygen Concentration - - Weight - - Height - - Body Mass Index - - documented in this encounter Discharge Instructions * Discharge Instructions* Prudence Conroy RN - 02/25/2025 9:47 AM CDT - MRI is scheduled for 02/26/25 at 8PM - Please 30 minutes early for check in - Enter through main entrance - MRI center is on the lower level documented in this encounter Medications at Time of Discharge albuterol 2.5 mg /3 mL (0.083 %) [...] on file documented as of this encounter Results * MRI Lumbar Spine [...] entirety of the spinal axis demonstrates 7 yps-ton-fgvaeja cervical vertebrae and 12 rib-bearing vertebrae in [...] Rigo Swartz M.D. JOSHUA T: Report ID: [id number] Reading Location: [place] [address] Procedure Note Rigo Swartz MD - 02/27/2025 [...] spine reconstructions 02/20/2025; thoracic and lumbar spine vgdpjluntl60/30/2025 and 01/19/2023; thoracic spine radiograph 11/02/2022; DEXA scan09/05/2023: Reported as osteoporosis; MRI lumbar spine without contrast 09/26/2022. FINDINGS: SEGMENTATION: Utilization of prior imaging for top downcounting of the entirety of the spinal axis demonstrates 7 egm-lwa-wbjaqna cervical vertebrae and 12 rib-bearing vertebrae in [...] signed by Rigo LEWIS T: Report ID: [id number] Reading Location: [place] [address] Reina Mena MD IM MRI PROCEDURES Final Result documented in this encounter Visit Diagnoses Diagnosis Radiculopathy, lumbar region- Primary Thoracic or lumbosacral neuritis or radiculitis, unspecified Bulge of lumbar disc without myelopathy Intractable low back pain Radiculopathy, lumbar region Thoracic or lumbosacral neuritis or radiculitis, unspecified Bulge of lumbar disc without myelopathy Intractable low back pain documented in this encounter Care Teams Warehouser Relationship Specialty Start Date End Date Сергей Cunningham MD [address] [place] [address] PCP - General Internal Medicine 01/15/19 Reina Mena MD [address] [facility], [address] [address] Consulting Physician Pain Management 10/12/22 [place] [id number] [address] Consulting Physician Cardiology 08/04/23 documented as of this encounter
[2025-02-27 15:19] LABS: Hematocrit 43.2 % (37.0-47.0); Hemoglobin 14.6 g/dL (12.0-15.0); Mean Corpuscular HGB Conc 33.8 g/dl (32-36); Mean Corpuscular Hemoglobin 30.2 pg (26-34); Mean Corpuscular Volume 89.4 fl (80-100); Platelet Count Result 340 k/mm3 (150-375); Red Blood Count 4.83 M/mm3 (4.2-5.4); White Blood Count 9.8 K/mm3 (4.5-10.0)
[2025-02-27 17:11] LABS: Anion Gap 13 mmol/L (4-12); Blood Urea Nitrogen 29 mg/dL (7-17); Calcium 9.6 mg/dL (8.4-10.2); Carbon Dioxide 25 mmol/L (22-30); Chloride 98 mmol/L (98-107); Estimated Glomerular Filt Rate 27; Glucose 112 mg/dL (65-110); Iron 68 ug/dL (37-170); Potassium 3.6 mmol/L (3.4-5.0); Sodium 136 mmol/L (137-145)
[2025-02-27 17:20] LABS: Percent Iron Saturation 21 % (20-50)
[2025-02-27 17:52] LABS: Ferritin 71.90 ng/mL (11.1-264)
== END 2025-02-27 14:57 | disposition home or self-care (01) ==
PROVIDERS: PCP Specialist; Visit Provider Internal Medicine Hematology & Oncology
DX: D64.9 Anemia, unspecified (principal)
CPT/HCPCS: 36415; 80048; 82728; 83540; 83550; 85027